=== PATIENT | male | born 1950 | race Caucasian/White ===

== ENCOUNTER 2023-11-01 08:45 | Inpatient (IN) | payer MEDICARE, SELFPAY ==
[2023-11-01] VITALS (9 sets, daily range): BP systolic 118–167; BP diastolic 62–98; BMI 33.2
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
[2023-11-01 07:34] LABS: % Basophils 0.5 % (0-2); % Eosinophils 1.2 % (0-6); % Immature Granulocytes 0.3 % (0-0.5); % Lymphocytes 10.6 % (20.5-51.1); % Monocytes 8.7 % (1.7-9.3); % Neutrophils 78.7 % (42.2-75.2); Absolute Basophils 0.1 10^3/uL (0-0.2); Absolute Eosinophils 0.1 10^3/uL (0-0.7); Absolute Lymphocytes 1.1 10^3/uL (1.2-3.4); Absolute Monocytes 0.9 10^3/uL (0.1-0.6); Absolute Neutrophils 8.2 10^3/uL (1.4-6.5); Hematocrit 50.9 % (39.0-52.0); Hemoglobin 16.4 g/dL (13.0-18.0); Mean Corp Hgb Conc. 32.2 g/dL (33.0-37.0); Mean Corpuscular Hgb 29.5 pg (27.0-31.0); Mean Corpuscular Volume 91.7 fL (80.0-94.0); Mean Platelet Volume 12.4 fL (7.4-10.4); Nucleated Red Blood Cells % 0 % (-); Platelet Count 159 10^3/uL (130-400); Red Blood Cell Count 5.55 10^6/uL (4.70-6.10); Red Cell Dist. Width 14.3 % (11.5-14.5); White Blood Cell Count 10.4 10^3/uL (4.8-10.8)
[2023-11-01 07:43] LABS: ALT (SGPT) 26 U/L (0-50); AST (SGOT) 24 U/L (17-59); Alkaline Phosphatase 62 U/L (38-126); Blood Urea Nitrogen 20 mg/dl (9-20); Calcium 9.3 mg/dl (8.4-10.2); Carbon Dioxide 31 mmol/L (22-30); Chloride 99 mmol/L (98-107); Glucose 141 mg/dl (70-99); Potassium 4.8 mmol/L (3.5-5.1); Sodium 138 mmol/L (135-145); Total Bilirubin 1.1 mg/dl (0.2-1.3); Total Protein 6.8 g/dl (6.3-8.2); eGFR > 60.00
[2023-11-01] MEDS: DUONEB 3 ML INH ×5 (07:48→19:26)
[2023-11-01] MEDS: SOLU-MEDROL PF 125 MG IV (07:48)
[2023-11-01 07:53] LABS: NT-proBNP 1190 pg/ml; Troponin I < 0.012 ng/ml
[2023-11-01] MEDS: LASIX 40 MG IV (08:43)
[2023-11-01 09:13] LABS: COVID-19 Antigen Negative (Negative)
--- NOTE | 2023-11-01 10:26 | CM ---
MEt with patient who reports he continues to live in a recovery house. He is independent. He has 3 steps to get into his apartment at the house. He does not use any DME.
PCP DR. Frederick Mosquera
PHarmacy: [facility]
His sister, Linda Sylvester is his closest family member.
HE is currently wearing oxygen in ER bed. HE does not use at home.
PLAN: HOme no needs.
[2023-11-01 11:42] LABS: Troponin I < 0.012 ng/ml
--- NOTE | 2023-11-01 12:12 | PTCARENOTE ---
pt admitted from ED AOx3 no c/O pain. RODRIGUEZ, 4L B/L bases exp. tele monitor hx of afib for which pt takes Eliquis. Wheeze abd round obese. reports last BM this AM cont B&B no edema, +PP b/l. skin CDI
--- NOTE | 2023-11-01 12:48 | PTCARENOTE ---
pt unsure of medication list, pharmacy notified
--- NOTE | 2023-11-01 13:05 | PHANOTE ---
Med Rec Note:
Home med list compiled from Dr Perez and JASSIW note on 10/13/23. Unable to interview pt due to pt at a test.
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
[2023-11-01] MEDS: SYMBICORT 160/4.5 MCG INHALER 2 PUFF INH (15:19)
[2023-11-01] MEDS: ZESTRIL 20 MG PO (15:38)
[2023-11-01 16:59] LABS: Troponin I < 0.012 ng/ml
[2023-11-01 17:19] LABS: Glucose - Point of Care 148 mg/dl (70-99)
[2023-11-01] MEDS: NOVOLOG FLEXPEN-LOW RESISTANCE SC (17:32)
[2023-11-01] MEDS: CRESTOR 10 MG PO (17:32)
[2023-11-01] MEDS: ELIQUIS 5 MG PO (19:48)
[2023-11-01 21:23] LABS: Glucose - Point of Care 150 mg/dl (70-99)
[2023-11-01 23:56] LABS: Troponin I < 0.012 ng/ml
[2023-11-02 03:28] VITALS: BP 130/79
[2023-11-02 05:39] LABS: Hematocrit 48.9 % (39.0-52.0); Hemoglobin 15.9 g/dL (13.0-18.0); Mean Corp Hgb Conc. 32.5 g/dL (33.0-37.0); Mean Corpuscular Hgb 29.6 pg (27.0-31.0); Mean Corpuscular Volume 90.9 fL (80.0-94.0); Mean Platelet Volume 12.5 fL (7.4-10.4); Platelet Count 140 10^3/uL (130-400); Red Blood Cell Count 5.38 10^6/uL (4.70-6.10); White Blood Cell Count 11.8 10^3/uL (4.8-10.8)
[2023-11-02 06:03] LABS: Troponin I < 0.012 ng/ml
[2023-11-02 06:05] LABS: ALT (SGPT) 24 U/L (0-50); AST (SGOT) 23 U/L (17-59); Albumin 3.9 g/dl (3.5-5.0); Alkaline Phosphatase 62 U/L (38-126); Blood Urea Nitrogen 27 mg/dl (9-20); Calcium 9.2 mg/dl (8.4-10.2); Carbon Dioxide 30 mmol/L (22-30); Chloride 100 mmol/L (98-107); Estimated Creatinine Clearance > 125 ml/min; Glucose 119 mg/dl (70-99); Magnesium 2.4 mg/dl (1.6-2.3); Potassium 4.3 mmol/L (3.5-5.1); Sodium 136 mmol/L (135-145); Total Bilirubin 0.8 mg/dl (0.2-1.3); Total Protein 6.5 g/dl (6.3-8.2); eGFR > 60.00
[2023-11-02 07:00] VITALS: BP 123/78
[2023-11-02] MEDS: DUONEB 3 ML INH ×4 (07:40→20:35)
[2023-11-02] MEDS: NOVOLOG FLEXPEN-LOW RESISTANCE SC ×3 (08:07→16:56)
[2023-11-02] MEDS: ZESTRIL 20 MG PO (08:09)
[2023-11-02] MEDS: PROSCAR 5 MG PO (08:09)
[2023-11-02] MEDS: DELTASONE 40 MG PO (08:09)
[2023-11-02] MEDS: ELIQUIS 5 MG PO ×2 (08:09→21:17)
[2023-11-02] MEDS: NORVASC 10 MG PO (08:09)
[2023-11-02] MEDS: FLOMAX 0.400000000000000022 MG PO (08:09)
[2023-11-02 11:00] VITALS: BP 127/66
[2023-11-02 12:25] LABS: Glucose - Point of Care 150 mg/dl (70-99)
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
[2023-11-02] MEDS: LASIX 40 MG IV (13:36)
[2023-11-02 15:00] VITALS: BP 125/62
[2023-11-02 16:53] LABS: Glucose - Point of Care 134 mg/dl (70-99)
[2023-11-02] MEDS: CRESTOR 10 MG PO (17:40)
[2023-11-02 19:36] VITALS: BP 109/53
[2023-11-02 21:24] LABS: Glucose - Point of Care 199 mg/dl (70-99)
[2023-11-02] MEDS: SOLU-MEDROL PF 40 MG IV (21:47)
[2023-11-02 23:40] VITALS: BP 109/66
--- NOTE | 2023-11-03 02:46 | PTCARENOTE ---
Patient continues to be tachycardic with any activity OOB. Patient stood at bedside to use urinal and heart rate noted to be as high as 175 bpm on monitor. Patient in the 80-90s at rest. AJY Love on unit. Reported patient receives
scheduled Duo nebs. Xopenex ordered in place of Duo neb. Will monitor.
--- NOTE | 2023-11-03 03:02 | W.PN.UPDATE ---
Update Note
Progress Note Update
HR noted to increase to 160s with any activity. Recovers once still.
Will change duonebs to xopenex due to HR
Hx of afib but on no rate control medications.
Will continue to monitor closely, may require rate control meds.
[2023-11-03 03:36] VITALS: BP 133/80
[2023-11-03 05:31] LABS: Hemoglobin 15.9 g/dL (13.0-18.0); Mean Corp Hgb Conc. 31.8 g/dL (33.0-37.0); Mean Corpuscular Hgb 30.1 pg (27.0-31.0); Mean Corpuscular Volume 94.5 fL (80.0-94.0); Mean Platelet Volume 12.8 fL (7.4-10.4); Platelet Count 175 10^3/uL (130-400); Red Blood Cell Count 5.29 10^6/uL (4.70-6.10); Red Cell Dist. Width 14.5 % (11.5-14.5); White Blood Cell Count 12.1 10^3/uL (4.8-10.8)
[2023-11-03 06:15] LABS: ALT (SGPT) 30 U/L (0-50); AST (SGOT) 28 U/L (17-59); Albumin 3.8 g/dl (3.5-5.0); Alkaline Phosphatase 68 U/L (38-126); Blood Urea Nitrogen 29 mg/dl (9-20); Calcium 9.1 mg/dl (8.4-10.2); Carbon Dioxide 36 mmol/L (22-30); Chloride 101 mmol/L (98-107); Estimated Creatinine Clearance 102 ml/min; Glucose 154 mg/dl (70-99); Potassium 5.6 mmol/L (3.5-5.1); Sodium 140 mmol/L (135-145); Total Bilirubin 0.8 mg/dl (0.2-1.3); Total Protein 6.4 g/dl (6.3-8.2); eGFR > 60.00
--- NOTE | 2023-11-03 06:45 | W.PN.UPDATE ---
Update Note
Progress Note Update
K+ 5.6 this am.
Will give one dose lokelma and hold lisinopril this am
recheck BMP later today
--- NOTE | 2023-11-03 06:46 | PTCARENOTE ---
Patient's K+ 5.6 this morning. K+ yesterday was 4.3. Unsure of etiology. JAY Love made aware, no new orders given at this time.
[2023-11-03 07:00] VITALS: BP 133/89
[2023-11-03] MEDS: XOPENEX 1.25 MG INHALANT SOLUTION INH ×3 (07:20→19:55)
[2023-11-03] MEDS: LOKELMA 5 GRAM PO (07:34)
[2023-11-03 08:10] LABS: Glucose - Point of Care 304 mg/dl (70-99)
[2023-11-03] MEDS: NORVASC 10 MG PO (08:32)
[2023-11-03] MEDS: FLOMAX 0.400000000000000022 MG PO (08:32)
[2023-11-03] MEDS: PROSCAR 5 MG PO (08:33)
[2023-11-03] MEDS: SOLU-MEDROL PF 40 MG IV (08:33)
[2023-11-03] MEDS: ELIQUIS 5 MG PO ×2 (08:33→20:33)
[2023-11-03] MEDS: NOVOLOG FLEXPEN-LOW RESISTANCE 4 UNITS SC (08:48)
[2023-11-03 11:00] VITALS: BP 124/80
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
[2023-11-03 12:30] LABS: Glucose - Point of Care 148 mg/dl (70-99)
[2023-11-03] MEDS: NOVOLOG FLEXPEN-LOW RESISTANCE SC (12:32)
[2023-11-03 15:00] VITALS: BP 122/85
--- NOTE | 2023-11-03 16:38 | CM ---
Patient seen at bedside, on O2, currently no O2 at home. Patient would like [facility] at discharge if needed. CM will continue to follow for discharge planning needs.
Plan; home with VN vs home with no needs; watch for home O2
--- NOTE | 2023-11-03 16:38 | PTCARENOTE ---
pt HR elevated with activity, but does deturn to normal rate shortly after. attending notified.
[2023-11-03 16:42] LABS: Glucose - Point of Care 154 mg/dl (70-99)
[2023-11-03] MEDS: CRESTOR 10 MG PO (17:57)
[2023-11-03] MEDS: NOVOLOG FLEXPEN-LOW RESISTANCE 1 UNITS SC (17:57)
[2023-11-03 19:30] VITALS: BP 139/90
[2023-11-03] MEDS: LOPRESSOR 12.5 MG PO (20:33)
[2023-11-03 23:22] VITALS: BP 135/88
[2023-11-04 03:20] VITALS: BP 163/87
[2023-11-04 05:29] LABS: Hematocrit 48.4 % (39.0-52.0); Hemoglobin 15.3 g/dL (13.0-18.0); Mean Corp Hgb Conc. 31.6 g/dL (33.0-37.0); Mean Corpuscular Hgb 29.5 pg (27.0-31.0); Mean Corpuscular Volume 93.3 fL (80.0-94.0); Mean Platelet Volume 11.9 fL (7.4-10.4); Platelet Count 169 10^3/uL (130-400); Red Blood Cell Count 5.19 10^6/uL (4.70-6.10); Red Cell Dist. Width 14.4 % (11.5-14.5); White Blood Cell Count 11.5 10^3/uL (4.8-10.8)
[2023-11-04 05:54] LABS: Blood Urea Nitrogen 24 mg/dl (9-20); Calcium 8.8 mg/dl (8.4-10.2); Carbon Dioxide 38 mmol/L (22-30); Chloride 100 mmol/L (98-107); Estimated Creatinine Clearance > 125 ml/min; Glucose 94 mg/dl (70-99); Magnesium 2.4 mg/dl (1.6-2.3); Sodium 137 mmol/L (135-145); eGFR > 60.00
[2023-11-04 07:00] VITALS: BP 147/86
[2023-11-04 07:41] LABS: Glucose - Point of Care 100 mg/dl (70-99)
[2023-11-04] MEDS: XOPENEX 1.25 MG INHALANT SOLUTION INH ×3 (08:09→19:28)
[2023-11-04] MEDS: ELIQUIS 5 MG PO ×2 (08:41→20:14)
[2023-11-04] MEDS: FLOMAX 0.400000000000000022 MG PO (08:41)
[2023-11-04] MEDS: NOVOLOG FLEXPEN-LOW RESISTANCE SC ×2 (08:41→17:03)
[2023-11-04] MEDS: LOPRESSOR 12.5 MG PO ×2 (08:42→20:18)
[2023-11-04] MEDS: DELTASONE 50 MG PO (08:42)
[2023-11-04] MEDS: PROSCAR 5 MG PO (08:42)
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
[2023-11-04 11:00] VITALS: BP 141/85
[2023-11-04 12:03] LABS: Glucose - Point of Care 178 mg/dl (70-99)
[2023-11-04] MEDS: NOVOLOG FLEXPEN-LOW RESISTANCE 1 UNITS SC (13:04)
[2023-11-04] MEDS: ATROVENT NEBULES 0.5 MG INH ×2 (13:16→19:29)
--- NOTE | 2023-11-04 14:37 | CM ---
Patient seen at bedside, patient again denied having an agency that works with him for case management. Patient is aware of possible need for Oxygen at home and is concerned about having O2 in the room that he rents. Patient has history of smoking.
CM will continue to follow for discharge planning needs.
Plan; home with VN/watch for home O2 needs.
[2023-11-04 15:00] VITALS: BP 134/79
[2023-11-04 15:41] VITALS: BMI 33.2
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
[2023-11-04 17:01] LABS: Glucose - Point of Care 144 mg/dl (70-99)
[2023-11-04] MEDS: CRESTOR 10 MG PO (17:13)
[2023-11-04] MEDS: DECADRON 6 MG IV (17:14)
[2023-11-04 21:30] LABS: Glucose - Point of Care 132 mg/dl (70-99)
[2023-11-04 23:10] VITALS: BP 136/77
[2023-11-05] MEDS: DECADRON 6 MG IV ×2 (05:27→18:07)
[2023-11-05 05:30] LABS: Hematocrit 49.1 % (39.0-52.0); Hemoglobin 16.1 g/dL (13.0-18.0); Mean Corp Hgb Conc. 32.8 g/dL (33.0-37.0); Mean Corpuscular Hgb 29.5 pg (27.0-31.0); Mean Corpuscular Volume 89.9 fL (80.0-94.0); Mean Platelet Volume 11.9 fL (7.4-10.4); Platelet Count 162 10^3/uL (130-400); Red Blood Cell Count 5.46 10^6/uL (4.70-6.10); White Blood Cell Count 11.4 10^3/uL (4.8-10.8)
[2023-11-05 05:46] LABS: Blood Urea Nitrogen 23 mg/dl (9-20); Calcium 9.3 mg/dl (8.4-10.2); Carbon Dioxide 34 mmol/L (22-30); Chloride 97 mmol/L (98-107); Estimated Creatinine Clearance > 125 ml/min; Glucose 141 mg/dl (70-99); Magnesium 2.4 mg/dl (1.6-2.3); Potassium 4.9 mmol/L (3.5-5.1); Sodium 137 mmol/L (135-145); eGFR > 60.00
[2023-11-05 05:54] LABS: NT-proBNP 587 pg/ml
[2023-11-05 06:00] VITALS: BMI 32.5
[2023-11-05 07:00] VITALS: BP 151/98
[2023-11-05] MEDS: ATROVENT NEBULES 0.5 MG INH ×3 (07:24→20:12)
[2023-11-05] MEDS: XOPENEX 1.25 MG INHALANT SOLUTION INH ×3 (07:25→20:12)
[2023-11-05 07:58] LABS: Glucose - Point of Care 116 mg/dl (70-99)
[2023-11-05] MEDS: LOPRESSOR 12.5 MG PO ×2 (07:59→19:22)
[2023-11-05] MEDS: NOVOLOG FLEXPEN-LOW RESISTANCE SC ×3 (07:59→17:19)
[2023-11-05] MEDS: FLOMAX 0.400000000000000022 MG PO (07:59)
[2023-11-05] MEDS: ELIQUIS 5 MG PO ×2 (08:00→19:20)
[2023-11-05] MEDS: PROSCAR 5 MG PO (08:00)
--- NOTE | 2023-11-05 10:13 | CM ---
Patient seen at bedside. Patient remains on O2 and stated that CM could call sister to review discharge planning needs.
Plan; call family; watch for home O2 and VN needs.
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
[2023-11-05 12:05] LABS: Glucose - Point of Care 127 mg/dl (70-99)
--- NOTE | 2023-11-05 12:08 | PN.CDI ---
CDI
- -
CDI:
Physician Documentation Request
Admit Date: 11/01/23 08:45
Dear Doctor Sincere,
Clinical Indicators:
Patient admitted with acute hypoxic respiratory failure due to COPD exacerbation & possible acute HFpEF.
2/ Lokelma 5 gm po x 1 given.
Potassium level
11/03/23
05:17
Potassium 5.6 H D
Based on the above, could you clarify in the progress notes, the appropriate diagnosis, if significant, that supports the above abnormalities and additional evaluation, monitoring and/or treatment rendered:
Hyperkalemia
Abnormal lab value, clinically insignificant
Other
Use of terms such as suspected, likely, concern for, or probable (associated with a specific diagnosis that is being evaluated, monitored, or treated as if it exists) are acceptable and can be coded in the inpatient setting, when documented at the
time of discharge.
Thank you,
MARCE Garcia RN
CDI Specialist
available via tiger text
Please use your independent medical judgment in providing your response.
[2023-11-05 14:58] VITALS: BP 125/65; PULSE 68; O2SAT 88
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
[2023-11-05 15:00] VITALS: BP 118/71; BMI 32.5
[2023-11-05] MEDS: NORVASC 2.5 MG PO (16:43)
[2023-11-05 16:58] VITALS: BP 146/87; PULSE 76; O2SAT 92
[2023-11-05 17:16] LABS: Glucose - Point of Care 139 mg/dl (70-99)
[2023-11-05] MEDS: CRESTOR 10 MG PO (18:07)
[2023-11-05] MEDS: MUCINEX 600 MG PO (19:28)
[2023-11-05] MEDS: VIBRAMYCIN 100 MG PO (19:29)
[2023-11-05 21:31] LABS: Glucose - Point of Care 139 mg/dl (70-99)
[2023-11-05 23:00] VITALS: BP 130/76
[2023-11-06] MEDS: DECADRON 6 MG IV (05:08)
[2023-11-06 05:57] LABS: Hematocrit 51.8 % (39.0-52.0); Hemoglobin 16.4 g/dL (13.0-18.0); Mean Corp Hgb Conc. 31.7 g/dL (33.0-37.0); Mean Corpuscular Hgb 28.9 pg (27.0-31.0); Mean Corpuscular Volume 91.4 fL (80.0-94.0); Mean Platelet Volume 12.5 fL (7.4-10.4); Platelet Count 202 10^3/uL (130-400); Red Blood Cell Count 5.67 10^6/uL (4.70-6.10); Red Cell Dist. Width 14.1 % (11.5-14.5); White Blood Cell Count 12.8 10^3/uL (4.8-10.8)
[2023-11-06 06:00] VITALS: BMI 32.6
[2023-11-06 06:17] LABS: Blood Urea Nitrogen 27 mg/dl (9-20); Calcium 9.6 mg/dl (8.4-10.2); Carbon Dioxide 35 mmol/L (22-30); Chloride 98 mmol/L (98-107); Estimated Creatinine Clearance 114 ml/min; Glucose 126 mg/dl (70-99); Magnesium 2.3 mg/dl (1.6-2.3); Potassium 4.8 mmol/L (3.5-5.1); Sodium 137 mmol/L (135-145); eGFR > 60.00
[2023-11-06 07:00] VITALS: BP 132/86
[2023-11-06 07:39] LABS: Glucose - Point of Care 119 mg/dl (70-99)
[2023-11-06] MEDS: ATROVENT NEBULES 0.5 MG INH ×3 (07:48→20:11)
[2023-11-06] MEDS: XOPENEX 1.25 MG INHALANT SOLUTION INH ×3 (07:48→20:11)
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
[2023-11-06] MEDS: NOVOLOG FLEXPEN-LOW RESISTANCE SC ×2 (10:27→16:53)
[2023-11-06] MEDS: NORVASC 2.5 MG PO (10:40)
[2023-11-06] MEDS: MUCINEX 600 MG PO ×2 (10:40→21:19)
[2023-11-06] MEDS: ELIQUIS 5 MG PO ×2 (10:40→21:19)
[2023-11-06] MEDS: LOPRESSOR 12.5 MG PO ×2 (10:41→21:18)
[2023-11-06] MEDS: PROSCAR 5 MG PO (10:41)
[2023-11-06] MEDS: FLOMAX 0.400000000000000022 MG PO (10:41)
[2023-11-06] MEDS: VIBRAMYCIN 100 MG PO ×2 (10:41→21:18)
[2023-11-06 11:08] VITALS: BP 127/74; PULSE 71; O2SAT 92
[2023-11-06 12:19] LABS: Glucose - Point of Care 162 mg/dl (70-99)
[2023-11-06] MEDS: NOVOLOG FLEXPEN-LOW RESISTANCE 1 UNITS SC (12:42)
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
[2023-11-06 15:00] VITALS: BP 134/76
[2023-11-06 16:36] LABS: Glucose - Point of Care 141 mg/dl (70-99)
[2023-11-06] MEDS: CRESTOR 10 MG PO (17:45)
[2023-11-06 21:40] LABS: Glucose - Point of Care 120 mg/dl (70-99)
[2023-11-06 23:25] VITALS: BP 115/70
[2023-11-07] MEDS: DESENEX/MITRAZOL/ZEASORB 1 APPLIC TOPICAL ×3 (00:33→20:37)
[2023-11-07 05:51] LABS: Hematocrit 50.3 % (39.0-52.0); Mean Corp Hgb Conc. 31.8 g/dL (33.0-37.0); Mean Corpuscular Hgb 29.8 pg (27.0-31.0); Mean Corpuscular Volume 93.7 fL (80.0-94.0); Mean Platelet Volume 12.4 fL (7.4-10.4); Platelet Count 186 10^3/uL (130-400); Red Blood Cell Count 5.37 10^6/uL (4.70-6.10); Red Cell Dist. Width 14.2 % (11.5-14.5); White Blood Cell Count 9.2 10^3/uL (4.8-10.8)
[2023-11-07 06:00] VITALS: BMI 32.5
[2023-11-07 06:12] LABS: Blood Urea Nitrogen 25 mg/dl (9-20); Calcium 9.2 mg/dl (8.4-10.2); Carbon Dioxide 37 mmol/L (22-30); Chloride 101 mmol/L (98-107); Estimated Creatinine Clearance 102 ml/min; Glucose 101 mg/dl (70-99); Potassium 4.3 mmol/L (3.5-5.1); Sodium 139 mmol/L (135-145); eGFR > 60.00
[2023-11-07 07:00] VITALS: BP 146/73
[2023-11-07] MEDS: ATROVENT NEBULES 0.5 MG INH ×3 (07:55→19:28)
[2023-11-07] MEDS: XOPENEX 1.25 MG INHALANT SOLUTION INH ×3 (07:55→19:28)
[2023-11-07 08:35] LABS: Glucose - Point of Care 108 mg/dl (70-99)
[2023-11-07] MEDS: NOVOLOG FLEXPEN-LOW RESISTANCE SC ×2 (08:43→17:31)
[2023-11-07] MEDS: LOPRESSOR 12.5 MG PO ×2 (09:25→20:36)
[2023-11-07] MEDS: MUCINEX 600 MG PO ×2 (09:25→20:36)
[2023-11-07] MEDS: PROSCAR 5 MG PO (09:25)
[2023-11-07] MEDS: ELIQUIS 5 MG PO ×2 (09:25→20:37)
[2023-11-07] MEDS: DELTASONE 40 MG PO (09:25)
[2023-11-07] MEDS: FLOMAX 0.400000000000000022 MG PO (09:26)
[2023-11-07] MEDS: NORVASC 2.5 MG PO (09:26)
[2023-11-07] MEDS: VIBRAMYCIN 100 MG PO ×2 (09:26→20:36)
--- NOTE | 2023-11-07 09:48 | CM ---
Addendum entered by Sruthi Alfaro 11/07/23 14:39:
Per Attending, will wean patient from oxygen [facility]
Addendum entered by Sruthi Alfaro 11/07/23 14:26:
Sister, Linda, notified of need for home oxygen. She stated concerns that her brother does not have the dexterity in his hands to manage O2 on his own. Attending notified via [place] Text
Home Oxygen vendor will provide education at the bedside; nursing home director will observe and verify that patient is able to demonstrate use of equipment before discharge
Addendum entered by Sruthi Alfaro 11/07/23 14:12:
Spoke with jail nut tightener, Ankush, via phone # [phone]. He stated that the residents are not permitted to smoke in the home. They are only permitted to smoke outside.
Ankush has no problem with patient going home with oxygen. No other residents have oxygen. The patient would need to be able to manage it on his own. We need to ensure that patient can demonstrate that he is able to do so.
Addendum entered by Sruthi Alfaro 11/07/23 12:22:
Plan: discharge to home today with home health services from [facility]
friend, Drew, will give him a ride home
Signed IMM on the chart
Addendum entered by Sruthi Alfaro 11/07/23 12:19:
Met with patient, weaned off oxygen; believes he will be going home today; no DC orders yet
His friend, Drew, will give him a ride home
Original Note:
CM spoke with patient's sister, Linda via phone; was only able to identify the first name of the person who owns/manages the home (his name is Ankush and she will need to get contact phone number from the patient) where her brother lives.
Patient is a smoker and pending home oxygen needs, discussed that CM would contact Home to find out if patient can return to home with home oxygen.
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
[2023-11-07 11:40] LABS: Glucose - Point of Care 165 mg/dl (70-99)
[2023-11-07] MEDS: NOVOLOG FLEXPEN-LOW RESISTANCE 1 UNITS SC (12:06)
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
--- NOTE | 2023-11-07 13:26 | W.DCSUMMARY ---
Discharge Summary
Discharge Data
Date of Admission: 11/01/23
Date of Discharge: 11/08/23
-
Pending Results: No
Hospital Course
Principal Diagnosis:
Acute hypoxic respiratory insufficiency, resolved
Chronic obstructive pulmonary disease (CODP) exacerbation
Possible acute diastolic heart failure
Chronic Diagnoses:�
Persistent Atrial fibrillation
Essential hypertension
Hyperlipidemia
[id number] diabetes
Tobacco use
History of traumatic brain injury with skull plate
Obesity, BMI 32
Consultations:�
Pulmonary
Procedures:�
None
Clinical course:�
This is a 72-year-old male with past medical history as stated above, who presented with shortness of breath, wheezing and left-sided chest discomfort.
Problem 1:
Acute hypoxic respiratory insufficiency, due to COPD exacerbation.
He was weaned from 3-4L NC oxygen back to room air.
His final walking pulse ox indicated no need for home oxygen therapy.
Problem 2:
COPD exacerbation.
This was associated with mild chest discomfort, which resolved uneventfully. Of note, his troponins were negative.
He received IV steroid while in the hospital, and was transitioned to oral prednisone 40mg daily. He can continue with prednisone taper following discharge.
Problem 3:
Possible acute diastolic CHF.
His BNP was elevated at 1190.
He received IV Lasix as needed.
His Echo was unrevealing:�noted normal left ventricular systolic function. EF 56%. Diastolic function indeterminate due to atrial fibrillation.�
As for the rest of his medical problems, they were stable during his hospital stay.
Discharge Plan
-
Patient Disposition: Other
Discharge Diagnosis/Procedures: COPD exacerbation
Condition: Fair
Diet: As tolerated
Activity: As tolerated
Driving Restrictions: As prior to admission
Blood Work: BMP in 1 week, result to your PCP
Activity Restrictions/Additional Instructions:
Continue prednisone and taper as instructed
Take doxycycline for 2 more days
Referrals:
Lazaro Alexander MD [Active] - in two to four weeks
Frederick Vázquez DO [Family Provider] - in less than 1 week
Prescriptions:
New
doxycycline hyclate 100 mg Capsule
100 mg PO Q12 2 Days Qty: 4 0RF
prednisone 10 mg Tablet
See Rx Instructions .ROUTE .COMPLEX Qty: 30 0RF
Rx Instructions:
Take By Mouth:
40 mg daily x2 days, 30 mg daily x3 days, 20 mg daily x3 days, 10 mg daily x3 days.
Continued
metformin 500 MG tablet
500 mg PO BID@0800,1700
acetaminophen 325 MG tablet
650 mg PO Q6HPRN PRN (Reason: mild pain) Qty: 30 0RF
finasteride 5 MG tablet
5 mg PO DAILY Qty: 30 0RF
rosuvastatin 10 MG tablet
10 mg PO QPM Qty: 30 0RF
Eliquis 5 mg Tablet
5 mg PO BID
amlodipine-benazepril 10-40 mg capsule
1 cap PO DAILY
Trelegy Ellipta 200-62.5-25 mcg blister with device
1 inh INHALATION R DAILY
multivitamin Tablet
1 tab PO DAILY
zinc sulfate 50 mg zinc (220 mg) Tablet
50 mg PO DAILY
cholecalciferol (vitamin D3) [Vitamin D3] 25 mcg (1,000 unit) Capsule
50 mcg PO DAILY
Discharge Orders:
Discharge Patient (As Directed); Ordered 11/08/23
Ordered By: Mague Post
--- NOTE | 2023-11-07 14:47 | VNURNOTE ---
Home Health Liaison met with patient at 1130 to discuss [facility] nurse/therapy, visits, schedule and homebound status. Patient is agreeable and understands that visits at home will be 2-3 x per week to assess and teach medical management.
Call to patient's sister Linda to discuss above and she is in agreement and supportive but due to recent surgery she is unable to assist patient.
[facility] brochure provided with contact information. Patient is aware that [facility] will contact him for start of care in 1-2 days after discharge from .
[facility] referral completed in [facility].
Home O2 assessment again today and results qualify patient for O2.
Documentation faxed to [email or web address] at [phone] and Simon contacted with regard to patient instruction to determine whether patient can manage home O2 safely.
Liaison & CM discussed patient safety with new home O2, smoking hx and ability to manage home O2 on his own.
Simon has shelter manager biostatistics Ankush contact info([phone]) and documentation except updated notes.
[2023-11-07 15:00] VITALS: BP 150/77
[2023-11-07 16:49] LABS: Glucose - Point of Care 141 mg/dl (70-99)
[2023-11-07] MEDS: CRESTOR 10 MG PO (17:33)
[2023-11-07 20:35] VITALS: BP 149/97
[2023-11-07 21:43] LABS: Glucose - Point of Care 174 mg/dl (70-99)
[2023-11-07 23:05] VITALS: BP 131/76
[2023-11-08 06:00] VITALS: BMI 32.3
[2023-11-08 07:00] VITALS: BP 155/95
[2023-11-08 07:13] LABS: Hematocrit 51.6 % (39.0-52.0); Hemoglobin 16.6 g/dL (13.0-18.0); Mean Corp Hgb Conc. 32.2 g/dL (33.0-37.0); Mean Corpuscular Hgb 30.1 pg (27.0-31.0); Mean Corpuscular Volume 93.6 fL (80.0-94.0); Mean Platelet Volume 12.3 fL (7.4-10.4); Platelet Count 190 10^3/uL (130-400); Red Blood Cell Count 5.51 10^6/uL (4.70-6.10); Red Cell Dist. Width 13.8 % (11.5-14.5); White Blood Cell Count 8.2 10^3/uL (4.8-10.8)
[2023-11-08 07:16] LABS: Glucose - Point of Care 98 mg/dl (70-99)
[2023-11-08 07:24] LABS: Glucose - Point of Care 94 mg/dl (70-99)
[2023-11-08] MEDS: NOVOLOG FLEXPEN-LOW RESISTANCE SC ×2 (07:26→13:02)
[2023-11-08] MEDS: XOPENEX 1.25 MG INHALANT SOLUTION INH ×2 (07:32→13:33)
[2023-11-08] MEDS: ATROVENT NEBULES 0.5 MG INH ×2 (07:32→13:33)
[2023-11-08 07:45] LABS: Blood Urea Nitrogen 20 mg/dl (9-20); Calcium 9.7 mg/dl (8.4-10.2); Carbon Dioxide 35 mmol/L (22-30); Chloride 99 mmol/L (98-107); Estimated Creatinine Clearance 114 ml/min; Glucose 109 mg/dl (70-99); Potassium 5.5 mmol/L (3.5-5.1); Sodium 140 mmol/L (135-145); eGFR > 60.00
[2023-11-08] MEDS: LOPRESSOR 12.5 MG PO (08:36)
[2023-11-08] MEDS: DELTASONE 40 MG PO (08:36)
[2023-11-08] MEDS: FLOMAX 0.400000000000000022 MG PO (08:36)
[2023-11-08] MEDS: PROSCAR 5 MG PO (08:36)
[2023-11-08] MEDS: VIBRAMYCIN 100 MG PO (08:36)
[2023-11-08] MEDS: MUCINEX 600 MG PO (08:36)
[2023-11-08] MEDS: NORVASC 2.5 MG PO (08:36)
[2023-11-08] MEDS: ELIQUIS 5 MG PO (08:36)
[2023-11-08] MEDS: DESENEX/MITRAZOL/ZEASORB 1 APPLIC TOPICAL (08:37)
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
[2023-11-08 11:35] LABS: Glucose - Point of Care 112 mg/dl (70-99)
--- NOTE | 2023-11-08 13:57 | CM ---
Patient for discharge home with [facility] to follow. Patient did not qualify for home O2 today per testing. CM will continue to follow for discharge planning needs
Plan; home with [facility]
== END 2023-11-08 15:37 | disposition home health service (06) | DRG 291 ==
LOC: 3 WEST ACU 08:45
PROVIDERS: ADMITTING PHYSICIAN Internal Medicine; ATTENDING PHYSICIAN Internal Medicine; CONSULT PHYSICIAN Internal Medicine Pulmonary Disease; EMERGENCY PHYSICIAN Emergency Medicine; FAMILY PHYSICIAN Family Medicine
DX: I11.0 Hypertensive heart disease with heart failure (principal); I50.31 Acute diastolic (congestive) heart failure; J44.1 Chronic obstructive pulmonary disease with (acute) exacerbation; I48.19 Other persistent atrial fibrillation; F17.200 Nicotine dependence, unspecified, uncomplicated; N40.0 Benign prostatic hyperplasia without lower urinary tract symptoms; E11.9 Type 2 diabetes mellitus without complications; E78.5 Hyperlipidemia, unspecified; E87.5 Hyperkalemia; R06.89 Other abnormalities of breathing; R09.02 Hypoxemia; F10.10 Alcohol abuse, uncomplicated; E66.9 Obesity, unspecified; Z88.1 Allergy status to other antibiotic agents; Z88.8 Allergy status to other drugs, medicaments and biological substances; Z79.51 Long term (current) use of inhaled steroids; Z79.84 Long term (current) use of oral hypoglycemic drugs; Z11.52 Encounter for screening for COVID-19; Z87.820 Personal history of traumatic brain injury; Z79.01 Long term (current) use of anticoagulants; Z68.32 Body mass index [BMI] 32.0-32.9, adult
CPT/HCPCS: 71046; 80048; 80053; 82962; 83735; 83880; 84484; 85025; 85027; 87070; 87502; 87807; 87811; 93005; 93306; 93970; 94640; 96374; 96375; 97116; 97162; 97166; 99285

== ENCOUNTER → 2023-12-04 09:42 | Outpatient (REF) | payer MEDICARE, SELFPAY | LOC: HWRAD 09:42 | PROVIDERS: ATTENDING PHYSICIAN Internal Medicine Critical Care Medicine; FAMILY PHYSICIAN Family Medicine | DX: Z87.891 Personal history of nicotine dependence (principal) | CPT/HCPCS: 71271 ==

== ENCOUNTER 2024-06-28 16:47 | Inpatient (IN) | payer MEDICARE, SELFPAY ==
[2024-06-28] VITALS (16 sets, daily range): BP systolic 127–160; BP diastolic 74–108; PULSE 3–89; BMI 34.7; BMI 33.8
[2024-06-28] MEDS: ATROVENT NEBULES 1 MG INH (13:42)
[2024-06-28] MEDS: VENTOLIN NEBULES 10 MG INH (13:43)
[2024-06-28] MEDS: MAGNESIUM SULFATE 50 IV (13:54)
[2024-06-28 14:02] LABS: % Basophils 0.1 % (0-2); % Immature Granulocytes 0.4 % (0-0.5); % Lymphocytes 9.4 % (20.5-51.1); % Monocytes 7.4 % (1.7-9.3); % Neutrophils 82.7 % (42.2-75.2); Absolute Lymphocytes 0.9 10^3/uL (1.2-3.4); Absolute Monocytes 0.7 10^3/uL (0.1-0.6); Absolute Neutrophils 7.6 10^3/uL (1.4-6.5); Hematocrit 48.3 % (39.0-52.0); Hemoglobin 15.1 g/dL (13.0-18.0); Mean Corp Hgb Conc. 31.3 g/dL (33.0-37.0); Mean Corpuscular Volume 95.8 fL (80.0-94.0); Mean Platelet Volume 12.7 fL (7.4-10.4); Nucleated Red Blood Cells % 0.4 % (-); Platelet Count 174 10^3/uL (130-400); Red Blood Cell Count 5.04 10^6/uL (4.70-6.10); Red Cell Dist. Width 15.5 % (11.5-14.5); Venous Blood Gas B.E. 3.7 mmol/L (-4 to +4); Venous Blood Gas HCO3 32.5 mmol/L (22-27); Venous Blood Gas O2 Sat % 99.1 %; Venous Blood Gas pCO2 66 mmHg (35-48); Venous Blood Gas pO2 176 mmHg (30-50); White Blood Cell Count 9.2 10^3/uL (4.8-10.8)
[2024-06-28 14:27] LABS: ALT (SGPT) 47 U/L (0-50); AST (SGOT) 32 U/L (17-59); Albumin 4.2 g/dl (3.5-5.0); Alkaline Phosphatase 60 U/L (38-126); Blood Urea Nitrogen 31 mg/dl (9-20); Calcium 9.6 mg/dl (8.4-10.2); Carbon Dioxide 31 mmol/L (22-30); Chloride 100 mmol/L (98-107); Estimated Creatinine Clearance 93 ml/min; Glucose 213 mg/dl (70-99); Potassium 5.2 mmol/L (3.5-5.1); Sodium 140 mmol/L (135-145); Total Bilirubin 0.6 mg/dl (0.2-1.3); Total Protein 6.7 g/dl (6.3-8.2); eGFR > 60.00
[2024-06-28 14:32] LABS: Alcohol None Detected
[2024-06-28 14:33] LABS: NT-proBNP 11700 pg/ml; Troponin I 0.032 ng/ml
[2024-06-28 14:47] LABS: COVID-19 Antigen Negative (Negative)
--- NOTE | 2024-06-28 15:01 | ED.GENMED ---
History of Present Illness
<Gil Wilhelm PA-C - Last Filed: 06/28/24 18:57>
General
Chief Complaint: Breathing Problem
Time Seen by Provider: 06/28/24 13:36
History of Present Illness
History of Present Illness:
73-year-old male with history of COPD, current tobacco use, A-fib on Eliquis, insulin-dependent diabetes presents for evaluation of worsening shortness of breath over the past week. Reports chills and sweats no objective fever. Denies chest pain.
Uncertain if he has any new leg swelling. Lives alone, denies any known ill contacts. Does continue to smoke
Past History
<Gil Wilhelm PA-C - Last Filed: 06/28/24 18:57>
Past History
ED Past Surgical History: Other (craniotomy); Negative Urological
Social History
Tobacco: Smoker
Alcohol: None
Drug: None
Personal: Single
Living: alone
Employment: Employed
Family History
Family History: Other (Noncontributory)
Review of Systems
<Gil Wilhelm PA-C - Last Filed: 06/28/24 18:57>
Review of Systems
Allergies reviewed?: Yes
All Other Systems: ROS reviewed and negative except as documented in HPI and ROS
Phy Exam
<Gil Wilhelm PA-C - Last Filed: 06/28/24 18:57>
Physical Exam
Physical Exam:
GEN: Appearing, 1-2 word dyspnea
Eyes: PERRLA, EOMs intact, no scleral icterus
HENT: NCAT, oral mucosa moist, no JVD, no cervical adenopathy.
Lungs: Acute respiratory distress with 1-2 word dyspnea and accessory muscle use, coarse wheezes as well as rhonchi and rales heard throughout all lung beebe with poor air exchange in the bases
Cardiac: RRR, no M/R/G, no peripheral edema. Radial pulses 2+ bilat
Neuro: Alert, profoundly slurred speech, moves all extremities freely
MSK: No gross deformity or ecchymosis. No edema. No digital clubbing
Skin: No rashes, petechiae. Normal color, no pallor or jaundice.
Psych: Calm, cooperative, proper hygiene
Scores
<Gil Wilhelm PA-C - Last Filed: 06/28/24 18:57>
Heart Failure Risk
Heart Failure Risk Score: Yes
History of Stroke or TIA: No
History of intubation for respiratory distress: No
Heart rate on ED arrival >/= 110: Yes
SaO2 <90% on arrival on room air: Yes
HR >/=110 during 3min walk test (or too ill to perform test): Yes
ECG has acute ischemic changes: No
Urea >/=12mmol/L (BUN 33.6mg/dL): No
Serum CO2>/=35mmol/L: No
Troponin I or T elevated to ME Level (0.4mg/dL): No
NT-proBNP >/=5,000ng/L (5,000pg/ml): Yes
HF Risk Score: 4
Admission Status: HIGH RISK 26.1% Consider SNF treatment or admission to hospital
Course
<Gil Wilhelm PA-C - Last Filed: 06/28/24 18:57>
Orders/Labs/Results
Orders:
Orders
06/28/24 13:36
Albuterol Sulfate [Ventolin Nebules] 10 mg INH R NOW STA
Ipratropium Nebs [Atrovent Nebules] 1 mg INH R NOW STA
06/28/24 13:37
CR Chest Portable - 1 View Urgent
Comment:
Reason For Exam: SOB
Reason Study Needs to be Portable: Other
06/28/24 13:38
Magnesium Sulfate 2 Gram/50 ml [Magnesium Sulfate] 2 gram in 50 ml IV NOW
06/28/24 13:49
Alcohol Urgent
Complete Blood Count/With Diff Urgent
Comprehensive Metabolic Panel Urgent
NT-proBNP Urgent
Troponin I Urgent
Venous Blood Gas Urgent
%Oxygen/Room Air: 72
06/28/24 13:53
ECG [Electrocardiogram (*1)] Urgent
Reason for Study: Shortness of Breath
EKG- Treatment ONCE
06/28/24 14:20
COVID-19 Antigen Urgent
Influenza A+B Rapid Molecular Urgent
GERALDO Source: [facility]
Specimen Description:
MethylPREDNISolone PF [Solu-Medrol Pf] 60 mg IV NOW STA
06/28/24 14:54
Furosemide [Lasix] 40 mg IV ONCE ONE
06/28/24 15:04
Azithromycin 500 mg/250 ml [Zithromax Infusion] 500 mg in 250 ml IV NOW
06/28/24 16:06
Admit/Transfer Patient As Directed
Co-Sign Provider:
Level of Care: Inpatient admission
Assign to:: ICU
Physician / Group: Hospitalist
Diagnosis: Dyspnea
Reason for Hospitalization: .
Expected length of stay greater than two midnights?: Yes
ELOS- Estimated Length of Stay in days: 3
I certify the patient meets the requirements for IP care: Yes
PRN Pain Medication Management As Directed
May give lesser potent ordered pain med per pt: Yes
preference::
Protocol:: Medication orders for pain may be administered in a
manner that supports deferring to patient preference
when the pt is:
- Requesting an ordered lesser potent pain medication.
Least to most potent pain medications are defined
as: acetaminophen < NSAID < tramadol < opioids
(morphine, oxycodone, hydromorphone).
- Requesting a lesser dose of the same medication IF
ORDERED.
- Requesting a less intrusive route of administration
if both routes are prescribed by the provider (PO <
IV).
06/28/24 16:33
Code Status As Directed
Resuscitation Status: Full Code
06/28/24 18:31
Acetaminophen [Tylenol] 1,000 mg PO Q6HPRN PRN
Dextrose 50%-Water [Dextrose 50% Syringe] 12.5 grams IV [id number] PRN
Glucagon [GlucaGen] 1 mg IM PRN PRN
Insulin Aspart High Resistance [Novolog Flexpen-High Resistance] See Protocol SC AC
Ipratropium/Albuterol Sulfate [Duoneb] 3 ml INH R Q4HPRN PRN
METFORMIN HCl [Glucophage] 500 mg PO BID@0800,1700
Rosuvastatin Calcium [Crestor] 10 mg PO QPM
06/28/24 18:31
Consult Cardiology [CARDIOLOGY CONSULT] Routine
Consulting Provider: Júnior Burgess
Was physician already notified: Yes
Reason for consult: Heart failure
Consult Visual Display Associate [Visual Display Associate Consult] Routine
Consulting Provider: Linda Pyle
Was physician already notified: Yes
Reason for consult: respiratory failure
Consult Pulmonary [PULMONARY CONSULT] Routine
Consulting Provider: Lazaro Alexander
Was physician already notified: Yes
Reason for consult: COPD exacerbation
Bedside Glucose Monitoring As Directed
Frequency: AC&HS
Additional Instructions:: Change to q6h if pt on TPN, tube feeding or not eating
06/28/24 20:00
Apixaban [Eliquis] 5 mg PO BID
Ipratropium/Albuterol Sulfate [Duoneb] 3 ml INH R QID
06/29/24 06:00
BMP [Basic Metabolic Panel] IN AM
Glycohemoglobin (HgbA1c) IN AM
06/29/24 08:00
Finasteride [Proscar] 5 mg PO DAILY
Furosemide [Lasix] 40 mg IV BID AT 0800,1600
MethylPREDNISolone PF [Solu-Medrol Pf] 40 mg IV Q12H
06/30/24 11:00
DC Protocol for Telemetry ONCE
Abnormal Lab Results
06/28/24
13:49
MCV 95.8 H fL
(80.0-94.0)
MCHC 31.3 L g/dL
(33.0-37.0)
RDW 15.5 H %
(11.5-14.5)
MPV 12.7 H fL
(7.4-10.4)
Absolute Neuts (auto) 7.6 H 10^3/uL
(1.4-6.5)
Absolute Lymphs (auto) 0.9 L 10^3/uL
(1.2-3.4)
Absolute Monos (auto) 0.7 H 10^3/uL
(0.1-0.6)
Neutrophils % 82.7 H %
(42.2-75.2)
Lymphocytes % 9.4 L %
(20.5-51.1)
VBG pH 7.30 L
(7.32-7.43)
VBG pCO2 66 H mmHg
(35-48)
VBG pO2 176 H mmHg
(30-50)
VBG HCO3 32.5 H mmol/L
(22-27)
Potassium 5.2 H mmol/L
(3.5-5.1)
Carbon Dioxide 31 H mmol/L
(22-30)
BUN 31 H mg/dl
(9-20)
Glucose 213 H mg/dl
(70-99)
06/28/24 13:49
06/28/24 13:49
Vital Signs
Initial and Last Documented VS:
Initial Vital Signs
Temp Pulse Pulse Ox
98.5 F 95 75
06/28/24 13:32 06/28/24 13:32 06/28/24 13:32
Last Documented Vital Signs
Temp Pulse Resp BP Pulse Ox
98.5 F 85 21 127/97 94
06/28/24 14:05 06/28/24 18:45 06/28/24 18:45 06/28/24 18:32 06/28/24 18:53
Sammylt;Corey Mustafa, - Last Filed: 06/28/24 15:45>
Orders/Labs/Results
Orders:
Orders
06/28/24 13:36
Albuterol Sulfate [Ventolin Nebules] 10 mg INH R NOW STA
Ipratropium Nebs [Atrovent Nebules] 1 mg INH R NOW STA
06/28/24 13:37
CR Chest Portable - 1 View Urgent
Comment:
Reason For Exam: SOB
Reason Study Needs to be Portable: Other
06/28/24 13:38
Magnesium Sulfate 2 Gram/50 ml [Magnesium Sulfate] 2 gram in 50 ml IV NOW
06/28/24 13:49
Alcohol Urgent
Complete Blood Count/With Diff Urgent
Comprehensive Metabolic Panel Urgent
NT-proBNP Urgent
Troponin I Urgent
Venous Blood Gas Urgent
%Oxygen/Room Air: 72
06/28/24 13:53
ECG [Electrocardiogram (*1)] Urgent
Reason for Study: Shortness of Breath
EKG- Treatment ONCE
06/28/24 14:20
COVID-19 Antigen Urgent
Influenza A+B Rapid Molecular Urgent
GERALDO Source: [facility]
Specimen Description:
MethylPREDNISolone PF [Solu-Medrol Pf] 60 mg IV NOW STA
06/28/24 14:54
Furosemide [Lasix] 40 mg IV ONCE ONE
06/28/24 15:04
Azithromycin 500 mg/250 ml [Zithromax Infusion] 500 mg in 250 ml IV NOW
06/28/24 16:06
Admit/Transfer Patient As Directed
Co-Sign Provider:
Level of Care: Inpatient admission
Assign to:: ICU
Physician / Group: Hospitalist
Diagnosis: Dyspnea
Reason for Hospitalization: .
Expected length of stay greater than two midnights?: Yes
ELOS- Estimated Length of Stay in days: 3
I certify the patient meets the requirements for IP care: Yes
PRN Pain Medication Management As Directed
May give lesser potent ordered pain med per pt: Yes
preference::
Protocol:: Medication orders for pain may be administered in a
manner that supports deferring to patient preference
when the pt is:
- Requesting an ordered lesser potent pain medication.
Least to most potent pain medications are defined
as: acetaminophen < NSAID < tramadol < opioids
(morphine, oxycodone, hydromorphone).
- Requesting a lesser dose of the same medication IF
ORDERED.
- Requesting a less intrusive route of administration
if both routes are prescribed by the provider (PO <
IV).
06/28/24 16:33
Code Status As Directed
Resuscitation Status: Full Code
06/28/24 18:31
Acetaminophen [Tylenol] 1,000 mg PO Q6HPRN PRN
Dextrose 50%-Water [Dextrose 50% Syringe] 12.5 grams IV [id number] PRN
Glucagon [GlucaGen] 1 mg IM PRN PRN
Insulin Aspart High Resistance [Novolog Flexpen-High Resistance] See Protocol SC AC
Ipratropium/Albuterol Sulfate [Duoneb] 3 ml INH R Q4HPRN PRN
METFORMIN HCl [Glucophage] 500 mg PO BID@0800,1700
Rosuvastatin Calcium [Crestor] 10 mg PO QPM
06/28/24 18:31
Consult Cardiology [CARDIOLOGY CONSULT] Routine
Consulting Provider: Júnior Burgess
Was physician already notified: Yes
Reason for consult: Heart failure
Consult Visual Display Associate [Visual Display Associate Consult] Routine
Consulting Provider: Linda Pyle
Was physician already notified: Yes
Reason for consult: respiratory failure
Consult Pulmonary [PULMONARY CONSULT] Routine
Consulting Provider: Lazaro Alexander
Was physician already notified: Yes
Reason for consult: COPD exacerbation
Bedside Glucose Monitoring As Directed
Frequency: AC&HS
Additional Instructions:: Change to q6h if pt on TPN, tube feeding or not eating
06/28/24 20:00
Apixaban [Eliquis] 5 mg PO BID
Ipratropium/Albuterol Sulfate [Duoneb] 3 ml INH R QID
06/29/24 06:00
BMP [Basic Metabolic Panel] IN AM
Glycohemoglobin (HgbA1c) IN AM
06/29/24 08:00
Finasteride [Proscar] 5 mg PO DAILY
Furosemide [Lasix] 40 mg IV BID AT 0800,1600
MethylPREDNISolone PF [Solu-Medrol Pf] 40 mg IV Q12H
06/30/24 11:00
DC Protocol for Telemetry ONCE
Abnormal Lab Results
06/28/24
13:49
MCV 95.8 H fL
(80.0-94.0)
MCHC 31.3 L g/dL
(33.0-37.0)
RDW 15.5 H %
(11.5-14.5)
MPV 12.7 H fL
(7.4-10.4)
Absolute Neuts (auto) 7.6 H 10^3/uL
(1.4-6.5)
Absolute Lymphs (auto) 0.9 L 10^3/uL
(1.2-3.4)
Absolute Monos (auto) 0.7 H 10^3/uL
(0.1-0.6)
Neutrophils % 82.7 H %
(42.2-75.2)
Lymphocytes % 9.4 L %
(20.5-51.1)
VBG pH 7.30 L
(7.32-7.43)
VBG pCO2 66 H mmHg
(35-48)
VBG pO2 176 H mmHg
(30-50)
VBG HCO3 32.5 H mmol/L
(22-27)
Potassium 5.2 H mmol/L
(3.5-5.1)
Carbon Dioxide 31 H mmol/L
(22-30)
BUN 31 H mg/dl
(9-20)
Glucose 213 H mg/dl
(70-99)
06/28/24 13:49
06/28/24 13:49
Vital Signs
Initial and Last Documented VS:
Initial Vital Signs
Temp Pulse Pulse Ox
98.5 F 95 75
06/28/24 13:32 06/28/24 13:32 06/28/24 13:32
Last Documented Vital Signs
Temp Pulse Resp BP Pulse Ox
98.5 F 85 21 127/97 94
06/28/24 14:05 06/28/24 18:45 06/28/24 18:45 06/28/24 18:32 06/28/24 18:53
<Gil Wilhelm PA-C - Last Filed: 06/28/24 18:57>
MDM/Problems Addressed
MDM/Problems Addressed:
73-year-old male with history of COPD presents in acute respiratory distress, likely mixed picture of COPD and CHF however I suspect hypervolemia and CHF is the most predominant etiology. He had worsening respiratory effort despite hour-long
nebulizer and nasal cannula oxygen thus was upgraded to BiPAP due to work of breathing with good improvement. Do not see any indication to treat for pneumonia however given underlying COPD will cover with IV azithromycin. Was given diuresis as
well as steroids due to the unclear likely multifactorial picture. Will be admitted to the intensive care unit for further management
<Gil Wilhelm PA-C - Last Filed: 06/28/24 18:57>
Comment
Comment:
EKG independently interpreted by me shows rate controlled atrial fibrillation with wide-complex/left bundle branch block, no ischemic changes
*Critical Care Note
Total Time (30-74mins, 75-104mins- exclusive of procedures): 45 minutes
comment:
Critical care time: 45 minutes
Critical care time was exclusive of: Separately billable procedures, treating other patients, and teaching time
Critical care was necessary to treat or prevent imminent or life-threatening deterioration of the following conditions: Respiratory failure
Critical care time spent personally by me on the following activities:
[x] Review of old charts
[x] Obtaining history from patient or surrogate
[x] Ordering and review of the laboratory studies
[x] Ordering and review of radiographic studies
[x] Ordering and performing treatments and interventions
[x] Patient patient's response to treatment
[x] Development of treatment plan with patient or surrogate
ED Attending Note
<Gil Wilhelm PA-C - Last Filed: 06/28/24 18:57>
-
Portions of this chart may have been created with voice recognition software.� Occasional wrong word or��sound alike� substitutions may have occurred due to the inherent limitations of voice recognition software.
<Corey Mustafa DO - Last Filed: 06/28/24 15:45>
ED Attending Note
Patient seen and examined by attending physician: Yes
I performed the substantive portion of visit, reviewed & personally made and approve the management plan that is documented in note by myself or AZUL.: Yes
ED Attending Note:
I agree with Chetan's note.
73-year-old male presents with increased work of breathing, shortness of breath. Patient potential breath of the past week. He was noted be hypoxic upon arrival.
General: Awake, Alert, Oriented X3. Moderate respiratory distress, increased work of breathing and audible wheezing
Vitals: Hypoxic, tachypneic
Head: Atraumatic
Eyes: Pupils equal, EOMI
Throat: Airway intact, no exudates
Neck: Trachea midline
Lungs: Poor aeration bilaterally, extensive wheezing
Heart: Regular rate, no murmurs
Neuro: Nonfocal
Skin: Warm, dry, no rash
Extremities: pulses equal b/l, no edema
Patient was started on a 1 hour neb treatment, given steroids and IV magnesium. He had minimal improvement but continued to have increased work of breathing. Labs showed a normal white count, acute on chronic respiratory acidosis. Chemistries
showed elevated glucose. Patient's chest x-ray was consistent with mild pulmonary edema. His BNP is also elevated at 11,000. I believe the patient is suffering from a combination of decompensation of heart failure as well as COPD exacerbation.
Patient placed on BiPAP. IV Lasix administered. Patient feeling a bit more comfortable with these interventions. He will be admitted to the hospitalist service.
Discharge Plan
Departure
Patient Disposition: Admit
Date of Disposition: 06/28/24
Time of Disposition: 15:58
Admit to: IMU
Presentation/result/management discussed w/ accepting MD/DO: Hospitalist
Discharge Problem:
Acute hypoxemic respiratory failure, Acute heart failure with preserved ejection fraction (HFpEF)
Interventions
Interventions:
*Risk Screen - Suicide Last Done: 06/28/24 18:52
*General Assessment Last Done: 06/28/24 14:05
*Neglect/Abuse Screening Last Done: 06/28/24 13:34
ED- Fall Risk Assessment Last Done: 06/28/24 14:05
*ED COVID-19 Vaccine History Last Done: 06/28/24 18:47
*Nursing Disposition Last Done: 06/28/24 18:12
ED- Cardiac Assessment Last Done: 06/28/24 14:05
ED- Pulmonary Assessment Last Done: 06/28/24 14:05
Discharge Date and Time
Discharge Date/Time: 06/28/24 18:19
[2024-06-28] MEDS: SOLU-MEDROL PF 60 MG IV (15:15)
[2024-06-28] MEDS: ZITHROMAX INFUSION 250 IV (15:15)
--- NOTE | 2024-06-28 15:15 | EDRN ---
respiratory currently at the pts bedside placing the pt on Bipap per the providers orders
[2024-06-28] MEDS: LASIX 40 MG IV (15:16)
--- NOTE | 2024-06-28 15:59 | EDRN ---
this RN noticed that the pt was starting to get out of bed, this RN assisted the pt with standing at the bedside to urinate per the providers approval, the pt was able to urinate in the urinal with no issues, the pt is tachypnic in the high 20's,
the pt is currently still on Bipap Sp02 96%, VS WNL, the pt is resting in stretcher in the lowest position, side rails up x2, call higgins within reach, HOB elevated, this RN re educated the pt on the use of the call higgins, will continue to monitor the
pt closely
--- NOTE | 2024-06-28 16:03 | HPS.HSE ---
Family Physician
-
Family Physician: NOT KNOW UNKNOWN - PT DOES
Chief Complaint
-
Shortness of breath and dyspnea for 1 week duration
History of Present Illness
This is 73 years old male who was brought in from home after experiencing respiratory distress. Patient is unable to provide history in details due to respiratory distress and BiPAP application on his face. Patient reported that he had cough and
shortness of breath for more than a week. He does not have home oxygen but uses nebulizer at home. He admits to continued smoking 5 to 6 cigarettes a day. No chest pain. No fever. Reportedly had chills. In the emergency room, his oxygen
saturation reported as 75% on room air. Venous PCO2 was 66 ( elevated). Patient has history of COPD. Chest radiography was consistent with pulmonary edema and elevated proBNP. Negative troponin.
Medical History
Past Medical History
Past Medical History: Reports Other ( BPH, essential hypertension, type 2 diabetes mellitus, hyperlipidemia, COPD, alcohol use disorder, tobacco dependence, history of left eye hemorrhage, history of traumatic brain injury, obesity, Atrial
Fibrillation)
Past Surgical History: Reports Other (No history of recent major surgery)
Social History
Unable to obtain full social history at this time due to: Patient Non-verbal
Tobacco: Smoker
Living: Alone
Family History
Family History: Not pertinent
Allergies / Home Medications
Allergies reflects when Allergies were last updated in [facility].
Home Medications with original date entered in [facility]
Allergy/Medication List:
Allergies
Allergy/AdvReac Type Severity Reaction Status Date / Time
cephalexin [From Keflex] Allergy Unknown Rash Verified 11/01/23 06:56
phenobarbital Allergy Unknown Rash Verified 11/01/23 06:56
Home Medications
metformin 500 mg tablet 500 mg PO BID@0800,1700 Diabetes 08/18/21
acetaminophen 325 mg tablet 650 mg (2 x 325 mg) PO Q6HPRN PRN mild pain #30 tabs 08/21/21
finasteride 5 mg tablet 5 mg PO DAILY #30 tabs 08/21/21
rosuvastatin 10 mg tablet 10 mg PO QPM #30 tabs 08/21/21
apixaban 5 mg tablet (Eliquis) 5 mg PO BID Blood Clot Prevention/Tx 11/01/23
fluticasone fur. 200 mcg-umeclid 62.5 mcg-vilant 25 mcg inhalat.powder (Trelegy Ellipta) 1 inh inhalation R DAILY Lung/Breathing Issues 11/01/23
cholecalciferol (vitamin D3) 25 mcg (1,000 unit) capsule (Vitamin D3) 25 mcg PO BID Supplement 11/03/23
zinc sulfate 50 mg zinc (220 mg) tablet 50 mg PO DAILY Supplement 11/03/23
sacubitril 24 mg-valsartan 26 mg tablet (Entresto) 1 tab PO BID 06/28/24
therapeutic multivitamin 1 tab PO DAILY 06/28/24
Review of Systems
-
History Source: Patient (But limited due to respiratory distress )
A 12 point ROS was completed and negative except as noted: Yes
Constitutional: Denies Fever
EENT: Denies Sore Throat
Respiratory: Reports Cough and Trouble Breathing
Cardiac: Denies Chest Pain
Abdomen/GI: Denies Abdominal Pain
: Denies Dysuria or Frequency
Musculoskeletal: Denies Joint Pain
Skin: Denies Itching
Neurological: Denies Numbness
Hematologic/Lymphatic: Denies Bruising
Psych: Denies Panic Disorder
Physical Exam
Vital Signs
Vital Signs
Temp Pulse Resp BP Pulse Ox
98.5 F 90 22 145/89 97
06/28/24 14:05 06/28/24 15:29 06/28/24 15:29 06/28/24 15:29 06/28/24 15:29
Physical Exam
General: Respiratory Distress
HEENT: Atraumatic and Other (Bipap on face, no deformities noted )
Respiratory: Wheezes and Rhonchi
Cardiac: S1/S2 and Tachycardia
GI: Soft and Non Tender
Genito-urinary: Clear Urine
Musculoskeletal: No Cyanosis
Skin: Warm; No Jaundice
Neuro: Alert, Oriented and Other (he followed simple commands. No tremors noted )
Psych: No Agitated
Laboratory Results
-
06/28/24 13:49
06/28/24 13:49
Laboratory Results
Total Bilirubin 0.6 mg/dl (0.2-1.3) 06/28/24 13:49
AST 32 U/L (17-59) 06/28/24 13:49
ALT 47 U/L (0-50) 06/28/24 13:49
Alkaline Phosphatase 60 U/L (38-126) 06/28/24 13:49
Troponin I 0.032 ng/ml 06/28/24 13:49
Impression/Plan
-
73 male admitted with respiratory distress
#Acute hypoxic and hypercapnic respiratory failure requiring BiPAP therapy
Patient seems in distress with limited airway both sides in addition to wheezes and rhonchi heard
No leukocytosis. No fever. Chest radiography consistent with pulmonary edema
Venous pCO2 66(elevated)
Continuous tobacco use/smoking cigarettes
Negative COVID status. negative influenza screen
-Admit the patient to high-level care/ICU
Continue with BiPAP therapy, adjust setting, repeat ABG as needed. If fails, might need intubation/mechanical ventilatory support
Start the patient on intravenous steroid
Start the patient on nebulizer treatment [id number] and as needed
Mucolytics as needed
Monitor response closely
Consult ICU doctor/pulmonary, appreciate input
# Hyperkalemia
Hold Entresto
Monitor tele. EKG no acute changes
Use of Lasix will help reduce K
repeat labs
#Acute diastolic CHF
BNP 16545
Received IV Lasix in the ED, monitor fluid status, daily weight
C/w IV Lasix BID
Echo unrevealing:�Normal left ventricular systolic function. EF 56% in 10/2023 . Diastolic function indeterminate due to atrial fibrillation.�
No chest pain, negative troponin
Consult cardiology
# Persistent Atrial fibrillation
Continue Eliquis
reactive tachycardia
Monitor rate, will use Cardizem gtt if needed
# Essential hypertension
# Hyperlipidemia
Resume home antihypertensives
Continue statin
# Diabetes
c/w metformin
Sliding scale, high scale
Expect high blood glucose due to steroid/ stress of acute illness
# Tobacco use
cessation advised
refused nicotine patch
# history of traumatic brain injury
# obesity
DVT ppx : Eliquis
Total time spent to see the patient, examine the patient on the floor, review data and lab results, discuss treatment plan with patient, his sister Linda ( over the phone), ICU doctor, ER doctor, nursing staff around 75 minutes
--- NOTE | 2024-06-28 18:10 | EDRN ---
this RN called verbal report to the receiving ICU nurse Hector BO
[2024-06-28 19:41] LABS: Glucose - Point of Care 143 mg/dl (70-99)
[2024-06-28] MEDS: DUONEB 3 ML INH (19:48)
[2024-06-28] MEDS: GLUCOPHAGE 500 MG PO (20:13)
[2024-06-28] MEDS: CRESTOR 10 MG PO (20:13)
[2024-06-28] MEDS: ELIQUIS 5 MG PO (20:13)
--- NOTE | 2024-06-28 20:53 | PTCARENOTE ---
ax3 orthopneic-I/E wheezes 4 liters nc- biap as needed- pt feels better after lasix/nebs/steroids. rings appropriately. afib controlled- htn improving
[2024-06-28 21:41] LABS: INR 1.35; PT 16.5 Sec (11.4-14.6)
--- NOTE | 2024-06-28 22:29 | PTCARENOTE ---
remains stable without distress on 4 liters- bipap on standby if pt work of breathing increased- afib controlled- ax3
[2024-06-28] MEDS: NOVOLOG FLEXPEN-HIGH RESISTANCE 2 UNITS SC (23:47)
[2024-06-28 23:55] LABS: Glucose - Point of Care 152 mg/dl (70-99)
[2024-06-29] VITALS (32 sets, daily range): BP systolic 128–171; BP diastolic 65–158; PULSE 3–100; O2SAT 93–95; BMI 33.4
--- NOTE | 2024-06-29 02:55 | PTCARENOTE ---
afib 60-70's- bp wnl afebrile- 4 liters nasal cannula- no distress-
[2024-06-29 03:38] LABS: APTT 34.2 Sec (23.4-35.0)
[2024-06-29 03:54] LABS: Blood Urea Nitrogen 27 mg/dl (9-20); Calcium 8.7 mg/dl (8.4-10.2); Carbon Dioxide 34 mmol/L (22-30); Chloride 100 mmol/L (98-107); Estimated Creatinine Clearance > 125 ml/min; Glucose 116 mg/dl (70-99); Magnesium 2.3 mg/dl (1.6-2.3); Potassium 5.3 mmol/L (3.5-5.1); Sodium 142 mmol/L (135-145); eGFR > 60.00
[2024-06-29 05:13] LABS: Glucose - Point of Care 110 mg/dl (70-99)
[2024-06-29] MEDS: NOVOLOG FLEXPEN-HIGH RESISTANCE 1 UNITS SC ×3 (05:14→17:26)
--- NOTE | 2024-06-29 05:50 | PTCARENOTE ---
weaned to 2 liters- pt remains with rhonchi/wheezing but breathing much better overall . - significant diuresis with weight loss overnight .see work list
[2024-06-29 06:20] LABS: Glucose - Point of Care 120 mg/dl (70-99)
--- NOTE | 2024-06-29 06:33 | W.PN.HOSP.TC ---
Today's Communication/Plan
-
# ABG was not done last evening
Will order one now if possible
He is on nasal O2 this morning
c/w IV Steroid, Nebulizer, IV Lasix
Potential transfer out of ICU today
Assessment / Plan
Assessment / Plan
Physical Exam
General: not in Respiratory Distress
HEENT: Atraumatic and nasal O2 noted this morning
Respiratory: more air bilaterally, less Wheezes and Rhonchi
Cardiac: S1/S2 and Tachycardia
GI: Soft and Non Tender
Genito-urinary: Clear Urine
Musculoskeletal: No Cyanosis
Skin: Warm; No Jaundice
Neuro: Alert, Oriented and Other (he followed simple commands. No tremors noted )
Psych: No Agitated
73 male admitted with respiratory distress
#Acute hypoxic and hypercapnic respiratory failure requiring BiPAP therapy
Combination of CHF / COPD exacerbation/ continued tobacco use.
Admitted to ICU over night
He is on nasal O2 this morning
I heard more air in his lungs
c/w Nebulizer, IV steroid, IV Lasix
Will request ABG, he did not get ABG last evening. Will be helpful to know baseline PCO2
Mucolytics as needed
Monitor response closely
Consult ICU doctor/pulmonary, appreciate input
# Hyperkalemia
Hold Entresto
Will give Lokelma
Monitor tele. EKG no acute changes
Use of Lasix will also help reduce K
#Acute diastolic CHF
BNP 81413
Daily weight: Lost 2 Kg
C/w IV Lasix BID
Echo 10/2023 :�Normal left ventricular systolic function. EF 56% in 10/2023 . Diastolic function indeterminate due to atrial fibrillation.�
No chest pain, negative troponin
Consulted cardiology
# Persistent Atrial fibrillation
Continue Eliquis
reactive tachycardia has resolved.
# Essential hypertension
# Hyperlipidemia
Resume home antihypertensives
Continue statin
# Diabetes
c/w metformin
Sliding scale, high scale
Expect high blood glucose due to steroid/ stress of acute illness
# Tobacco use
cessation advised
refused nicotine patch
# history of traumatic brain injury
# obesity
DVT ppx : Eliquis
Total time spent to see the patient, examine the patient on the floor, review data and lab results, discuss treatment plan with patient, nursing staff around 55 minutes
Anticipated Discharge: > 48 hours
Subjective/Interval History
-
Date of Service: June 29, 2024
Good improvement over night, off Bipap this morning
Pt feels better,
Objective Data
-
Labs:
Laboratory Results
06/28/24 06/29/24 06/29/24
21:24 00:42 03:14
PT 16.5 H
INR 1.35
APTT 34.2
HCO3 Cancelled
Sodium 142
Potassium 5.3 H
Chloride 100
Carbon Dioxide 34 H
BUN 27 H
Creatinine 0.7
Glucose 116 H
Calcium 8.7
Vital Signs:
Vital Signs
Temp Pulse Resp BP Pulse Ox
98.1 F 89 17 132/87 93
06/29/24 03:28 06/29/24 06:00 06/29/24 06:00 06/29/24 06:00 06/29/24 06:00
I&O
06/27/24 06/28/24 06/29/24
06:59 06:59 06:59
Intake Total 120 / 120
Output Total 1825 / 1825
Balance -1705 / -1705
[2024-06-29] MEDS: GLUCOPHAGE 500 MG PO ×2 (07:14→17:54)
[2024-06-29] MEDS: SOLU-MEDROL PF 40 MG IV (07:14)
[2024-06-29] MEDS: PROSCAR 5 MG PO (07:14)
[2024-06-29] MEDS: LASIX 40 MG IV ×2 (07:14→15:42)
[2024-06-29] MEDS: ELIQUIS 5 MG PO ×2 (07:14→20:33)
--- NOTE | 2024-06-29 07:14 | CON.INTV ---
Consultation
Consultation Request
Date/Time Consultation Requested: 06/28/24
Date/Time Consultation Performed: 06/29/24
Performing Provider: Edenilson
Reason for Consultation: SOB
Medical History
-
History of Present Illness:
Patient is a 73-year-old male with previous history of COPD, emphysema, current smoking presenting to ER with respiratory distress. On arrival to the ER, he had been noted to have O2 grover of 75% on room air. VBG obtained indicating pCO2 of 66.
He was placed on BiPAP and admitted to ICU for observation. Chest x-ray demonstrating signs consistent with heart failure as well, he has an elevated proBNP.
Still smoking 10/02-09/30 PPD. Last seen at [facility] 03/09/[address] Lal[address]
.
Past Medical History
Past Medical History: Other (see list below)
Social History
Tobacco: Smoker
Alcohol: None
Drug: None
Family History
Family History: Reviewed & Not Pertinent
Allergies / Home Medications
Allergies
Allergy/AdvReac Type Severity Reaction Status Date / Time
cephalexin [From Keflex] Allergy Unknown Rash Verified 11/01/23 06:56
phenobarbital Allergy Unknown Rash Verified 11/01/23 06:56
Home Medications
�Medication �Instructions �Recorded �Confirmed �Last Taken �Type
metformin 500 mg tablet 500 mg PO BID@0800,1700 Diabetes 08/18/21 06/28/24 06/28/24 History
acetaminophen 325 mg tablet 650 mg (2 x 325 mg) PO Q6HPRN PRN 08/21/21 06/28/24 Unknown Rx
mild pain #30 tabs
finasteride 5 mg tablet 5 mg PO DAILY #30 tabs 08/21/21 06/28/24 06/28/24 Rx
rosuvastatin 10 mg tablet 10 mg PO QPM #30 tabs 08/21/21 06/28/24 06/27/24 Rx
apixaban 5 mg tablet (Eliquis) 5 mg PO BID Blood Clot 11/01/23 06/28/24 06/28/24 History
Prevention/Tx
fluticasone fur. 200 mcg-umeclid 1 inh inhalation R DAILY 11/01/23 06/28/24 06/28/24 History
62.5 mcg-vilant 25 mcg Lung/Breathing Issues
inhalat.powder (Trelegy Ellipta)
cholecalciferol (vitamin D3) 25 25 mcg PO BID Supplement 11/03/23 06/28/24 06/28/24 History
mcg (1,000 unit) capsule (Vitamin
D3)
zinc sulfate 50 mg zinc (220 mg) 50 mg PO DAILY Supplement 11/03/23 06/28/24 06/28/24 History
tablet
sacubitril 24 mg-valsartan 26 mg 1 tab PO BID 06/28/24 06/28/24 06/28/24 History
tablet (Entresto)
therapeutic multivitamin 1 tab PO DAILY 06/28/24 06/28/24 06/28/24 History
Review of Systems
-
History Source: Patient
All other systems: Negative unless noted
Vitals / Labs / Diagnostic Testing
Vital Signs
Temp Pulse Resp BP Pulse Ox
98.1 F 89 17 132/87 93
06/29/24 03:28 06/29/24 06:00 06/29/24 06:00 06/29/24 06:00 06/29/24 06:00
Lab Data
06/28/24 13:49
06/29/24 03:14
Laboratory Results
06/28/24 06/29/24 06/29/24
21:24 00:42 03:14
PT 16.5 H
INR 1.35
APTT 34.2
pH Cancelled
pCO2 Cancelled
pO2 Cancelled
HCO3 Cancelled
O2 Delivery Level Cancelled
Microbiology
06/28/24 14:20 Nasal Swab Influenza Types A & B (SULAIMAN) - Final
Negative for Influenza A & B, NAAT
Negative results must be combined with clinical observations
and patient history.
Nucleic Acid Amplification test (NAAT)performed on the
[employer] NOW platform.
Diagnostic Testing:
Physical Exam
-
HEENT: Normocephalic, Anicteric, Moist Mucous Membranes and Other (poor dentition)
Cardiovascular: S1/S2 and Regular Rhythm
Respiratory: Non-Labored Respirations and Other (poor air movement, overall decreased)
GI: Soft, Non Distended and Non Tender
Neurology: Awake, Alert and No Motor Deficits
Skin: Warm and Dry
General: Comfortable and Other (NAD)
Assessment
-
Patient is a 73-year-old male with previous history of COPD, emphysema, current smoking presenting to ER with respiratory distress. On arrival to the ER, he had been noted to have O2 grover of 75% on room air. VBG obtained indicating pCO2 of 66.
He was placed on BiPAP and admitted to ICU for observation. Chest x-ray demonstrating signs consistent with heart failure as well, he has an elevated proBNP. Still smoking 1/4-1/2 PPD.
Acute on chronic HFpEF
Acute hypoxic and hypercarbic respiratory failure on BIPAP
Ongoing smoking
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
COPD/Emphysema on trelegy (not on O2)
HTN
Smoker since age 9, 1 ppd per day
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
Obesity, BMI 33
History of alcohol abuse
DJD
Visual field defect/Hemorrhage of left eye ([facility])
BPH
Type II diabetes
Prostate s/p turp 11/2016 / Transurethral ablation of prostate 08/19/21
Plan:
Initial sat 75% on RA, placed on BIPAP
Now on low supplemental o2
Eventual home O2 eval
Difficult situation as the patient lives in the retirement and he continues to smoke.
Suspected severe underlying OLD due to heavy h/o smoking since age 9.
Last seen at [facility] 03/09/[address] Lal[address]
[place] down in office showing severe obstruction, but not acceptable plateau
Prior CT chest showing emphysema as well
AE CHF noted, CXR showing edema, proBNP 02344
Diuresis per team
Last ECHO with preserved function
Follow daily weights/ IOs
Started on IV steroids for presumed AECOPD
Not wheezing on exam but there is poor air movement
Can start weaning steroids to daily, transition to prednisone 50mg with continued taper
Resume home inhalers
BIPAP continued, ABG showing acute on chronic retention
Would recommend home BIPAP arragement if able
CM consult
Smoking cessation encouraged.
Unclear how compliant pt would be with underlying TBI.
We discussed palliative care if he does not understand the severity of his lung condition and high risk for resp failure
PT/OT eval
Transfer patient to tele, we will follow
Diagnostic Data
Chest X-Ray: 06/28/24- 1. Mild cardiomegaly.
2. Mild pulmonary vascular congestion.
CT Scan: LDCT 12/04/23- There is a stable 7 mm calcified granuloma in the upper medial aspect of the right middle lobe (image 67); There is a stable 8 mm calcified granuloma in the upper lateral aspect of the right middle lobe (image 71); There is a
stable 6 mm calcified granuloma posterior right lower lobe (image 98)
2). Mild emphysematous changes
3). Atherosclerosis
Echo: 11/03/23- Mild concentric left ventricular hypertrophy. Normal left ventricular chamber size. Normal left ventricular systolic function. Left ventricular ejection fraction is 56% by Funez' s method. Diastolic function indeterminate due to
atrial fibrillation. Mildly dilated right atrium. Mildly dilated aortic root. 3.9 cm. Since echo 11/05/17, there is no significant change. LVH has improved from moderate to mild.
PFT's: 03/09/24- Did not plateau/not acceptable. FEV1 1.05L 30%, FVC 2.68L 55%, ratio 39. FEV1 1.0L 28%, TLC 65%, DLCO 44% (suspected severe obstruction, moderate restriction, moderate diffusion impairment)
Reports and relevant images were personally reviewed.
-----
Critical Care time 65 mins -- The patient is admitted for acute critical illness for the treatment of vital organ failure and/or prevention of further life-threatening conditions. Total care includes time spent in review of history, physical exam,
medications, hemodynamic/ventilator parameters, laboratory data, imaging and discussion with house staff, pharmacy, respiratory therapy, medical health researcher, and nursing.
[2024-06-29] MEDS: FLUSH (NSS) 2 FLUSH IV (07:15)
--- NOTE | 2024-06-29 07:32 | PTCARENOTE ---
Pt AAOX3. Pox: 94% 2LNC. Patient denies pain/SOB. Lungs Rhonchi to auscultation. A-fib on endo tech; HR 70-80s. HR irregular. IV Lasix/Solu-Medrol adm. See MAR. Plan of care ongoing.
[2024-06-29] MEDS: DUONEB 3 ML INH ×2 (07:51→14:08)
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
[2024-06-29 09:06] LABS: Glycohemoglobin (HgbA1c) 6.5 % (4.0-5.6)
[2024-06-29 09:45] LABS: Troponin I 0.019 ng/ml
[2024-06-29 09:49] LABS: B.E. 15.1 mmol/L; O2 Saturation % 95.7 % (94-98); PCO2 69 mmHg (35-48); PO2 64 mmHg (83-108); Potassium 5.1 mMOL/L (3.5-5.1); pH 7.41 (7.35-7.45)
[2024-06-29 09:52] LABS: HCO3 43.7 mmol/L (21-28)
--- NOTE | 2024-06-29 10:11 | PTCARENOTE ---
Recent ABG result shown to Dr. Pyle and TT's to Dr. Grace. No RX at this time.
[2024-06-29] MEDS: SPIRIVA RESPIMAT 2.5 MCG INH (11:18)
[2024-06-29 11:26] LABS: Glucose - Point of Care 119 mg/dl (70-99)
--- NOTE | 2024-06-29 11:27 | PTCARENOTE ---
Withe the Pt's permission an update was provided to Ankush (pt's landlord/bus person). He was asked to bring in cell phone/ticket printer.
[2024-06-29] MEDS: SYMBICORT 160/4.5 MCG INHALER INH (12:10)
--- NOTE | 2024-06-29 15:02 | PTCARENOTE ---
Patient in rapid A-fib on medical assisting instructor; HR 150s-160s while coughing after neb treatment. Spontaneously resolved. Pt asymptomatic. Dr. Pyle notified.
--- NOTE | 2024-06-29 15:26 | CM ---
Alert awake oriented patient who lives in [address] with 13 other people. Roommate drives and does grocery shopping for him. Home has 3 floors with 3 steps to enter. Bed room on first floor. He said he is independent in all activities of daily
living and no adaptive devices.He has oxygen on in hospital .Advanced directives copy given to pt.
[place] [facility] hx /No SNF hx
Pharmacy [facility]
PCP DR Vázquez
PLAN Will need PT OT input on dc plan
[2024-06-29] MEDS: FLUSH (NSS) 1 FLUSH IV (15:42)
--- NOTE | 2024-06-29 15:54 | PTCARENOTE ---
Pt assisted to the bed for ECHO, desaturated to 88%, face turned purple with increased WOB. Pulse ox 87-89%. Dr. Pyle notified, will notify RPT for Bipap. Lasix administered at this time.
--- NOTE | 2024-06-29 16:15 | CARDSERVDEF ---
Echocardiogram with Definity completed after protocol screening completed. Allergies verified.
Patent IV site: ___L AC__
IV site flushed with 0.9% NaCl pre and post administration.
Diluted bolus method utilized to enhance visualization of ventricular navas.
Total volume given: ___4_ mL
Patient tolerated all procedures well without complications.
[2024-06-29 17:11] LABS: Glucose - Point of Care 101 mg/dl (70-99)
[2024-06-29] MEDS: CRESTOR 10 MG PO (17:54)
[2024-06-29] MEDS: SYMBICORT 160/4.5 MCG INHALER 2 PUFF INH (19:32)
[2024-06-29] MEDS: VENTOLIN NEBULES 2.5 MG INH (19:32)
[2024-06-29] MEDS: ATIVAN 0.25 MG IV (23:22)
[2024-06-29] MEDS: NSS (PRESERVATIVE FREE) 0.125 ML IV (23:23)
--- NOTE | 2024-06-29 23:46 | PTCARENOTE ---
Pt trying to climb out of bed despite redirection. Toileting needs addressed. Pulling off Bipap several times. With exertion, pt turned blue and couldn't breathe. Got pt back to bed, Bipap mask back on. Ativan given as ordered. Pt resting
comfortably 96%. Will monitor closely.
[2024-06-30] VITALS (27 sets, daily range): BP systolic 101–151; BP diastolic 30–140; PULSE 3–97; BMI 32.9
[2024-06-30 04:33] LABS: Blood Urea Nitrogen 36 mg/dl (9-20); Calcium 9.2 mg/dl (8.4-10.2); Chloride 94 mmol/L (98-107); Estimated Creatinine Clearance 101 ml/min; Glucose 105 mg/dl (70-99); Potassium 4.6 mmol/L (3.5-5.1); Sodium 145 mmol/L (135-145); eGFR > 60.00
[2024-06-30 04:44] LABS: Carbon Dioxide 38 mmol/L (22-30)
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
[2024-06-30] MEDS: NOVOLOG FLEXPEN-HIGH RESISTANCE SC ×3 (07:12→12:11)
--- NOTE | 2024-06-30 07:30 | W.PN.PUL3 ---
Addendum entered and electronically signed by Linda Pyle DO 06/30/24 16:07:
Patient is a 73 year-old M with COPD/emphysema, LISETTE/OHS. They have had multiple ER and hospital readmissions with a chief complaint of shortness of breath and respiratory failure. The patient has a PaCO2 of 69 mmHg on 5 L of oxygen. The patient
is on oxygen continuously. The patient reports they get short of breath with minimal exertion. They also report diffuse joint pain and is very limited because of breathing issues. Due to the patient's comorbidities as noted above and
hypoventilation, the patient is at risk for worsening chronic respiratory failure. I have considered bilevel, bilevel ST and bilevel AVAPS therapy and they have all been ruled out due to the patient's worsening clinical condition. The patient now
requires a unique mode of ventilation not offered on less costly options. The patient requires a device that will not fail in the event of a power failure and is also portable for mobility within the home when needed. Due to the patient's
worsening condition, I am prescribing NIV therapy to decrease the chance of continued unexplained expensive medical encounters including physician office visits, emergency/urgent care treatment and hospital readmissions.
Original Note:
Today's Communication / Plan
-
Inconsistent with PAP at night, encouraged to wear when needed
CM consult for PAP home set up
IV diuresis per team
Transition IV steroids to PO likely tomorrow
PT/OT evals
Assessment
-
Patient is a 73-year-old male with previous history of COPD, emphysema, current smoking presenting to ER with respiratory distress. On arrival to the ER, he had been noted to have O2 grover of 75% on room air. VBG obtained indicating pCO2 of 66.
He was placed on BiPAP and admitted to ICU for observation. Chest x-ray demonstrating signs consistent with heart failure as well, he has an elevated proBNP. Still smoking 10/02-09/30 PPD.
Acute on chronic HFpEF
Acute hypoxic and hypercarbic respiratory failure on BIPAP
Ongoing smoking
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
COPD/Emphysema on trelegy (not on O2)
HTN
Smoker since age 9, 1 ppd per day
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
Obesity, BMI 33
History of alcohol abuse
DJD
Visual field defect/Hemorrhage of left eye ([facility])
BPH
Type II diabetes
Prostate s/p turp 11/2016 / Transurethral ablation of prostate 08/19/21
Plan:
Initial sat 75% on RA, placed on BIPAP
Now on low supplemental o2
Eventual home O2 eval
Difficult situation as the patient lives in the [facility] and he continues to smoke.
Suspected severe underlying OLD due to heavy h/o smoking since age 9.
Last seen at [facility] 03/09/[address] Lal[address]
Raffy down in office showing severe obstruction, but not acceptable plateau
Prior CT chest showing emphysema as well
AE CHF noted, CXR showing edema, proBNP [id number]
Diuresis per team
Last ECHO with preserved function
Follow daily weights/ IOs
Started on IV steroids for presumed AECOPD
Not wheezing on exam but there is poor air movement
Can start weaning steroids to daily, transition to prednisone 50mg with continued taper
Resume home inhalers
BIPAP continued, ABG showing acute on chronic retention
Would recommend home BIPAP arragement if able
CM consult
Smoking cessation encouraged.
Unclear how compliant pt would be with underlying TBI.
We discussed palliative care if he does not understand the severity of his lung condition and high risk for resp failure
PT/OT eval
Diagnostic Data
Chest X-Ray: 06/28/24- 1. Mild cardiomegaly.
2. Mild pulmonary vascular congestion.
CT Scan: LDCT 12/04/23- There is a stable 7 mm calcified granuloma in the upper medial aspect of the right middle lobe (image 67); There is a stable 8 mm calcified granuloma in the upper lateral aspect of the right middle lobe (image 71); There is a
stable 6 mm calcified granuloma posterior right lower lobe (image 98)
2). Mild emphysematous changes
3). Atherosclerosis
Echo: 11/03/23- Mild concentric left ventricular hypertrophy. Normal left ventricular chamber size. Normal left ventricular systolic function. Left ventricular ejection fraction is 56% by Funez' s method. Diastolic function indeterminate due to
atrial fibrillation. Mildly dilated right atrium. Mildly dilated aortic root. 3.9 cm. Since echo 11/05/17, there is no significant change. LVH has improved from moderate to mild.
PFT's: 03/09/24- Did not plateau/not acceptable. FEV1 1.05L 30%, FVC 2.68L 55%, ratio 39. FEV1 1.0L 28%, TLC 65%, DLCO 44% (suspected severe obstruction, moderate restriction, moderate diffusion impairment)
Reports and relevant images were personally reviewed.
-----
Total time spent on this encounter __51__ includes review of history, physical exam, medications, laboratory data, personal review of imaging, extensive review of outpatient records, discussion with care team and respiratory therapy.
Subjective Data
-
Date of Service:
Date of Service: June 30, 2024
Chief Complaint: Pulmonary Follow Up
Subjective:
remains on 5L NC, did not wear PAP at night
no new events ON
still with some mild WOB
Objective Data
Data Reviewed
Vital Signs / I&O / Oxygen:
Vital Signs
Temp Pulse Resp BP Pulse Ox
98.2 F 74 16 114/72 93
06/30/24 04:00 06/30/24 05:00 06/30/24 05:00 06/30/24 05:00 06/30/24 05:00
Intake and Output
06/29/24 06/30/24 07/01/24
06:59 06:59 06:59
Intake Total 120 / 120 360 / 360
Output Total 1825 / 1825 2750 / 2750
Balance -1705 / -1705 -2390 / -2390
SaO2 93
Nasal Cannula flow liters per 2
minute
Physical Exam
General: Respiratory Distress, Comfortable and Other (NAD)
HEENT: Normocephalic, Anicteric, Moist Mucous Membranes and Other (poor dentition)
Cardiovascular: S1-S2 and Regular Rhythm
Respiratory: Wheeze and Accessory Resp Muscle Use (mild, dyspneic with conversation)
GI: Soft, Distended (obese) and Non Tender
Neurology: Awake, Alert and No Motor Deficits
Skin: Warm and Dry
Labs/Micro/Reports
Lab Data
06/28/24 13:49
06/30/24 03:55
Laboratory Results
06/29/24 06/29/24
08:42 09:42
pH Cancelled 7.41
pCO2 Cancelled 69 H
pO2 Cancelled 64 L
HCO3 Cancelled 43.7 H*
O2 Delivery Level Cancelled Unknown
Microbiology
06/28/24 14:20 Nasal Swab Influenza Types A & B (SULAIMAN) - Final
Negative for Influenza A & B, NAAT
Negative results must be combined with clinical observations
and patient history.
Nucleic Acid Amplification test (NAAT)performed on the
[employer] platform.
[2024-06-30 08:02] LABS: Glucose - Point of Care 100 mg/dl (70-99)
--- NOTE | 2024-06-30 08:45 | PTCARENOTE ---
Received pt. @ change of shift. Pt. drowsy, awakens to tactile stimuli; oriented x3 but forgetful/impulsive; bed alarm active. A fib on monitor. SpO2 97% on BiPAP 12/5, 5L; BiPAP remains on for drowsiness @ this time. Auscultated scattered
rhonchi/exp wheeze throughout. + BS abd, round/obese. #[address] draining yellow urine. #20 L FA and #18 L AC patent, dressing c/d/i. Call higgins in reach.
[2024-06-30] MEDS: PROSCAR 5 MG PO (09:06)
[2024-06-30] MEDS: SOLU-MEDROL PF 40 MG IV (09:07)
[2024-06-30] MEDS: LASIX 40 MG IV ×2 (09:07→16:37)
[2024-06-30] MEDS: ELIQUIS 5 MG PO ×2 (09:07→20:03)
[2024-06-30] MEDS: GLUCOPHAGE 500 MG PO ×2 (09:07→16:37)
[2024-06-30] MEDS: SYMBICORT 160/4.5 MCG INHALER 2 PUFF INH ×2 (09:47→21:19)
[2024-06-30] MEDS: SPIRIVA RESPIMAT 2.5 MCG 2 PUFF INH (09:47)
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
--- NOTE | 2024-06-30 11:00 | PTCARENOTE ---
RT removed BiPAP and placed pt. on 5LNC @ approx 0930. Complete mouth care provided. Admin PO meds; no s/s of asp. Approx 1H s/p BiPAP removal, SpO2 borderline 88-89% and pt fell back asleep. RT notified and BiPAP reapplied @ 1045; tolerating
BiPAP. Safe environment maintained.
[2024-06-30 12:05] LABS: Glucose - Point of Care 120 mg/dl (70-99)
--- NOTE | 2024-06-30 12:52 | PTCARENOTE ---
Pt. more awake/alert, requesting for BiPAP to come off; RT notified and BiPAP removed @ approx 1245 and transitioned to 5LNC by R, tolerating NC @ this time. Assisted w ordering lunch, awaiting try. Bed alarm active. Call higgins in reach.
--- NOTE | 2024-06-30 16:05 | CM ---
CM following re: discharge planning.
Reviewed pt's chart, met with pt.
According to MD pt will need Bi-pap at home. CM placed an order for Bi-pap with [facility].
PT and OT evaluations noted - no recommendations for after care have been made yet. CM will follow with updated PT and OT evaluations.
D/C plan: home with VN and Bi-pap vs SNF.
CM will follow with discharge plan updates as hospitalization progresses
[2024-06-30 16:53] LABS: Glucose - Point of Care 178 mg/dl (70-99)
[2024-06-30] MEDS: NOVOLOG FLEXPEN-HIGH RESISTANCE 2 UNITS SC (18:11)
[2024-06-30] MEDS: CRESTOR 10 MG PO (18:11)
--- NOTE | 2024-06-30 18:16 | PTCARENOTE ---
pt. reassessed, no changes since previous assessment; remains on 5LNC. Bed alarm active. Call gisela abraham in reach.
--- NOTE | 2024-06-30 20:00 | PTCARENOTE ---
Received pt via handoff. Pt alert and oriented but forgets limitations. AFib on the monitor with slight edema in LE, palpable pulses bilaterally in UE and LE. Scattered rhonchi with expiratory wheeze on 5L NC w/ occasional non productive cough.
Hypoactive bowel sounds round and soft. Condom cath in place draining clear yellow urine. Moisture breakdown under folds of skin. Call higgins at bedside, will continue to monitor.
[2024-06-30 23:02] LABS: Glucose - Point of Care 133 mg/dl (70-99)
[2024-06-30] MEDS: NOVOLOG FLEXPEN 1 UNITS SC (23:05)
[2024-07-01] VITALS (9 sets, daily range): BP systolic 108–133; BP diastolic 64–84; PULSE 3–67; BMI 32.2
--- NOTE | 2024-07-01 00:06 | PTCARENOTE ---
All systems reassessed, pt remains 97% on 5L NC, BiPap switched to PRN per YINA Adler, will continue to monitor.
[2024-07-01 05:13] LABS: % Basophils 0.3 % (0-2); % Eosinophils 1.3 % (0-6); % Immature Granulocytes 0.4 % (0-0.5); % Lymphocytes 18.7 % (20.5-51.1); % Monocytes 9.2 % (1.7-9.3); % Neutrophils 70.1 % (42.2-75.2); Absolute Eosinophils 0.1 10^3/uL (0-0.7); Absolute Lymphocytes 1.8 10^3/uL (1.2-3.4); Absolute Monocytes 0.9 10^3/uL (0.1-0.6); Absolute Neutrophils 6.6 10^3/uL (1.4-6.5); Hematocrit 51.4 % (39.0-52.0); Hemoglobin 16.2 g/dL (13.0-18.0); Mean Corp Hgb Conc. 31.5 g/dL (33.0-37.0); Mean Corpuscular Hgb 29.9 pg (27.0-31.0); Mean Corpuscular Volume 94.8 fL (80.0-94.0); Mean Platelet Volume 12.1 fL (7.4-10.4); Nucleated Red Blood Cells % 0.2 % (-); Platelet Count 186 10^3/uL (130-400); Red Blood Cell Count 5.42 10^6/uL (4.70-6.10); White Blood Cell Count 9.4 10^3/uL (4.8-10.8)
[2024-07-01 05:47] LABS: Blood Urea Nitrogen 40 mg/dl (9-20); Calcium 9.3 mg/dl (8.4-10.2); Chloride 91 mmol/L (98-107); Estimated Creatinine Clearance 112 ml/min; Glucose 113 mg/dl (70-99); Magnesium 2.1 mg/dl (1.6-2.3); Potassium 4.6 mmol/L (3.5-5.1); Sodium 143 mmol/L (135-145); eGFR > 60.00
[2024-07-01 05:57] LABS: Carbon Dioxide 37 mmol/L (22-30)
--- NOTE | 2024-07-01 06:46 | W.PN.HOSP.TC ---
Today's Communication/Plan
-
Bowel regimen
Cardizem for heart rate
To reach out to sister about Bi pap
PT/OT
Assessment / Plan
Assessment / Plan
Physical Exam
General: not in Respiratory Distress
HEENT: Atraumatic and nasal O2 noted this morning
Respiratory: more air bilaterally, less Wheezes and Rhonchi
Cardiac: S1/S2 and Tachycardia
GI: Soft and Non Tender
Genito-urinary: Clear Urine
Musculoskeletal: No Cyanosis
Skin: Warm; No Jaundice
Neuro: Alert, Oriented and Other (he followed simple commands. No tremors noted )
Psych: No Agitated
73 male admitted with respiratory distress
#Acute on chronic hypoxic and hypercapnic respiratory failure requiring BiPAP therapy
Combination of CHF / COPD exacerbation/ continued tobacco use.
Admitted to ICU over night
He is on nasal O2 this morning
I heard more air in his lungs
c/w Nebulizer, IV steroid, IV Lasix
ABG is reviewed.
Mucolytics as needed
Monitor response closely
d/w Dr Pyle, will reach out to sister about Bi Pap
Consult ICU doctor/pulmonary, appreciate input
# Hyperkalemia
resolved.
#Acute diastolic CHF
BNP 37293
Daily weight: Lost 80-10 Kg
C/w IV Lasix BID, change to oral in next 24 hours
Echo 10/2023 :�Normal left ventricular systolic function. EF 56% in 10/2023 . Diastolic function indeterminate due to atrial fibrillation.�
No chest pain, negative troponin
Consulted cardiology
# Persistent Atrial fibrillation
Continue Eliquis
reactive tachycardia with burst of uncontrolled rate.
Will add Cardizem
# Essential hypertension
Monitor while starting Cardizem
# Hyperlipidemia
Continue statin
# Diabetes
c/w metformin
Sliding scale, high scale
Seems to be controlled with ISS and metformin
Might have high blood glucose due to steroid/ stress of acute illness
# Tobacco use
cessation advised
refused nicotine patch
# history of traumatic brain injury
# obesity
DVT ppx : Eliquis
# constipation, will do bowel regimen with MiraLAX and Dulcolax
Total time spent to see the patient, examine the patient on the floor, review data and lab results, discuss treatment plan with patient, nursing staff around 55 minutes
Anticipated Discharge: 24 - 48 hours
Subjective/Interval History
-
Date of Service: July 01, 2024
Denies sob or chest pain
Objective Data
-
Labs:
Laboratory Results
07/01/24
05:04
WBC 9.4
Hgb 16.2
Hct 51.4
Plt Count 186
Sodium 143
Potassium 4.6
Chloride 91 L
Carbon Dioxide 37 H
BUN 40 H
Creatinine 0.8
Glucose 113 H
Calcium 9.3
Vital Signs:
Vital Signs
Temp Pulse Resp BP Pulse Ox
98 F 48 14 115/70 96
07/01/24 05:07 07/01/24 06:15 07/01/24 06:15 07/01/24 04:01 07/01/24 06:15
I&O
06/29/24 06/30/24 07/01/24
06:59 06:59 06:59
Intake Total 120 / 120 360 / 360 240 / 240
Output Total 1825 / 1825 2750 / 2750 2275 / 2275
Balance -1705 / -1705 -2390 / -2390 -2034 / -2034
--- NOTE | 2024-07-01 07:23 | W.PN.PUL3 ---
Today's Communication / Plan
-
Increased O2 requirements
Remains on IV steroids/IV lasix
BIPAP continue nightly and PRN
If not improving, can consider GOC discussions
He remains full code
Assessment
-
Patient is a 73-year-old male with previous history of COPD, emphysema, current smoking presenting to ER with respiratory distress. On arrival to the ER, he had been noted to have O2 grover of 75% on room air. VBG obtained indicating pCO2 of 66.
He was placed on BiPAP and admitted to ICU for observation. Chest x-ray demonstrating signs consistent with heart failure as well, he has an elevated proBNP. Still smoking /-1/ PPD.
Acute on chronic HFpEF
Acute hypoxic and hypercarbic respiratory failure on BIPAP
Ongoing smoking
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
COPD/Emphysema on trelegy (not on O2)
HTN
Smoker since age 9, 1 ppd per day
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
Obesity, BMI 33
History of alcohol abuse
DJD
Visual field defect/Hemorrhage of left eye ([facility])
BPH
Type II diabetes
Prostate s/p turp 11/2016 / Transurethral ablation of prostate 08/19/21
Plan:
Initial sat 75% on RA, placed on BIPAP
Now on low supplemental o2
Eventual home O2 eval
Difficult situation as the patient lives in the retirement and he continues to smoke.
Suspected severe underlying OLD due to heavy h/o smoking since age 9.
Last seen at [facility] 03/09/[address] Lal[address]
Selmer down in office showing severe obstruction, but not acceptable plateau
Prior CT chest showing emphysema as well
AE CHF noted, CXR showing edema, proBNP [id number]
Diuresis per team
Last ECHO with preserved function
Follow daily weights/ IOs
Started on IV steroids for presumed AECOPD
Not wheezing on exam but there is poor air movement
Can start weaning steroids to daily, transition to prednisone 50mg with continued taper
Resume home inhalers
BIPAP continued, ABG showing acute on chronic retention
Would recommend home BIPAP arragement if able
CM consult
Smoking cessation encouraged.
Unclear how compliant pt would be with underlying TBI.
We discussed palliative care if he does not understand the severity of his lung condition and high risk for resp failure
He remains full code
If not making significant progress, may consider GOC discussions
PT/OT eval
Diagnostic Data
Chest X-Ray: 06/28/24- 1. Mild cardiomegaly.
2. Mild pulmonary vascular congestion.
CT Scan: LDCT 12/04/23- There is a stable 7 mm calcified granuloma in the upper medial aspect of the right middle lobe (image 67); There is a stable 8 mm calcified granuloma in the upper lateral aspect of the right middle lobe (image 71); There is a
stable 6 mm calcified granuloma posterior right lower lobe (image 98)
2). Mild emphysematous changes
3). Atherosclerosis
Echo: 11/03/23- Mild concentric left ventricular hypertrophy. Normal left ventricular chamber size. Normal left ventricular systolic function. Left ventricular ejection fraction is 56% by Funez' s method. Diastolic function indeterminate due to
atrial fibrillation. Mildly dilated right atrium. Mildly dilated aortic root. 3.9 cm. Since echo 11/05/17, there is no significant change. LVH has improved from moderate to mild.
PFT's: 03/09/24- Did not plateau/not acceptable. FEV1 1.05L 30%, FVC 2.68L 55%, ratio 39. FEV1 1.0L 28%, TLC 65%, DLCO 44% (suspected severe obstruction, moderate restriction, moderate diffusion impairment)
Reports and relevant images were personally reviewed.
-----
Total time spent on this encounter __52__ includes review of history, physical exam, medications, laboratory data, personal review of imaging, extensive review of outpatient records, discussion with care team and respiratory therapy.
Subjective Data
-
Date of Service:
Date of Service: July 01, 2024
Chief Complaint: Pulmonary Follow Up
Subjective:
Remains clinically unchanged
O2 increased to 6L
BIPAP not on last night
Objective Data
Data Reviewed
Vital Signs / I&O / Oxygen:
Vital Signs
Temp Pulse Resp BP Pulse Ox
98 F 48 14 115/70 96
07/01/24 05:07 07/01/24 06:15 07/01/24 06:15 07/01/24 04:01 07/01/24 06:15
Intake and Output
06/30/24 07/01/24 07/02/24
06:59 06:59 06:59
Intake Total 360 / 360 240 / 240
Output Total 2750 / 2750 2275 / 2275
Balance -2390 / -2390 -2035 / -5
SaO2 96
Nasal Cannula flow liters per 5
minute
Physical Exam
General: Respiratory Distress, Comfortable and Other (NAD)
HEENT: Normocephalic, Anicteric, Moist Mucous Membranes and Other (poor dentition)
Cardiovascular: S1-S2 and Regular Rhythm
Respiratory: Clear (overall decreased) and Accessory Resp Muscle Use (mild, dyspneic with conversation)
GI: Soft, Distended (obese) and Non Tender
Neurology: Awake, Alert and No Motor Deficits
Skin: Warm and Dry
Labs/Micro/Reports
Lab Data
07/01/24 05:04
07/01/24 05:04
Microbiology
06/28/24 14:20 Nasal Swab Influenza Types A & B (SULAIMAN) - Final
Negative for Influenza A & B, NAAT
Negative results must be combined with clinical observations
and patient history.
Nucleic Acid Amplification test (NAAT)performed on the
[employer] platform.
[2024-07-01] MEDS: LASIX 40 MG IV ×2 (07:44→16:02)
[2024-07-01] MEDS: SOLU-MEDROL PF 40 MG IV (07:44)
[2024-07-01] MEDS: PROSCAR 5 MG PO (07:45)
[2024-07-01] MEDS: GLUCOPHAGE 500 MG PO ×2 (07:45→16:02)
[2024-07-01] MEDS: ELIQUIS 5 MG PO ×2 (07:45→19:45)
[2024-07-01] MEDS: NOVOLOG FLEXPEN-HIGH RESISTANCE SC ×2 (07:48→11:41)
[2024-07-01 07:59] LABS: Glucose - Point of Care 104 mg/dl (70-99)
[2024-07-01] MEDS: ProAIR HFA INHALER 2 PUFF INH (08:05)
[2024-07-01] MEDS: SPIRIVA RESPIMAT 2.5 MCG 2 PUFF INH (08:06)
[2024-07-01] MEDS: SYMBICORT 160/4.5 MCG INHALER 2 PUFF INH ×2 (08:06→19:34)
--- NOTE | 2024-07-01 08:45 | PTCARENOTE ---
Received pt @ change of shift. AAOx3, forgetful @ x's; denies pain. Afib on monitor, bursts of uncontrolled w rate up in 130's; Dr. Grace made aware. SpO2 93% on 5LNC; no BiPAP needed overnight; NRB utilized for exertion. +BS, abd
soft/round/obese; tolerating diet. Constipated, Dr. Grace made aware and bowel reg added per orders. Inc bladder; #[address] draining yellow urine. #18 L AC and #20 L FA patent, dressing c/d/i. Pt. assisted x2 w RW into chair for breakfast @
0800. Tolerating chair position. Chair alarm active. Instructed on how to report care concerns and call higgins in reach.
[2024-07-01] MEDS: DULCOLAX 10 MG PO (11:12)
[2024-07-01] MEDS: MIRALAX 17 GRAMS PO (11:12)
[2024-07-01] MEDS: CARDIZEM 30 MG PO ×3 (11:12→23:06)
[2024-07-01 11:51] LABS: Glucose - Point of Care 117 mg/dl (70-99)
--- NOTE | 2024-07-01 12:09 | PTCARENOTE ---
Pt.'s O2 titrated up to 8LMF to keep SpO2 >88%. Pt. denies SOB; objective RODRIGUEZ noted; NRB applied for exertion. Instructed on coughing/deep breathing exercises, demonstrated understanding. Productive cough w thick/white/hurst sputum. Self performed
mouth care. Remains in chair; chair alarm active; call higgins in reach.
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
--- NOTE | 2024-07-01 15:54 | CM ---
CM following rte: discharge planning.
Reviewed pt's chart, met with pt.
Pt's clinical faxed to [facility] for Bi-pap order. Please follow up with [facility] liaison Molly on a script and Dr. mirza.
PT and OT evaluations noted - no recommendations for after care have been made yet. CM will follow with updated PT and OT evaluations.
D/C plan: home with VN and Bi-pap vs SNF.
CM will follow with discharge plan updates as hospitalization progresses
[2024-07-01 16:44] LABS: Glucose - Point of Care 155 mg/dl (70-99)
[2024-07-01] MEDS: NOVOLOG FLEXPEN-HIGH RESISTANCE 2 UNITS SC (17:41)
[2024-07-01] MEDS: CRESTOR 10 MG PO (17:41)
--- NOTE | 2024-07-01 18:33 | PTCARENOTE ---
Pt. assisted back to bed x2 w RW @ 1800; OOB x10H, tolerated activity. Weaned O2 to 6LNC, tolerating wean. Call gisela w in reach.
[2024-07-01 23:22] LABS: Glucose - Point of Care 195 mg/dl (70-99)
--- NOTE | 2024-07-01 23:28 | PTCARENOTE ---
HS BG 195, Qing Bains [employer] covering/made aware- [employer] said no additional coverage will be ordered at this time.
[2024-07-02] VITALS (10 sets, daily range): BP systolic 101–141; BP diastolic 66–76; PULSE 2–72; BMI 32.3
--- NOTE | 2024-07-02 01:04 | PTCARENOTE ---
All systems reassessed, no changed in status. Call higgins within reach, will continue monitor.
[2024-07-02 04:34] LABS: % Basophils 0.2 % (0-2); % Eosinophils 1.8 % (0-6); % Immature Granulocytes 0.3 % (0-0.5); % Lymphocytes 21.4 % (20.5-51.1); % Monocytes 9.2 % (1.7-9.3); % Neutrophils 67.1 % (42.2-75.2); Absolute Eosinophils 0.2 10^3/uL (0-0.7); Absolute Lymphocytes 1.9 10^3/uL (1.2-3.4); Absolute Monocytes 0.8 10^3/uL (0.1-0.6); Absolute Neutrophils 5.9 10^3/uL (1.4-6.5); Hematocrit 48.9 % (39.0-52.0); Hemoglobin 15.3 g/dL (13.0-18.0); Mean Corp Hgb Conc. 31.3 g/dL (33.0-37.0); Mean Corpuscular Hgb 28.9 pg (27.0-31.0); Mean Corpuscular Volume 92.3 fL (80.0-94.0); Mean Platelet Volume 12.1 fL (7.4-10.4); Nucleated Red Blood Cells % 0 % (-); Platelet Count 213 10^3/uL (130-400); White Blood Cell Count 8.8 10^3/uL (4.8-10.8)
--- NOTE | 2024-07-02 06:35 | W.PN.HOSP.TC ---
Addendum entered and electronically signed by Demario Grace MD 07/02/24 14:18:
Addendum
I d/w sister Linda and brother Sinan
They will get back to me about code status
They understood his clinical situation, all questions answered
Sister will check with his housing people if they take Bipap.
End
Original Note:
Today's Communication/Plan
-
Family meeting after 10 am today about prognosis, code status, medical condition, placement
Assessment / Plan
Assessment / Plan
Physical Exam
General: not in Respiratory Distress
HEENT: Atraumatic and nasal O2 noted this morning
Respiratory: more air bilaterally, less Wheezes and Rhonchi
Cardiac: S1/S2 and Tachycardia
GI: Soft and Non Tender
Genito-urinary: Clear Urine
Musculoskeletal: No Cyanosis
Skin: Warm; No Jaundice
Neuro: Alert, Oriented and Other (he followed simple commands. No tremors noted )
Psych: No Agitated
73 male admitted with respiratory distress
#Acute on chronic hypoxic and hypercapnic respiratory failure requiring BiPAP therapy
Combination of CHF / COPD exacerbation/ continued tobacco use.
Admitted to ICU, now IMU/ Tele level
He is on nasal O2
I heard more air in his lungs
c/w Nebulizer, IV steroid, IV Lasix
ABG is reviewed.
Mucolytics as needed
Monitor response closely
d/w Dr Pyle, will reach out to sister about Bi Pap
Consult ICU doctor/pulmonary, appreciate input
# Hyperkalemia
resolved.
#Acute diastolic CHF
BNP 78750
Daily weight: Lost 80-10 Kg
C/w IV Lasix BID, change to oral in next 24 hours
Echo 10/2023 :�Normal left ventricular systolic function. EF 56% in 10/2023 . Diastolic function indeterminate due to atrial fibrillation.�
No chest pain, negative troponin
Consulted cardiology
# Persistent Atrial fibrillation
Continue Eliquis
Reactive tachycardia with burst of uncontrolled rate in between.
c/w Cardizem
# Essential hypertension
Monitor while starting Cardizem
# Hyperlipidemia
Continue statin
# Diabetes
c/w metformin
Sliding scale, high scale
Seems to be controlled with ISS and metformin
Might have high blood glucose due to steroid/ stress of acute illness
# Tobacco use
cessation advised
refused nicotine patch
# history of traumatic brain injury
# obesity
DVT ppx : Eliquis
# constipation, c/w bowel regimen with MiraLAX and Dulcolax
Total time spent to see the patient, examine the patient on the floor, review data and lab results, discuss treatment plan with patient, nursing staff around 55 minutes
Anticipated Discharge: > 48 hours
Subjective/Interval History
-
Date of Service: July 02, 2024
Denies sob or chest pain
Objective Data
-
Labs:
Laboratory Results
07/02/24 07/02/24 07/02/24
03:53 05:06 06:04
WBC 8.8
Hgb 15.3
Hct 48.9
Plt Count 213
Sodium Cancelled Cancelled Pending
Potassium Cancelled Cancelled Pending
Chloride Cancelled Cancelled Pending
Carbon Dioxide Cancelled Cancelled Pending
BUN Cancelled Cancelled Pending
Creatinine Cancelled Cancelled Pending
Glucose Cancelled Cancelled Pending
Calcium Cancelled Cancelled Pending
Vital Signs:
Vital Signs
Temp Pulse Resp BP Pulse Ox
97.8 F 61 14 130/75 96
07/02/24 05:33 07/02/24 04:00 07/02/24 04:00 07/02/24 04:00 07/02/24 04:00
I&O
06/30/24 07/01/24 07/02/24
06:59 06:59 06:59
Intake Total 360 / 360 240 / 240 960 / 960
Output Total 2750 / 2750 2275 / 2275 1000 / 1000
Balance -2390 / -2390 -2035 / -2035 -40 / -40
[2024-07-02 06:43] LABS: Blood Urea Nitrogen 45 mg/dl (9-20); Calcium 8.6 mg/dl (8.4-10.2); Chloride 92 mmol/L (98-107); Estimated Creatinine Clearance 100 ml/min; Glucose 113 mg/dl (70-99); Potassium 4.2 mmol/L (3.5-5.1); Sodium 142 mmol/L (135-145); eGFR > 60.00
[2024-07-02 07:04] LABS: Carbon Dioxide 37 mmol/L (22-30)
--- NOTE | 2024-07-02 07:18 | W.PN.PUL3 ---
Today's Communication / Plan
-
Clinically not improving, now on higher O2 requirements
Continued on BIPAP nightly/PRN
Not making significant progress despite maximal medical treatment
GOC discussions warranted, planning today per team
He remains full code
Assessment
-
Patient is a 73-year-old male with previous history of COPD, emphysema, current smoking presenting to ER with respiratory distress. On arrival to the ER, he had been noted to have O2 grover of 75% on room air. VBG obtained indicating pCO2 of 66.
He was placed on BiPAP and admitted to ICU for observation. Chest x-ray demonstrating signs consistent with heart failure as well, he has an elevated proBNP. Still smoking 1/-1/2 PPD.
Acute on chronic HFpEF
Acute hypoxic and hypercarbic respiratory failure on BIPAP
Ongoing smoking
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
COPD/Emphysema on trelegy (not on O2)
HTN
Smoker since age 9, 1 ppd per day
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
Obesity, BMI 33
History of alcohol abuse
DJD
Visual field defect/Hemorrhage of left eye ([facility])
BPH
Type II diabetes
Prostate s/p turp 11/2016 / Transurethral ablation of prostate 08/19/21
Plan:
Initial sat 75% on RA, placed on BIPAP
Now on supplemental O2- increasing requirements, now on 10L
Eventual home O2 eval
Difficult situation as the patient lives in the long term and he continues to smoke.
Suspected severe underlying OLD due to heavy h/o smoking since age 9.
Last seen at [facility] 03/09/[address]
Raffy down in office showing severe obstruction, but not acceptable plateau
Prior CT chest showing emphysema as well
AE CHF noted, CXR showing edema, proBNP 12555
Diuresis per team
Last ECHO with preserved function
Follow daily weights/ IOs
Started on IV steroids for presumed AECOPD
Not wheezing on exam but there is poor air movement
Can start weaning steroids to daily, transition to prednisone 50mg with continued taper
Resume home inhalers
BIPAP continued, ABG showing acute on chronic retention
Would recommend home BIPAP arrangement if able
CM consult
Smoking cessation encouraged.
Unclear how compliant pt would be with underlying TBI.
We discussed palliative care if he does not understand the severity of his lung condition and high risk for resp failure
He remains full code
If not making significant progress, may consider GOC discussions
Planning for discussions today
PT/OT eval
Diagnostic Data
Chest X-Ray: 06/28/24- 1. Mild cardiomegaly.
2. Mild pulmonary vascular congestion.
CT Scan: LDCT 12/04/23- There is a stable 7 mm calcified granuloma in the upper medial aspect of the right middle lobe (image 67); There is a stable 8 mm calcified granuloma in the upper lateral aspect of the right middle lobe (image 71); There is a
stable 6 mm calcified granuloma posterior right lower lobe (image 98)
2). Mild emphysematous changes
3). Atherosclerosis
Echo: 11/03/23- Mild concentric left ventricular hypertrophy. Normal left ventricular chamber size. Normal left ventricular systolic function. Left ventricular ejection fraction is 56% by Funez' s method. Diastolic function indeterminate due to
atrial fibrillation. Mildly dilated right atrium. Mildly dilated aortic root. 3.9 cm. Since echo 11/05/17, there is no significant change. LVH has improved from moderate to mild.
PFT's: 03/09/24- Did not plateau/not acceptable. FEV1 1.05L 30%, FVC 2.68L 55%, ratio 39. FEV1 1.0L 28%, TLC 65%, DLCO 44% (suspected severe obstruction, moderate restriction, moderate diffusion impairment)
Reports and relevant images were personally reviewed.
-----
Total time spent on this encounter __52__ includes review of history, physical exam, medications, laboratory data, personal review of imaging, extensive review of outpatient records, discussion with care team and respiratory therapy.
Subjective Data
-
Date of Service:
Date of Service: July 02, 2024
Chief Complaint: Pulmonary Follow Up
Subjective:
Remains on 10L NC, BIPAP overnight
No new events/complaints
Objective Data
Data Reviewed
Vital Signs / I&O / Oxygen:
Vital Signs
Temp Pulse Resp BP Pulse Ox
97.8 F 61 14 130/75 96
07/02/24 07:11 07/02/24 04:00 07/02/24 04:00 07/02/24 04:00 07/02/24 04:00
Intake and Output
07/01/24 07/02/24 07/03/24
06:59 06:59 06:59
Intake Total 240 / 240 960 / 960
Output Total 2275 / 2275 1000 / 1000
Balance -2035 / -2035 -40 / -40
SaO2 96
Nasal Cannula flow liters per 5
minute
Physical Exam
General: Respiratory Distress, Comfortable and Other (NAD)
HEENT: Normocephalic, Anicteric, Moist Mucous Membranes and Other (poor dentition)
Cardiovascular: S1-S2 and Regular Rhythm
Respiratory: Clear (overall decreased) and Accessory Resp Muscle Use (mild, dyspneic with conversation)
GI: Soft, Distended (obese) and Non Tender
Neurology: Awake, Alert and No Motor Deficits
Skin: Warm and Dry
Labs/Micro/Reports
Lab Data
07/02/24 03:53
07/02/24 06:04
[2024-07-02] MEDS: SPIRIVA RESPIMAT 2.5 MCG 2 PUFF INH (07:28)
[2024-07-02] MEDS: SYMBICORT 160/4.5 MCG INHALER 2 PUFF INH ×2 (07:29→19:56)
[2024-07-02 08:16] LABS: Glucose - Point of Care 121 mg/dl (70-99)
[2024-07-02] MEDS: NOVOLOG FLEXPEN-HIGH RESISTANCE SC (08:43)
[2024-07-02] MEDS: GLUCOPHAGE 500 MG PO ×2 (08:47→17:23)
[2024-07-02] MEDS: MIRALAX 17 GRAMS PO (08:47)
[2024-07-02] MEDS: PROSCAR 5 MG PO (08:47)
[2024-07-02] MEDS: LASIX 40 MG IV (08:48)
[2024-07-02] MEDS: SOLU-MEDROL PF 40 MG IV (08:48)
[2024-07-02] MEDS: ELIQUIS 5 MG PO ×2 (08:48→21:10)
[2024-07-02] MEDS: CARDIZEM 30 MG PO ×4 (08:48→21:10)
--- NOTE | 2024-07-02 11:04 | CM ---
Per Press Operator plan for goals of care meeting with physician and family member today. CM will continue to follow for discharge planning needs.
Plan; pending physician assessment/family meeting
[2024-07-02 11:31] LABS: Glucose - Point of Care 151 mg/dl (70-99)
[2024-07-02] MEDS: NOVOLOG FLEXPEN-HIGH RESISTANCE 2 UNITS SC ×2 (12:32→17:26)
--- NOTE | 2024-07-02 13:00 | PTCARENOTE ---
RN went into room after MD came out to RN and said patient looked SOB. RN went in to assess patient and pt's midflow had been off nose, family and patient did not know for how long, and he was in tripod position. RN placed midflow back on patient
correctly and after several minutes he endorsed feeling more comfortable. He was able to sit up straight in chair, respiratory rate 20/min. Pt felt like he did not need bipap at this time.
--- NOTE | 2024-07-02 13:39 | PTCARENOTE ---
Patient transported via wheelchair by RN to [facility]. Receiving RN given report over the phone. Pt insulin pen and Desenex transported with patient to new room. Pt's family is aware of room change.
--- NOTE | 2024-07-02 14:25 | PTCARENOTE ---
RT notified of MD wanting patient placed on BiPAP. RN called receiving [facility] RN to notify them of plan as well.
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
[2024-07-02 16:28] LABS: Glucose - Point of Care 157 mg/dl (70-99)
[2024-07-02] MEDS: CRESTOR 10 MG PO (17:23)
[2024-07-02] MEDS: LASIX IV (18:10)
[2024-07-02 21:51] LABS: Glucose - Point of Care 76 mg/dl (70-99)
[2024-07-03] VITALS (9 sets, daily range): BP systolic 96–128; BP diastolic 58–74; PULSE 2–84; O2SAT 94
[2024-07-03 07:59] LABS: Glucose - Point of Care 117 mg/dl (70-99)
[2024-07-03] MEDS: SPIRIVA RESPIMAT 2.5 MCG 2 PUFF INH (08:08)
[2024-07-03] MEDS: SYMBICORT 160/4.5 MCG INHALER 2 PUFF INH ×2 (08:08→19:57)
[2024-07-03] MEDS: ProAIR HFA INHALER 2 PUFF INH (08:12)
[2024-07-03] MEDS: MIRALAX 17 GRAMS PO (08:37)
[2024-07-03] MEDS: PROSCAR 5 MG PO (08:37)
[2024-07-03] MEDS: SOLU-MEDROL PF 40 MG IV (08:37)
[2024-07-03] MEDS: GLUCOPHAGE 500 MG PO ×2 (08:37→18:00)
[2024-07-03] MEDS: ELIQUIS 5 MG PO ×2 (08:37→20:21)
[2024-07-03] MEDS: CARDIZEM CD 180 MG PO (08:37)
[2024-07-03] MEDS: LASIX 40 MG IV (08:41)
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
[2024-07-03] MEDS: NOVOLOG FLEXPEN-HIGH RESISTANCE 1 UNITS SC ×2 (08:49→12:24)
[2024-07-03 11:57] LABS: Glucose - Point of Care 148 mg/dl (70-99)
--- NOTE | 2024-07-03 12:42 | W.PN.PUL3 ---
Today's Communication / Plan
-
Remains on 7L NC, PAP at night
PO prednisone taper
Diuresis per team
Discharge planning to SNF eventually but he requires significant O2
GOC discussions with family
Assessment
-
Patient is a 73-year-old male with previous history of COPD, emphysema, current smoking presenting to ER with respiratory distress. On arrival to the ER, he had been noted to have O2 grover of 75% on room air. VBG obtained indicating pCO2 of 66.
He was placed on BiPAP and admitted to ICU for observation. Chest x-ray demonstrating signs consistent with heart failure as well, he has an elevated proBNP. Still smoking /-1/2 PPD.
Acute on chronic HFpEF
Acute hypoxic and hypercarbic respiratory failure on BIPAP
Ongoing smoking
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
COPD/Emphysema on trelegy (not on O2)
HTN
Smoker since age 9, 1 ppd per day
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
Obesity, BMI 33
History of alcohol abuse
DJD
Visual field defect/Hemorrhage of left eye ([facility])
BPH
Type II diabetes
Prostate s/p turp 11/2016 / Transurethral ablation of prostate 08/19/21
Plan:
Initial sat 75% on RA, placed on BIPAP
Now on supplemental O2- remains on 7L
Eventual home O2 eval
Difficult situation as the patient lives in the senior living and he continues to smoke.
Suspected severe underlying OLD due to heavy h/o smoking since age 9.
Last seen at [facility] 03/09/[address]
Raffy down in office showing severe obstruction, but not acceptable plateau
Prior CT chest showing emphysema as well
AE CHF noted, CXR showing edema, proBNP 66075
Diuresis per team
Last ECHO with preserved function
Follow daily weights/ IOs
Started on IV steroids for presumed AECOPD, transitioned to PO prednisone
Not wheezing on exam but there is poor air movement
Resume home inhalers
BIPAP continued, ABG showing acute on chronic retention
Would recommend home BIPAP arrangement if able
CM consult for home set up
Smoking cessation encouraged.
Unclear how compliant pt would be with underlying TBI.
We discussed palliative care if he does not understand the severity of his lung condition and high risk for resp failure
He remains full code
If not making significant progress, may consider GOC discussions
PT/OT eval
Discharge planning to SNF
Diagnostic Data
Chest X-Ray: 06/28/24- 1. Mild cardiomegaly.
2. Mild pulmonary vascular congestion.
CT Scan: LDCT 12/04/23- There is a stable 7 mm calcified granuloma in the upper medial aspect of the right middle lobe (image 67); There is a stable 8 mm calcified granuloma in the upper lateral aspect of the right middle lobe (image 71); There is a
stable 6 mm calcified granuloma posterior right lower lobe (image 98)
2). Mild emphysematous changes
3). Atherosclerosis
Echo: 11/03/23- Mild concentric left ventricular hypertrophy. Normal left ventricular chamber size. Normal left ventricular systolic function. Left ventricular ejection fraction is 56% by Funez' s method. Diastolic function indeterminate due to
atrial fibrillation. Mildly dilated right atrium. Mildly dilated aortic root. 3.9 cm. Since echo 11/05/17, there is no significant change. LVH has improved from moderate to mild.
PFT's: 03/09/24- Did not plateau/not acceptable. FEV1 1.05L 30%, FVC 2.68L 55%, ratio 39. FEV1 1.0L 28%, TLC 65%, DLCO 44% (suspected severe obstruction, moderate restriction, moderate diffusion impairment)
Reports and relevant images were personally reviewed.
-----
Total time spent on this encounter __51__ includes review of history, physical exam, medications, laboratory data, personal review of imaging, extensive review of outpatient records, discussion with care team and respiratory therapy.
Subjective Data
-
Date of Service:
Date of Service: July 03, 2024
Chief Complaint: Pulmonary Follow Up
Subjective:
no events ON, sleeping on my arrival
remains on 7L midflow
PAP at night
no new complaints
Objective Data
Data Reviewed
Vital Signs / I&O / Oxygen:
Vital Signs
Temp Pulse Resp BP Pulse Ox
97.6 F 66 20 96/58 94
07/03/24 11:22 07/03/24 11:22 07/03/24 11:22 07/03/24 11:22 07/03/24 11:22
Intake and Output
07/02/24 07/03/24 07/04/24
06:59 06:59 06:59
Intake Total 960 / 960 960 / 960 240 / 240
Output Total 1000 / 1000 1100 / 1100 1150 / 1150
Balance -40 / -40 -140 / -140 -910 / -910
SaO2 94
Nasal Cannula flow liters per 7
minute
Physical Exam
General: Respiratory Distress, Comfortable and Other (NAD)
HEENT: Normocephalic, Anicteric, Moist Mucous Membranes and Other (poor dentition)
Cardiovascular: S1-S2 and Regular Rhythm
Respiratory: Clear (overall decreased, poor air movement) and Accessory Resp Muscle Use (mild, dyspneic with conversation)
GI: Soft, Distended (obese) and Non Tender
Neurology: Awake, Alert and No Motor Deficits
Skin: Warm and Dry
Labs/Micro/Reports
Lab Data
07/02/24 03:53
07/02/24 06:04
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
[2024-07-03 16:24] LABS: Glucose - Point of Care 155 mg/dl (70-99)
[2024-07-03] MEDS: NOVOLOG FLEXPEN-HIGH RESISTANCE 2 UNITS SC (17:59)
[2024-07-03] MEDS: CRESTOR 10 MG PO (18:00)
[2024-07-03 21:36] LABS: Glucose - Point of Care 128 mg/dl (70-99)
[2024-07-04] VITALS (8 sets, daily range): BP systolic 130–152; BP diastolic 62–88; PULSE 2; BMI 32.1
[2024-07-04 07:34] LABS: Glucose - Point of Care 122 mg/dl (70-99)
[2024-07-04] MEDS: ProAIR HFA INHALER 2 PUFF INH (07:45)
[2024-07-04] MEDS: SPIRIVA RESPIMAT 2.5 MCG 2 PUFF INH (07:45)
[2024-07-04] MEDS: SYMBICORT 160/4.5 MCG INHALER 2 PUFF INH ×2 (07:45→19:45)
[2024-07-04 07:46] LABS: Hematocrit 48.3 % (39.0-52.0); Hemoglobin 15.4 g/dL (13.0-18.0); Mean Corp Hgb Conc. 31.9 g/dL (33.0-37.0); Mean Corpuscular Hgb 29.6 pg (27.0-31.0); Mean Corpuscular Volume 92.9 fL (80.0-94.0); Mean Platelet Volume 12.1 fL (7.4-10.4); Platelet Count 191 10^3/uL (130-400); White Blood Cell Count 11.2 10^3/uL (4.8-10.8)
[2024-07-04] MEDS: CARDIZEM CD 180 MG PO (08:09)
[2024-07-04] MEDS: NOVOLOG FLEXPEN-HIGH RESISTANCE 1 UNITS SC ×2 (08:09→12:32)
[2024-07-04] MEDS: GLUCOPHAGE 500 MG PO ×2 (08:10→17:48)
[2024-07-04] MEDS: LASIX 60 MG PO (08:10)
[2024-07-04] MEDS: MIRALAX 17 GRAMS PO (08:10)
[2024-07-04] MEDS: PROSCAR 5 MG PO (08:10)
[2024-07-04] MEDS: ELIQUIS 5 MG PO ×2 (08:10→20:15)
[2024-07-04] MEDS: DELTASONE 40 MG PO (08:10)
[2024-07-04 08:23] LABS: Blood Urea Nitrogen 41 mg/dl (9-20); Calcium 9.6 mg/dl (8.4-10.2); Chloride 90 mmol/L (98-107); Estimated Creatinine Clearance 99 ml/min; Glucose 108 mg/dl (70-99); Potassium 5.5 mmol/L (3.5-5.1); Sodium 140 mmol/L (135-145); eGFR > 60.00
[2024-07-04 08:30] LABS: Carbon Dioxide 39 mmol/L (22-30)
--- NOTE | 2024-07-04 10:09 | W.PN.HOSP.TC ---
Today's Communication/Plan
-
DC planning
Taper prednisone
Lokelma
Add Lantus
Will need SNF
Assessment / Plan
Assessment / Plan
Physical Exam
General: not in Respiratory Distress
HEENT: Atraumatic and nasal O2 noted this morning
Respiratory: more air bilaterally, less Wheezes and Rhonchi
Cardiac: S1/S2 and no Tachycardia
GI: Soft and Non Tender
Genito-urinary: Clear Urine
Musculoskeletal: No Cyanosis
Skin: Warm; No Jaundice
Neuro: Alert, Oriented and Other (he followed simple commands. No tremors noted )
Psych: No Agitated
73 male admitted with respiratory distress
#Acute on chronic hypoxic and hypercapnic respiratory failure requiring BiPAP therapy
Combination of CHF / COPD exacerbation/ continued tobacco use.
Admitted to ICU, now Tele level
He is on nasal O2 with nightly and PRN Bipap
c/w Nebulizer
s/p IV steroid, IV Lasix, changed to oral Lasix and prednisone
ABG is reviewed.
Mucolytics as needed
Consulted ICU doctor/pulmonary, appreciate input
# Hyperkalemia
resolved.
#Acute diastolic CHF
BNP 53563
Daily weight: Lost 80-10 Kg
C/w IV Lasix BID, change to oral 60 mg QD staring 07/04
Echo 10/2023 :�Normal left ventricular systolic function. EF 56% in 10/2023 . Diastolic function indeterminate due to atrial fibrillation.�
No chest pain, negative troponin
Consulted cardiology
# Hyperkalemia, give Lokelma
# Persistent Atrial fibrillation
Continue Eliquis
Reactive tachycardia with burst of uncontrolled rate in between.
c/w Cardizem, changed to long acting Cardizem
# Essential hypertension
Stable
No hypotension noted
# Hyperlipidemia
Continue statin
# Diabetes
c/w metformin
s/p sliding scale, high scale
Seems to be controlled with ISS and metformin
Will add long acting Lantus, likely will dd on Metformin and Lantus
He did not uncontrolled high blood glucose due to steroid/ stress of acute illness
# Tobacco use
cessation advised
refused nicotine patch
# history of traumatic brain injury
# obesity
DVT ppx : Eliquis
# constipation, still No BM
c/w bowel regimen with MiraLAX and Dulcolax
Total time spent to see the patient, examine the patient on the floor, review data and lab results, discuss treatment plan with patient, sister, nursing staff around 55 minutes
Anticipated Discharge: 24 - 48 hours
Subjective/Interval History
-
Date of Service: July 04, 2024
No sob
No chest pain
No fevers
Objective Data
-
Labs:
Laboratory Results
07/04/24
06:47
WBC 11.2 H
Hgb 15.4
Hct 48.3
Plt Count 191
Sodium 140
Potassium 5.5 H D
Chloride 90 L
Carbon Dioxide 39 H
BUN 41 H
Creatinine 0.9
Glucose 108 H
Calcium 9.6
Vital Signs:
Vital Signs
Temp Pulse Resp BP Pulse Ox
97.2 F 84 18 136/72 91
07/04/24 07:11 07/04/24 07:50 07/04/24 07:50 07/04/24 07:11 07/04/24 07:52
I&O
07/03/24 07/04/24 07/05/24
06:59 06:59 06:59
Intake Total 960 / 960 720 / 720
Output Total 1100 / 1100 3225 / 3225
Balance -140 / -140 -2505 / -2505
[2024-07-04 11:47] LABS: Glucose - Point of Care 130 mg/dl (70-99)
[2024-07-04] MEDS: LOKELMA 10 GRAM PO (12:32)
--- NOTE | 2024-07-04 13:40 | W.PN.PUL3 ---
Today's Communication / Plan
-
O2 remains on 6L, could not wean lower
PAP continued at night
Prednisone taper
Discharge to SNF per team
Assessment
-
Patient is a 73-year-old male with previous history of COPD, emphysema, current smoking presenting to ER with respiratory distress. On arrival to the ER, he had been noted to have O2 grover of 75% on room air. VBG obtained indicating pCO2 of 66.
He was placed on BiPAP and admitted to ICU for observation. Chest x-ray demonstrating signs consistent with heart failure as well, he has an elevated proBNP. Still smoking 1/-1/2 PPD.
Acute on chronic HFpEF
Acute hypoxic and hypercarbic respiratory failure on BIPAP
Ongoing smoking
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
COPD/Emphysema on trelegy (not on O2)
HTN
Smoker since age 9, 1 ppd per day
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
Obesity, BMI 33
History of alcohol abuse
DJD
Visual field defect/Hemorrhage of left eye ([facility])
BPH
Type II diabetes
Prostate s/p turp 11/2016 / Transurethral ablation of prostate 08/19/21
Plan:
Initial sat 75% on RA, placed on BIPAP
Now on supplemental O2- remains on 6L
Eventual home O2 eval
Difficult situation as the patient lives in the nursing home and he continues to smoke.
Suspected severe underlying OLD due to heavy h/o smoking since age 9.
Last seen at [facility] 03/09/[address] Lal[address]
[place] down in office showing severe obstruction, but not acceptable plateau
Prior CT chest showing emphysema as well
AE CHF noted, CXR showing edema, proBNP [id number]
Diuresis per team
Last ECHO with preserved function
Follow daily weights/ IOs
Started on IV steroids for presumed AECOPD, transitioned to PO prednisone
Not wheezing on exam but there is poor air movement
Resume home inhalers
BIPAP continued, ABG showing acute on chronic retention
Would recommend home BIPAP arrangement if able
CM consult for home set up
Smoking cessation encouraged.
Unclear how compliant pt would be with underlying TBI.
We discussed palliative care if he does not understand the severity of his lung condition and high risk for resp failure
He remains full code
If not making significant progress, may consider GOC discussions
PT/OT eval
Discharge planning to SNF
Diagnostic Data
Chest X-Ray: 06/28/24- 1. Mild cardiomegaly.
2. Mild pulmonary vascular congestion.
CT Scan: LDCT 12/04/23- There is a stable 7 mm calcified granuloma in the upper medial aspect of the right middle lobe (image 67); There is a stable 8 mm calcified granuloma in the upper lateral aspect of the right middle lobe (image 71); There is a
stable 6 mm calcified granuloma posterior right lower lobe (image 98)
2). Mild emphysematous changes
3). Atherosclerosis
Echo: 11/03/23- Mild concentric left ventricular hypertrophy. Normal left ventricular chamber size. Normal left ventricular systolic function. Left ventricular ejection fraction is 56% by Funez' s method. Diastolic function indeterminate due to
atrial fibrillation. Mildly dilated right atrium. Mildly dilated aortic root. 3.9 cm. Since echo 11/05/17, there is no significant change. LVH has improved from moderate to mild.
PFT's: 03/09/24- Did not plateau/not acceptable. FEV1 1.05L 30%, FVC 2.68L 55%, ratio 39. FEV1 1.0L 28%, TLC 65%, DLCO 44% (suspected severe obstruction, moderate restriction, moderate diffusion impairment)
Reports and relevant images were personally reviewed.
-----
Total time spent on this encounter __35__ includes review of history, physical exam, medications, laboratory data, personal review of imaging, extensive review of outpatient records, discussion with care team and respiratory therapy.
Subjective Data
-
Date of Service:
Date of Service: July 04, 2024
Chief Complaint: Pulmonary Follow Up
Subjective:
Remains unchanged
Objective Data
Data Reviewed
Vital Signs / I&O / Oxygen:
Vital Signs
Temp Pulse Resp BP Pulse Ox
98.6 F 77 20 135/62 90
07/04/24 11:34 07/04/24 11:34 07/04/24 11:34 07/04/24 11:34 07/04/24 11:34
Intake and Output
07/03/24 07/04/24 07/05/24
06:59 06:59 06:59
Intake Total 960 / 960 720 / 720
Output Total 1100 / 1100 3225 / 3225
Balance -140 / -140 -2505 / -2505
SaO2 90
Nasal Cannula flow liters per 7
minute
Physical Exam
General: Respiratory Distress, Comfortable and Other (NAD)
HEENT: Normocephalic, Anicteric, Moist Mucous Membranes and Other (poor dentition)
Cardiovascular: S1-S2 and Regular Rhythm
Respiratory: Clear (overall decreased, poor air movement) and Accessory Resp Muscle Use (mild, dyspneic with conversation)
GI: Soft, Distended (obese) and Non Tender
Neurology: Awake, Alert and No Motor Deficits
Skin: Warm and Dry
Labs/Micro/Reports
Lab Data
07/04/24 06:47
07/04/24 06:47
[2024-07-04 16:46] LABS: Glucose - Point of Care 171 mg/dl (70-99)
[2024-07-04] MEDS: NOVOLOG FLEXPEN-HIGH RESISTANCE 2 UNITS SC (17:44)
[2024-07-04] MEDS: CRESTOR 10 MG PO (17:48)
[2024-07-04 21:17] LABS: Glucose - Point of Care 113 mg/dl (70-99)
[2024-07-04] MEDS: LANTUS 0.05 UNITS SC (22:12)
[2024-07-05] VITALS (9 sets, daily range): BP systolic 96–143; BP diastolic 63–85; PULSE 2–85; O2SAT 93; BMI 32.2
[2024-07-05] MEDS: ProAIR HFA INHALER 2 PUFF INH ×2 (07:28→20:02)
[2024-07-05] MEDS: SPIRIVA RESPIMAT 2.5 MCG 2 PUFF INH (07:28)
[2024-07-05] MEDS: SYMBICORT 160/4.5 MCG INHALER 2 PUFF INH ×2 (07:28→20:02)
[2024-07-05 07:51] LABS: Glucose - Point of Care 95 mg/dl (70-99)
[2024-07-05] MEDS: NOVOLOG FLEXPEN-HIGH RESISTANCE SC ×3 (09:16→16:48)
[2024-07-05] MEDS: CARDIZEM CD 180 MG PO (09:28)
[2024-07-05] MEDS: GLUCOPHAGE 500 MG PO ×2 (09:28→17:25)
[2024-07-05] MEDS: ELIQUIS 5 MG PO ×2 (09:29→19:25)
[2024-07-05] MEDS: DELTASONE 30 MG PO (09:29)
[2024-07-05] MEDS: PROSCAR 5 MG PO (09:29)
[2024-07-05] MEDS: LASIX 60 MG PO (09:29)
[2024-07-05 09:34] LABS: Blood Urea Nitrogen 37 mg/dl (9-20); Calcium 9.8 mg/dl (8.4-10.2); Chloride 91 mmol/L (98-107); Estimated Creatinine Clearance 112 ml/min; Glucose 101 mg/dl (70-99); Potassium 4.3 mmol/L (3.5-5.1); Sodium 140 mmol/L (135-145); eGFR > 60.00
[2024-07-05] MEDS: MIRALAX PO (09:38)
[2024-07-05 09:45] LABS: Carbon Dioxide 35 mmol/L (22-30)
--- NOTE | 2024-07-05 09:46 | W.PN.PUL.V3 ---
Today's Communication / Plan
-
wean oxygen.
Assess discharge supplemental oxygen needs.
Continue inhalers.
Increase activity/PT
Smoking cessation counseling.
Outpatient pulmonary follow-up
Assessment
-
Patient is a 73-year-old male with previous history of COPD, emphysema, current smoking presenting to ER with respiratory distress. On arrival to the ER, he had been noted to have O2 grover of 75% on room air. VBG obtained indicating pCO2 of 66.
He was placed on BiPAP and admitted to ICU for observation. Chest x-ray demonstrating signs consistent with heart failure as well, he has an elevated proBNP. Still smoking 10/02-1 PPD.
Acute on chronic HFpEF
Acute hypoxic and hypercarbic respiratory failure on BIPAP
Ongoing smoking
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
COPD/Emphysema on Trelegy (not on O2)
Chronic hypercapnia
HTN
Smoker since age 9, 1 ppd per day
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
Obesity, BMI 33
History of alcohol abuse
DJD
Visual field defect/Hemorrhage of left eye ([facility])
BPH
Type II diabetes
Prostate s/p turp 11/2016 / Transurethral ablation of prostate 08/19/21
Plan:
Respiratory status slowly improving.
Continue BiPAP at night.
Continue supplemental oxygen-on 6 L-attempt to wean.
Home supplemental oxygen evaluation prior to discharge.
Continue nebulizers.
Continue Symbicort and Spiriva.
Prednisone 30 mg daily with slow taper.
Ongoing smoking cessation counseling.
Aspiration precautions.
Mucus clearing devices.
Suspected severe underlying COPD due to heavy h/o smoking since age 9.
Last seen at [facility] 03/09/[address] Lal[address]
[place] down in office showing severe obstruction, but not acceptable plateau
Prior CT chest showing emphysema as well
Diuresis as tolerated.
Monitor weight, intake, output, electrolytes, and renal function
If not making significant progress, may consider GOC discussions
DVT prophylaxis-on Eliquis
Nutrition
Physical therapy/ rehabilitation
Diagnostic Data
Chest X-Ray: 06/28/24- 1. Mild cardiomegaly.
2. Mild pulmonary vascular congestion.
CT Scan: LDCT 12/04/23- There is a stable 7 mm calcified granuloma in the upper medial aspect of the right middle lobe (image 67); There is a stable 8 mm calcified granuloma in the upper lateral aspect of the right middle lobe (image 71); There is a
stable 6 mm calcified granuloma posterior right lower lobe (image 98)
2). Mild emphysematous changes
3). Atherosclerosis
Echo: 11/03/23- Mild concentric left ventricular hypertrophy. Normal left ventricular chamber size. Normal left ventricular systolic function. Left ventricular ejection fraction is 56% by Funez' s method. Diastolic function indeterminate due to
atrial fibrillation. Mildly dilated right atrium. Mildly dilated aortic root. 3.9 cm. Since echo 11/05/17, there is no significant change. LVH has improved from moderate to mild.
PFT's: 03/09/24- Did not plateau/not acceptable. FEV1 1.05L 30%, FVC 2.68L 55%, ratio 39. FEV1 1.0L 28%, TLC 65%, DLCO 44% (suspected severe obstruction, moderate restriction, moderate diffusion impairment)
.
Subjective Data
-
Date of Service:
Date of Service: July 05, 2024
Chief Complaint: Pulmonary Follow Up and Dyspnea Follow Up
Subjective:
Patient states that he feels better, does not have shortness of breath at rest, minimal chest congestion, some difficulties mobilizing secretions, no chest pain or abdominal pain
Review of Systems
General: Other ( per HPI)
Objective Data
Data Reviewed
Vital Signs / I&O:
Vital Signs
Temp Pulse Resp BP Pulse Ox
98.6 F 76 20 126/74 90
07/05/24 07:25 07/05/24 09:28 07/05/24 07:32 07/05/24 09:28 07/05/24 07:32
Intake and Output
07/04/24 07/05/24 07/06/24
06:59 06:59 06:59
Intake Total 720 / 720 480 / 480
Output Total 3225 / 3225 1800 / 1800
Balance -2505 / -2505 -1320 / -1320
SaO2: 90
Nasal Cannula flow liters per minute: 7
Physical Exam
General: Respiratory Distress, Comfortable and Other (NAD)
HEENT: Normocephalic, Anicteric, Moist Mucous Membranes and Other (poor dentition)
Cardiovascular: S1-S2 and Regular Rhythm
Respiratory: Clear (overall decreased, poor air movement) and Accessory Resp Muscle Use (mild, dyspneic with conversation)
GI: Soft, Distended (obese) and Non Tender
Neurology: Awake, Alert and No Motor Deficits
Skin: Warm, Good Color, Cyanosis (n), Jaundice (n) and Rash (n)
Labs/Micro/Reports
Lab Data
07/04/24 06:47
07/05/24 07:48
[2024-07-05 11:54] LABS: Glucose - Point of Care 137 mg/dl (70-99)
--- NOTE | 2024-07-05 12:45 | W.PN.HOSP.TC ---
Today's Communication/Plan
-
Repeat cxr
wean o2 as tolerated
Bipap qhs/prn
prednisone/lasix therapy
long-term prognosis poor
Assessment / Plan
Assessment / Plan
Physical Exam
General: not in Respiratory Distress
HEENT: Atraumatic, midflow noted
Respiratory: Dec aeration b/l. mild exp wheezing
Cardiac: S1/S2 and no Tachycardia
GI: Soft and Non Tender
Genito-urinary: Clear Urine
Musculoskeletal: No Cyanosis
Skin: Warm; No Jaundice
Neuro: Alert, Oriented and Other (he followed simple commands. No tremors noted )
Psych: No Agitated
73 male admitted with respiratory distress
#Acute on chronic hypoxic and hypercapnic respiratory failure requiring BiPAP therapy
Combination of CHF / COPD exacerbation/ continued tobacco use.
He is on nasal O2 with nightly and PRN Bipap
c/w Nebulizer
s/p IV steroid, IV Lasix, changed to oral Lasix and prednisone
ABG is reviewed.
Mucolytics as needed
Repeat CXR today. last imaging 7d ago.
#Acute diastolic CHF
BNP 88520
Daily weight: Lost 80-10 Kg
C/w IV Lasix BID, change to oral 60 mg QD staring 07/04
Echo 10/2023 :�Normal left ventricular systolic function. EF 56% in 10/2023 . Diastolic function indeterminate due to atrial fibrillation.�
No chest pain, negative troponin
Consulted cardiology
# Hyperkalemia, give Lokelma
# Persistent Atrial fibrillation
Continue Eliquis
Reactive tachycardia with burst of uncontrolled rate in between.
c/w Cardizem, changed to long acting Cardizem
# Essential hypertension
Stable
No hypotension noted
# Hyperlipidemia
Continue statin
# Diabetes
c/w metformin
s/p sliding scale, high scale
Seems to be controlled with ISS and metformin
Will add long acting Lantus,
# Tobacco use
cessation advised
refused nicotine patch
# history of traumatic brain injury
# obesity
# constipation,
c/w bowel regimen with MiraLAX and Dulcolax
BM earlier today
DVT ppx : Eliquis
Anticipated Discharge: > 48 hours
Subjective/Interval History
-
Date of Service: July 05, 2024
on 7L midflow
worked with PT earlier today
Objective Data
-
Labs:
Laboratory Results
07/05/24
07:48
Sodium 140
Potassium 4.3
Chloride 91 L
Carbon Dioxide 35 H
BUN 37 H
Creatinine 0.8
Glucose 101 H
Calcium 9.8
Vital Signs:
Vital Signs
Temp Pulse Resp BP Pulse Ox
98.1 F 72 20 128/83 98
07/05/24 11:25 07/05/24 11:25 07/05/24 11:25 07/05/24 11:25 07/05/24 11:25
I&O
07/04/24 07/05/24 07/06/24
06:59 06:59 06:59
Intake Total 720 / 720 480 / 480
Output Total 3225 / 3225 1800 / 1800
Balance -2505 / -2505 -1320 / -1320
Data Reviewed
-
Total Time Spent with Patient (in minutes): 51
[2024-07-05 16:45] LABS: Glucose - Point of Care 128 mg/dl (70-99)
--- NOTE | 2024-07-05 17:24 | CM ---
PT OT indicate snf VS home with VN .
Pt lives at [facility] with 13 other men.
[facility]
Pt is on 7 liter oxygen also Pox 93%.Will need home oxygen test.
CM ongoing with dc planning.
PLAN dc plan ongoing
[2024-07-05] MEDS: CRESTOR 10 MG PO (17:25)
[2024-07-05 21:19] LABS: Glucose - Point of Care 176 mg/dl (70-99)
[2024-07-05] MEDS: LANTUS 0.05 UNITS SC (22:15)
[2024-07-06 03:34] VITALS: BP 135/72
[2024-07-06 05:49] VITALS: BMI 31.9
[2024-07-06 07:12] VITALS: BP 117/65
[2024-07-06 07:57] LABS: Glucose - Point of Care 116 mg/dl (70-99)
[2024-07-06] MEDS: SYMBICORT 160/4.5 MCG INHALER 2 PUFF INH ×2 (08:12→19:43)
[2024-07-06] MEDS: SPIRIVA RESPIMAT 2.5 MCG 2 PUFF INH (08:12)
[2024-07-06] MEDS: NOVOLOG FLEXPEN-HIGH RESISTANCE 1 UNITS SC ×3 (08:13→17:40)
[2024-07-06] MEDS: LASIX 60 MG PO (08:14)
[2024-07-06] MEDS: GLUCOPHAGE 500 MG PO ×2 (08:14→17:40)
[2024-07-06] MEDS: ELIQUIS 5 MG PO ×2 (08:19→21:39)
[2024-07-06] MEDS: PROSCAR 5 MG PO (08:19)
[2024-07-06] MEDS: DELTASONE 30 MG PO (08:20)
[2024-07-06] MEDS: MIRALAX PO (08:23)
--- NOTE | 2024-07-06 10:18 | W.PN.PUL.V3 ---
Today's Communication / Plan
-
.
Wean oxygen.
BiPAP at night.
Diuresis as tolerated
Assessment
-
Patient is a 73-year-old male with previous history of COPD, emphysema, current smoking presenting to ER with respiratory distress. On arrival to the ER, he had been noted to have O2 grover of 75% on room air. VBG obtained indicating pCO2 of 66.
He was placed on BiPAP and admitted to ICU for observation. Chest x-ray demonstrating signs consistent with heart failure as well, he has an elevated proBNP. Still smoking 10/02-09/30 PPD.
Acute on chronic HFpEF
Acute hypoxic and hypercarbic respiratory failure on BIPAP
Ongoing smoking
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
COPD/Emphysema on Trelegy (not on O2)
Chronic hypercapnia
HTN
Smoker since age 9, 1 ppd per day
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
Obesity, BMI 33
History of alcohol abuse
DJD
Visual field defect/Hemorrhage of left eye ([facility])
BPH
Type II diabetes
Prostate s/p turp 11/2016 / Transurethral ablation of prostate 08/19/21
Plan:
Respiratory status continues to slowly improve
Continue BiPAP at night as tolerated
Continue supplemental oxygen-on 6 L-attempt to wean..
Discharge supplemental oxygen evaluation prior to discharge.
Continue nebulizers.
Continue Symbicort and Spiriva.
Prednisone 30 mg daily with slow taper.
Ongoing smoking cessation counseling.
Aspiration precautions.
Mucus clearing devices.
Suspected severe underlying COPD due to heavy h/o smoking since age 9.
Last seen at [facility] 03/09/[address] Lal[address]
[place] down in office showing severe obstruction, but not acceptable plateau
Prior CT chest showing emphysema as well
Diuresis as tolerated.
Monitor weight, intake, output, electrolytes, and renal function
If not making significant progress, may consider GOC discussions
DVT prophylaxis-on Eliquis
Nutrition
Physical therapy/ rehabilitation
Diagnostic Data
Chest X-Ray: 06/28/24- 1. Mild cardiomegaly.
2. Mild pulmonary vascular congestion.
CT Scan: LDCT 12/04/23- There is a stable 7 mm calcified granuloma in the upper medial aspect of the right middle lobe (image 67); There is a stable 8 mm calcified granuloma in the upper lateral aspect of the right middle lobe (image 71); There is a
stable 6 mm calcified granuloma posterior right lower lobe (image 98)
2). Mild emphysematous changes
3). Atherosclerosis
Echo: 11/03/23- Mild concentric left ventricular hypertrophy. Normal left ventricular chamber size. Normal left ventricular systolic function. Left ventricular ejection fraction is 56% by Funez' s method. Diastolic function indeterminate due to
atrial fibrillation. Mildly dilated right atrium. Mildly dilated aortic root. 3.9 cm. Since echo 11/05/17, there is no significant change. LVH has improved from moderate to mild.
PFT's: 03/09/24- Did not plateau/not acceptable. FEV1 1.05L 30%, FVC 2.68L 55%, ratio 39. FEV1 1.0L 28%, TLC 65%, DLCO 44% (suspected severe obstruction, moderate restriction, moderate diffusion impairment)
.
Subjective Data
-
Date of Service:
Date of Service: July 06, 2024
Chief Complaint: Pulmonary Follow Up and Dyspnea Follow Up
Subjective:
No complaints of worsening sugars of breath, chest pain, chest tightness, productive cough
Review of Systems
General: Other ( per HPI)
Objective Data
Data Reviewed
Vital Signs / I&O:
Vital Signs
Temp Pulse Resp BP Pulse Ox
98.4 F 56 18 117/65 96
07/06/24 07:12 07/06/24 08:19 07/06/24 08:19 07/06/24 07:12 07/06/24 08:19
Intake and Output
07/05/24 07/06/24 07/07/24
06:59 06:59 06:59
Intake Total 480 / 480 1320 / 1320
Output Total 1800 / 1800 1575 / 1575
Balance -1320 / -1320 -255 / -255
SaO2: 96
Nasal Cannula flow liters per minute: 7
Physical Exam
General: Respiratory Distress, Comfortable and Other (NAD)
HEENT: Normocephalic, Anicteric, Moist Mucous Membranes and Other (poor dentition)
Cardiovascular: S1-S2 and Regular Rhythm
Respiratory: Clear (overall decreased, poor air movement) and Accessory Resp Muscle Use (mild, dyspneic with conversation)
GI: Soft, Distended (obese) and Non Tender
Neurology: Awake, Alert and No Motor Deficits
Skin: Warm, Good Color, Cyanosis (n), Jaundice (n) and Rash (n)
Labs/Micro/Reports
Lab Data
07/04/24 06:47
07/05/24 07:48
[2024-07-06] MEDS: CARDIZEM CD 180 MG PO (10:59)
[2024-07-06 11:44] LABS: Glucose - Point of Care 127 mg/dl (70-99)
--- NOTE | 2024-07-06 11:54 | W.PN.HOSP.TC ---
Today's Communication/Plan
-
Wean down O2 further
Monitor on tele
SNF process-CM aware
start dispo
Assessment / Plan
Assessment / Plan
Physical Exam
General: not in Respiratory Distress
HEENT: Atraumatic, midflow noted
Respiratory: Dec aeration b/l. midflow noted
Cardiac: S1/S2
GI: Soft and Non Tender
Genito-urinary: Clear Urine
Musculoskeletal: No Cyanosis
Skin: Warm; No Jaundice
Neuro: Alert, Oriented and Other (he followed simple commands. No tremors noted )
Psych: No Agitated
73 male admitted with respiratory distress
#Acute on chronic hypoxic and hypercapnic respiratory failure requiring BiPAP therapy
Combination of CHF / COPD exacerbation/ continued tobacco use.
He is on nasal O2 with nightly and PRN Bipap
c/w Nebulizer
s/p IV steroid, IV Lasix, changed to oral Lasix and prednisone
ABG is reviewed.
Mucolytics as needed
Now on 5L Midflow-wean down further as tolerated
#Acute diastolic CHF
BNP 66854
Daily weight: Lost 80-10 Kg
C/w IV Lasix BID, change to oral 60 mg QD staring 07/04
Echo 10/2023 :�Normal left ventricular systolic function. EF 56% in 10/2023 . Diastolic function indeterminate due to atrial fibrillation.�
No chest pain, negative troponin
Consulted cardiology
# Hyperkalemia, give Lokelma
# Persistent Atrial fibrillation with mild intermittent bradycardia
Continue Eliquis
Reactive tachycardia with burst of uncontrolled rate in between.
c/w Cardizem, changed to long acting Cardizem
cont to monitor on tele for bradycardia.
# Essential hypertension
Stable
No hypotension noted
# Hyperlipidemia
Continue statin
# Diabetes
c/w metformin
s/p sliding scale, high scale
Seems to be controlled with ISS and metformin
Will add long acting Lantus,
POC 127
# Tobacco use
cessation advised
refused nicotine patch
# history of traumatic brain injury
# obesity
# constipation,
c/w bowel regimen with MiraLAX and Dulcolax
BM earlier today
DVT ppx : Eliquis
PT/OT-SNF. Cm aware. Start dispo process.
Anticipated Discharge: > 48 hours
Subjective/Interval History
-
Date of Service: July 06, 2024
Overnight with episode of bradycardia-asymptomatic
remains on midflow
Objective Data
-
Vital Signs:
Vital Signs
Temp Pulse Resp BP Pulse Ox
98.4 F 72 18 130/74 95
07/06/24 07:12 07/06/24 10:59 07/06/24 08:19 07/06/24 10:59 07/06/24 10:54
I&O
07/05/24 07/06/24 07/07/24
06:59 06:59 06:59
Intake Total 480 / 480 1320 / 1320
Output Total 1800 / 1800 1575 / 1575
Balance -1320 / -1320 -255 / -255
[2024-07-06 15:01] VITALS: BP 116/67
[2024-07-06 16:37] LABS: Glucose - Point of Care 134 mg/dl (70-99)
--- NOTE | 2024-07-06 17:38 | CM ---
PT OT indicate snf .
Spoke with pt in room . He is not wanting snf. PAC data given and encouraged pt to speak with his sister
Pt lives at [facility] with 13 other men.
Molly from [facility] helping to set up Bipap and oxygen for for pt.
Pt is on 7 liter oxygen also Pox 93%.Will need home oxygen test.
CM ongoing with dc planning.
PLAN dc plan ongoing
[2024-07-06] MEDS: CRESTOR 10 MG PO (17:40)
[2024-07-06 19:40] VITALS: BP 141/73
[2024-07-06 21:35] LABS: Glucose - Point of Care 102 mg/dl (70-99)
[2024-07-06] MEDS: LANTUS 0.05 UNITS SC (21:39)
[2024-07-06 22:05] VITALS: PULSE 2; PULSE 60
[2024-07-06 23:34] VITALS: BP 138/80
[2024-07-07] VITALS (10 sets, daily range): BP systolic 112–137; BP diastolic 71–82; PULSE 2–79; O2SAT 94; BMI 31.9
[2024-07-07 04:25] LABS: Glucose - Point of Care 134 mg/dl (70-99)
[2024-07-07 07:43] LABS: Glucose - Point of Care 102 mg/dl (70-99)
[2024-07-07] MEDS: SPIRIVA RESPIMAT 2.5 MCG 2 PUFF INH (07:51)
[2024-07-07] MEDS: SYMBICORT 160/4.5 MCG INHALER 2 PUFF INH ×2 (07:51→19:12)
[2024-07-07] MEDS: LASIX 60 MG PO (08:02)
[2024-07-07] MEDS: CARDIZEM CD 180 MG PO (08:03)
[2024-07-07] MEDS: GLUCOPHAGE 500 MG PO ×2 (08:05→17:03)
[2024-07-07] MEDS: ELIQUIS 5 MG PO ×2 (08:07→22:07)
[2024-07-07] MEDS: PROSCAR 5 MG PO (08:08)
[2024-07-07] MEDS: DELTASONE 30 MG PO (08:08)
[2024-07-07] MEDS: MIRALAX PO (08:10)
[2024-07-07] MEDS: NOVOLOG FLEXPEN-HIGH RESISTANCE 1 UNITS SC ×2 (08:19→12:11)
--- NOTE | 2024-07-07 09:07 | W.PN.PUL.V3 ---
Today's Communication / Plan
-
Wean oxygen.
Prednisone taper.
Diuresis.
He is clearing devices
Assessment
-
Patient is a 73-year-old male with previous history of COPD, emphysema, current smoking presenting to ER with respiratory distress. On arrival to the ER, he had been noted to have O2 grover of 75% on room air. VBG obtained indicating pCO2 of 66.
He was placed on BiPAP and admitted to ICU for observation. Chest x-ray demonstrating signs consistent with heart failure as well, he has an elevated proBNP. Still smoking /-/ PPD.
Acute on chronic HFpEF
Acute hypoxic and hypercarbic respiratory failure on BIPAP
Ongoing smoking
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
COPD/Emphysema on Trelegy (not on O2)
Chronic hypercapnia
HTN
Smoker since age 9, 1 ppd per day
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
Obesity, BMI 33
History of alcohol abuse
DJD
Visual field defect/Hemorrhage of left eye ([facility])
BPH
Type II diabetes
Prostate s/p turp 11/2016 / Transurethral ablation of prostate 08/19/21
Plan:
Respiratory status slowly improving
Continue BiPAP at night as tolerated-thus far tolerating
Continue supplemental oxygen-on 6 L-attempt to wean
Discharge supplemental oxygen evaluation prior to discharge.
Continue nebulizers, Symbicort as well as Spiriva
Prednisone 30 mg daily with slow taper.
Smoking cessation counseling
Aspiration precautions per protocol
Mucus clearing devices continue
Suspected severe underlying COPD due to heavy h/o smoking since age 9.
Last seen at [facility] 03/09/[address] Lal[address]
[place] down in office showing severe obstruction, but not acceptable plateau
Prior CT chest showing emphysema as well
Diuresis as tolerate continues
Monitor weight, intake, output, electrolytes, and renal function
If not making significant progress, may consider GOC discussions
DVT prophylaxis-on Eliquis
Nutrition
Physical therapy/ rehabilitation
Diagnostic Data
Chest X-Ray: 06/28/24- 1. Mild cardiomegaly.
2. Mild pulmonary vascular congestion.
CT Scan: LDCT 12/04/23- There is a stable 7 mm calcified granuloma in the upper medial aspect of the right middle lobe (image 67); There is a stable 8 mm calcified granuloma in the upper lateral aspect of the right middle lobe (image 71); There is a
stable 6 mm calcified granuloma posterior right lower lobe (image 98)
2). Mild emphysematous changes
3). Atherosclerosis
Echo: 11/03/23- Mild concentric left ventricular hypertrophy. Normal left ventricular chamber size. Normal left ventricular systolic function. Left ventricular ejection fraction is 56% by Funez' s method. Diastolic function indeterminate due to
atrial fibrillation. Mildly dilated right atrium. Mildly dilated aortic root. 3.9 cm. Since echo 11/05/17, there is no significant change. LVH has improved from moderate to mild.
PFT's: 03/09/24- Did not plateau/not acceptable. FEV1 1.05L 30%, FVC 2.68L 55%, ratio 39. FEV1 1.0L 28%, TLC 65%, DLCO 44% (suspected severe obstruction, moderate restriction, moderate diffusion impairment)
.
Subjective Data
-
Date of Service:
Date of Service: July 07, 2024
Chief Complaint: Pulmonary Follow Up and Dyspnea Follow Up
Subjective:
Feels about the same, tolerated BiPAP last night, some chest congestion, difficulty mobilizing secretions, no chest pain, increased wheezing, or abdominal pain
Review of Systems
General: Other ( per HPI)
Objective Data
Data Reviewed
Vital Signs / I&O:
Vital Signs
Temp Pulse Resp BP Pulse Ox
97.5 F 64 20 131/71 98
07/07/24 08:40 07/07/24 08:40 07/07/24 08:40 07/07/24 08:40 07/07/24 08:40
Intake and Output
07/06/24 07/07/24 07/08/24
06:59 06:59 06:59
Intake Total 1320 / 1320 960 / 960
Output Total 1575 / 1575 1275 / 1275
Balance -255 / -255 -315 / -315
SaO2: 98
Nasal Cannula flow liters per minute: 5
Physical Exam
General: Respiratory Distress, Comfortable and Other (NAD)
HEENT: Normocephalic, Anicteric, Moist Mucous Membranes and Other (poor dentition)
Cardiovascular: S1-S2 and Regular Rhythm
Respiratory: Clear (overall decreased, poor air movement) and Accessory Resp Muscle Use (mild, dyspneic with conversation)
GI: Soft, Distended (obese) and Non Tender
Neurology: Awake, Alert and No Motor Deficits
Skin: Warm, Good Color, Cyanosis (n), Jaundice (n) and Rash (n)
Labs/Micro/Reports
Lab Data
07/04/24 06:47
[2024-07-07 10:19] LABS: Blood Urea Nitrogen 29 mg/dl (9-20); Calcium 9.6 mg/dl (8.4-10.2); Carbon Dioxide 37 mmol/L (22-30); Chloride 93 mmol/L (98-107); Estimated Creatinine Clearance 111 ml/min; Glucose 112 mg/dl (70-99); Magnesium 2.2 mg/dl (1.6-2.3); Potassium 4.5 mmol/L (3.5-5.1); Sodium 140 mmol/L (135-145); eGFR > 60.00
--- NOTE | 2024-07-07 11:23 | W.PN.HOSP.TC ---
Today's Communication/Plan
-
wean o2 as tolerated
CM for SNF placement
cont lasix/prednisone
Assessment / Plan
Assessment / Plan
Physical Exam
General: not in Respiratory Distress
HEENT: Atraumatic, midflow noted
Respiratory: Dec aeration b/l. NC 5L noted
Cardiac: S1/S2
GI: Soft and Non Tender
Genito-urinary: Clear Urine
Musculoskeletal: No Cyanosis
Skin: Warm; No Jaundice
Neuro: Alert, Oriented and Other (he followed simple commands. No tremors noted )
Psych: No Agitated
73 male admitted with respiratory distress
#Acute on chronic hypoxic and hypercapnic respiratory failure requiring BiPAP therapy
Combination of CHF / COPD exacerbation/ continued tobacco use.
He is on nasal O2 with nightly and PRN Bipap
c/w Nebulizer
s/p IV steroid, IV Lasix, changed to oral Lasix and prednisone
ABG is reviewed.
Mucolytics as needed
Now on 5L NC -wean down further as tolerated
Home o2 eval prior to dc.
#Acute diastolic CHF
BNP 47213
Daily weight: Lost 80-10 Kg
C/w IV Lasix BID, change to oral 60 mg QD staring 07/04
Echo 10/2023 :�Normal left ventricular systolic function. EF 56% in 10/2023 . Diastolic function indeterminate due to atrial fibrillation.�
No chest pain, negative troponin
Consulted cardiology
# Hyperkalemia, give Lokelma
# Persistent Atrial fibrillation with mild intermittent bradycardia
Continue Eliquis
Reactive tachycardia with burst of uncontrolled rate in between.
c/w Cardizem, changed to long acting Cardizem
cont to monitor on tele for bradycardia.
# Essential hypertension
Stable
No hypotension noted
# Hyperlipidemia
Continue statin
# Diabetes
c/w metformin
s/p sliding scale, high scale
Seems to be controlled with ISS and metformin
Will add long acting Lantus,
POC 102
# Tobacco use
cessation advised
refused nicotine patch
# history of traumatic brain injury
# obesity
# constipation,
c/w bowel regimen with MiraLAX and Dulcolax
DVT ppx : Eliquis
PT/OT-SNF. Cm aware. Start dispo process.
Anticipated Discharge: Within 24 hours
Subjective/Interval History
-
Date of Service: July 07, 2024
remains on 5L oxygen
Objective Data
-
Labs:
Laboratory Results
07/07/24
08:11
Sodium 140
Potassium 4.5
Chloride 93 L
Carbon Dioxide 37 H
BUN 29 H
Creatinine 0.8
Glucose 112 H
Calcium 9.6
Vital Signs:
Vital Signs
Temp Pulse Resp BP Pulse Ox
95.6 F L 62 18 135/72 94
07/07/24 11:18 07/07/24 11:18 07/07/24 11:18 07/07/24 11:18 07/07/24 11:18
I&O
07/06/24 07/07/24 07/08/24
06:59 06:59 06:59
Intake Total 1320 / 1320 960 / 960
Output Total 1575 / 1575 1275 / 1275
Balance -255 / -255 -315 / -315
[2024-07-07 12:05] LABS: Glucose - Point of Care 118 mg/dl (70-99)
[2024-07-07 16:30] LABS: Glucose - Point of Care 177 mg/dl (70-99)
[2024-07-07] MEDS: CRESTOR 10 MG PO (17:03)
[2024-07-07] MEDS: NOVOLOG FLEXPEN-HIGH RESISTANCE 2 UNITS SC (17:04)
--- NOTE | 2024-07-07 17:52 | CM ---
PT OT indicate snf .
Spoke with pt in room . he requested referral for [facility].
Referral in care port
Molly from [facility] helping to set up Bipap and oxygen for for pt.
Pt is on 7 liter oxygen also Pox 93%.Will need home oxygen test.
CM ongoing with dc planning.
PLAN SNF when accepted and auth
[2024-07-07 21:43] LABS: Glucose - Point of Care 134 mg/dl (70-99)
[2024-07-07] MEDS: LANTUS 0.05 UNITS SC (22:07)
[2024-07-08] VITALS (8 sets, daily range): BP systolic 118–154; BP diastolic 70–88; PULSE 2–54; O2SAT 95; BMI 31.9
[2024-07-08] MEDS: SPIRIVA RESPIMAT 2.5 MCG 2 PUFF INH (07:33)
[2024-07-08] MEDS: SYMBICORT 160/4.5 MCG INHALER 2 PUFF INH ×2 (07:33→19:45)
[2024-07-08] MEDS: DELTASONE 30 MG PO (08:05)
[2024-07-08] MEDS: GLUCOPHAGE 500 MG PO ×2 (08:06→17:14)
[2024-07-08] MEDS: PROSCAR 5 MG PO (08:06)
[2024-07-08] MEDS: LASIX 60 MG PO (08:06)
[2024-07-08] MEDS: CARDIZEM CD 180 MG PO (08:06)
[2024-07-08] MEDS: ELIQUIS 5 MG PO ×2 (08:06→20:54)
[2024-07-08] MEDS: NOVOLOG FLEXPEN-HIGH RESISTANCE 1 UNITS SC ×2 (08:08→17:14)
[2024-07-08] MEDS: MIRALAX PO (08:08)
[2024-07-08 08:09] LABS: Glucose - Point of Care 194 mg/dl (70-99)
--- NOTE | 2024-07-08 09:54 | W.PN.PUL.V3 ---
Today's Communication / Plan
-
Prednisone taper
Wean oxygen
Diuretics
Outpatient pulmonary follow-up
Assessment
-
Patient is a 73-year-old male with previous history of COPD, emphysema, current smoking presenting to ER with respiratory distress. On arrival to the ER, he had been noted to have O2 grover of 75% on room air. VBG obtained indicating pCO2 of 66.
He was placed on BiPAP and admitted to ICU for observation. Chest x-ray demonstrating signs consistent with heart failure as well, he has an elevated proBNP. Still smoking 10/02-09/30 PPD.
Acute on chronic HFpEF
Acute hypoxic and hypercarbic respiratory failure on BIPAP
Ongoing smoking
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
COPD/Emphysema on Trelegy (not on O2)
Chronic hypercapnia
HTN
Smoker since age 9, 1 ppd per day
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
Obesity, BMI 33
History of alcohol abuse
DJD
Visual field defect/Hemorrhage of left eye ([facility])
BPH
Type II diabetes
Prostate s/p turp 11/2016 / Transurethral ablation of prostate 08/19/21
Plan:
Respiratory status is stable
Continue BiPAP at night as tolerated-tolerating
Continue supplemental oxygen-on 6 L-attempt to wean
Discharge supplemental oxygen evaluation prior to discharge.
Continue nebulizers, Symbicort as well as Spiriva
Prednisone 30 mg daily with slow taper.
Smoking cessation counseling ongoing
Aspiration precautions per protocol
Mucus clearing devices continue
Suspected severe underlying COPD due to heavy h/o smoking since age 9.
Last seen at [facility] 03/09/[address] Lal[address]
[place] down in office showing severe obstruction, but not acceptable plateau
Prior CT chest showing emphysema as well
Diuresis as tolerate continues
Monitor weight, intake, output, electrolytes, and renal function
If not making significant progress, may consider GOC discussions
DVT prophylaxis-on Eliquis
Nutrition
Physical therapy/ rehabilitation
Diagnostic Data
Chest X-Ray: 06/28/24- 1. Mild cardiomegaly.
2. Mild pulmonary vascular congestion.
CT Scan: LDCT 12/04/23- There is a stable 7 mm calcified granuloma in the upper medial aspect of the right middle lobe (image 67); There is a stable 8 mm calcified granuloma in the upper lateral aspect of the right middle lobe (image 71); There is a
stable 6 mm calcified granuloma posterior right lower lobe (image 98)
2). Mild emphysematous changes
3). Atherosclerosis
Echo: 11/03/23- Mild concentric left ventricular hypertrophy. Normal left ventricular chamber size. Normal left ventricular systolic function. Left ventricular ejection fraction is 56% by Funez' s method. Diastolic function indeterminate due to
atrial fibrillation. Mildly dilated right atrium. Mildly dilated aortic root. 3.9 cm. Since echo 11/05/17, there is no significant change. LVH has improved from moderate to mild.
PFT's: 03/09/24- Did not plateau/not acceptable. FEV1 1.05L 30%, FVC 2.68L 55%, ratio 39. FEV1 1.0L 28%, TLC 65%, DLCO 44% (suspected severe obstruction, moderate restriction, moderate diffusion impairment)
.
Subjective Data
-
Date of Service:
Date of Service: July 08, 2024
Chief Complaint: Pulmonary Follow Up and Dyspnea Follow Up
Subjective:
Tolerated BiPAP, no complaints of shortness of breath, chest pain or abdominal pain
Review of Systems
General: Other (Per HPI)
Objective Data
Data Reviewed
Vital Signs / I&O:
Vital Signs
Temp Pulse Resp BP Pulse Ox
98.0 F 86 20 154/88 92
07/08/24 07:54 07/08/24 08:06 07/08/24 07:54 07/08/24 08:06 07/08/24 08:40
Intake and Output
07/07/24 07/08/24 07/09/24
06:59 06:59 06:59
Intake Total 960 / 960 720 / 720
Output Total 1275 / 1275 1300 / 1300
Balance -315 / -315 -580 / -580
SaO2: 92
Nasal Cannula flow liters per minute: 5
Physical Exam
General: Respiratory Distress, Comfortable and Other (NAD)
HEENT: Normocephalic, Anicteric, Moist Mucous Membranes and Other (poor dentition)
Cardiovascular: S1-S2 and Regular Rhythm
Respiratory: Clear (overall decreased, poor air movement) and Accessory Resp Muscle Use (mild, dyspneic with conversation)
GI: Soft, Distended (obese) and Non Tender
Neurology: Awake, Alert and No Motor Deficits
Skin: Warm, Good Color, Cyanosis (n), Jaundice (n) and Rash (n)
Labs/Micro/Reports
Lab Data
07/04/24 06:47
07/07/24 08:11
--- NOTE | 2024-07-08 11:38 | W.PN.HOSP.TC ---
Today's Communication/Plan
-
await placement
Wean o2 as tolerated
oob/pt
Assessment / Plan
Assessment / Plan
Physical Exam
General: not in Respiratory Distress
HEENT: Atraumatic, midflow noted
Respiratory: Dec aeration b/l. NC 5L noted
Cardiac: S1/S2
GI: Soft and Non Tender
Genito-urinary: Clear Urine
Musculoskeletal: No Cyanosis
Skin: Warm; No Jaundice
Neuro: Alert, Oriented and Other (he followed simple commands. No tremors noted )
Psych: No Agitated
73 male admitted with respiratory distress
#Acute on chronic hypoxic and hypercapnic respiratory failure requiring BiPAP therapy
Combination of CHF / COPD exacerbation/ continued tobacco use.
He is on nasal O2 with nightly and PRN Bipap
c/w Nebulizer
s/p IV steroid, IV Lasix, changed to oral Lasix and prednisone
ABG is reviewed.
Mucolytics as needed
Now on 5L NC -wean down further as tolerated
#Acute diastolic CHF
BNP 59001
Daily weight: Lost 80-10 Kg
C/w IV Lasix BID, change to oral 60 mg QD staring 07/04
Echo 10/2023 :�Normal left ventricular systolic function. EF 56% in 10/2023 . Diastolic function indeterminate due to atrial fibrillation.�
No chest pain, negative troponin
No plan to restart entersto due to soft BP/Hyperkalemia
Consulted cardiology
# Hyperkalemia, give Lokelma
# Persistent Atrial fibrillation with mild intermittent bradycardia
Continue Eliquis
Reactive tachycardia with burst of uncontrolled rate in between.
c/w Cardizem, changed to long acting Cardizem
cont to monitor on tele for bradycardia.
# Essential hypertension
Stable
No hypotension noted
# Hyperlipidemia
Continue statin
# Diabetes
c/w metformin
s/p sliding scale, high scale
Seems to be controlled with ISS and metformin
Will add long acting Lantus,
POC 194
# Tobacco use
cessation advised
refused nicotine patch
# history of traumatic brain injury
# obesity
# constipation,
c/w bowel regimen with MiraLAX and Dulcolax
DVT ppx : Eliquis
PT/OT-SNF. Cm aware. Start dispo process.
Anticipated Discharge: Within 24 hours
Subjective/Interval History
-
Date of Service: July 08, 2024
Agreed to go on SNF
remains on 5L
Objective Data
-
Vital Signs:
Vital Signs
Temp Pulse Resp BP Pulse Ox
98.3 F 57 18 137/73 92
07/08/24 11:02 07/08/24 11:02 07/08/24 11:02 07/08/24 11:02 07/08/24 11:02
I&O
07/07/24 07/08/24 07/09/24
06:59 06:59 06:59
Intake Total 960 / 960 720 / 720
Output Total 1275 / 1275 1300 / 1300
Balance -315 / -315 -580 / -580
[2024-07-08 11:40] LABS: Glucose - Point of Care 123 mg/dl (70-99)
[2024-07-08] MEDS: NOVOLOG FLEXPEN-HIGH RESISTANCE SC (12:35)
[2024-07-08 16:39] LABS: Glucose - Point of Care 152 mg/dl (70-99)
--- NOTE | 2024-07-08 17:07 | CM ---
PT OT indicate snf .
Spoke with pt in room he requested referral for [facility].
Spoke with Renetta at [facility] she is unsure she can accept.
Molly from [facility] helping to set up Bipap and oxygen for for pt.
Pt is on 7 liter oxygen also Pox 93%.Will need home oxygen test.
CM ongoing with dc planning.
PLAN Check with [facility] enter other SNF will auth
[2024-07-08] MEDS: CRESTOR 10 MG PO (17:14)
[2024-07-08 21:24] LABS: Glucose - Point of Care 111 mg/dl (70-99)
[2024-07-08] MEDS: LANTUS 0.05 UNITS SC (21:33)
[2024-07-09] VITALS (9 sets, daily range): BP systolic 130–145; BP diastolic 68–87; PULSE 2–77; O2SAT 94; BMI 31.6
[2024-07-09] MEDS: SYMBICORT 160/4.5 MCG INHALER 2 PUFF INH ×2 (07:20→19:22)
[2024-07-09] MEDS: SPIRIVA RESPIMAT 2.5 MCG 2 PUFF INH (07:21)
[2024-07-09 08:03] LABS: Glucose - Point of Care 118 mg/dl (70-99)
[2024-07-09] MEDS: NOVOLOG FLEXPEN-HIGH RESISTANCE SC (08:05)
[2024-07-09] MEDS: CARDIZEM CD 180 MG PO (08:32)
[2024-07-09] MEDS: PROSCAR 5 MG PO (08:32)
[2024-07-09] MEDS: ELIQUIS 5 MG PO ×2 (08:32→20:43)
[2024-07-09] MEDS: GLUCOPHAGE 500 MG PO ×2 (08:32→16:43)
[2024-07-09] MEDS: LASIX 60 MG PO (08:32)
[2024-07-09] MEDS: MIRALAX 17 GRAMS PO (08:35)
[2024-07-09] MEDS: DELTASONE 30 MG PO (08:39)
--- NOTE | 2024-07-09 10:24 | W.PN.PUL.V3 ---
Today's Communication / Plan
-
Supplemental oxygen as needed.
Prednisone taper.
Continue inhalers and nebulizers as needed.
Tolerating BiPAP and benefiting from it.-Reviewed with case management-would recommend as an outpatient- appropriate verbiage and justification documented in progress note
Assessment
-
Patient is a 73-year-old male with previous history of COPD, emphysema, current smoking presenting to ER with respiratory distress. On arrival to the ER, he had been noted to have O2 grover of 75% on room air. VBG obtained indicating pCO2 of 66.
He was placed on BiPAP and admitted to ICU for observation. Chest x-ray demonstrating signs consistent with heart failure as well, he has an elevated proBNP. Still smoking 1/-1/2 PPD.
Acute on chronic HFpEF
Acute hypoxic and hypercarbic respiratory failure on BIPAP
Ongoing smoking
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
COPD/Emphysema on Trelegy (not on O2)
Chronic hypercapnia
HTN
Smoker since age 9, 1 ppd per day
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
Obesity, BMI 33
History of alcohol abuse
DJD
Visual field defect/Hemorrhage of left eye ([facility])
BPH
Type II diabetes
Prostate s/p turp 11/2016 / Transurethral ablation of prostate 08/19/21
Plan:
Respiratory status continues to be stable
Continue BiPAP at night as [id number]-ml'll attempt to arrange at time of discharge
Continue supplemental oxygen-on 6 L-attempt to wean
Discharge supplemental oxygen evaluation prior to discharge.
Continue nebulizers, Symbicort as well as Spiriva
Prednisone 30 mg daily with slow taper.
Smoking cessation counseling ongoing
Aspiration precautions per protocol
Mucus clearing devices continue
Suspected severe underlying COPD due to heavy h/o smoking since age 9.
Last seen at [facility] 03/09/[address] Lal[address]
[place] down in office showing severe obstruction, but not acceptable plateau
Prior CT chest showing emphysema as well
Diuresis continues as tolerate continues
Monitor weight, intake, output, electrolytes, and renal function
If not making significant progress, may consider GOC discussions
DVT prophylaxis-on Eliquis
Nutrition
Physical therapy/ rehabilitation
Patient stable for discharge from a pulmonary perspective and recommend BiPAP therapy.
Justification for this 73-year-old male with end-stage COPD with multiple emergency room and hospital readmissions complaining of shortness of breath and respiratory failure. The patient has had PCO2 elevation of 63 on 2 L of oxygen. He is on
oxygen continuously. Patient reports he gets short of breath with minimal exertion and reports joint pains limiting him because of his breathing. Due to the patient's COPD and hypoventilation, chronic hypercapnia. The patient is at risk of
worsening chronic respiratory failure. I have considered BiPAP, bilevel ST and bilevel BAP S therapy, and they have been ruled out. Due to patient's worsening condition. The patient now requires a unique mode of ventilation, not offered on less
costly options. The patient requires a device that will not fail in the event of power failure is also portable for mobility within the home when needed. Visit. Patient's worsening condition. I am prescribing noninvasive ventilation therapy to
decrease the chance of continued unplanned expensive medical encounters including physician office visits, emergency room/urgent care treatment and hospital readmissions.
Diagnostic Data
Chest X-Ray: 06/28/24- 1. Mild cardiomegaly.
2. Mild pulmonary vascular congestion.
CT Scan: LDCT 12/04/23- There is a stable 7 mm calcified granuloma in the upper medial aspect of the right middle lobe (image 67); There is a stable 8 mm calcified granuloma in the upper lateral aspect of the right middle lobe (image 71); There is a
stable 6 mm calcified granuloma posterior right lower lobe (image 98)
2). Mild emphysematous changes
3). Atherosclerosis
Echo: 11/03/23- Mild concentric left ventricular hypertrophy. Normal left ventricular chamber size. Normal left ventricular systolic function. Left ventricular ejection fraction is 56% by Funez' s method. Diastolic function indeterminate due to
atrial fibrillation. Mildly dilated right atrium. Mildly dilated aortic root. 3.9 cm. Since echo 11/05/17, there is no significant change. LVH has improved from moderate to mild.
PFT's: 03/09/24- Did not plateau/not acceptable. FEV1 1.05L 30%, FVC 2.68L 55%, ratio 39. FEV1 1.0L 28%, TLC 65%, DLCO 44% (suspected severe obstruction, moderate restriction, moderate diffusion impairment)
.
Subjective Data
-
Date of Service:
Date of Service: July 09, 2024
Chief Complaint: Pulmonary Follow Up and Dyspnea Follow Up
Subjective:
Tolerating BiPAP and using, beneficial, no increased shortness of breath, chest pain, chest tightness, wheezing, or abdominal pain
Review of Systems
General: Other (per HPI)
Objective Data
Data Reviewed
Vital Signs / I&O:
Vital Signs
Temp Pulse Resp BP Pulse Ox
98.2 F 67 18 141/78 93
07/09/24 07:53 07/09/24 07:53 07/09/24 07:53 07/09/24 07:53 07/09/24 08:25
Intake and Output
07/08/24 07/09/24 07/10/24
06:59 06:59 06:59
Intake Total 720 / 720
Output Total 1300 / 1300 1300 / 1300
Balance -580 / -580 -1300 / -1300
SaO2: 93
Nasal Cannula flow liters per minute: 5
Physical Exam
General: Respiratory Distress, Comfortable and Other (NAD)
HEENT: Normocephalic, Anicteric, Moist Mucous Membranes and Other (poor dentition)
Cardiovascular: S1-S2 and Regular Rhythm
Respiratory: Clear (overall decreased, poor air movement) and Accessory Resp Muscle Use (mild, dyspneic with conversation)
GI: Soft, Distended (obese) and Non Tender
Neurology: Awake, Alert and No Motor Deficits
Skin: Warm, Good Color, Cyanosis (n), Jaundice (n) and Rash (n)
Labs/Micro/Reports
Lab Data
07/04/24 06:47
07/07/24 08:11
[2024-07-09 12:09] LABS: Glucose - Point of Care 340 mg/dl (70-99)
[2024-07-09] MEDS: NOVOLOG FLEXPEN-HIGH RESISTANCE 10 UNITS SC (12:14)
--- NOTE | 2024-07-09 12:23 | W.PN.HOSP.TC ---
Addendum entered and electronically signed by Ken Claros MD 07/09/24 15:15:
update sister over the phone in details
Original Note:
Today's Communication/Plan
-
await placement
downtitrate steroids
cont lasix
wean o2
Assessment / Plan
Assessment / Plan
Physical Exam
General: not in Respiratory Distress
HEENT: Atraumatic, midflow noted
Respiratory: Dec aeration b/l. NC 5L noted
Cardiac: S1/S2
GI: Soft and Non Tender
Genito-urinary: Clear Urine
Musculoskeletal: No Cyanosis
Skin: Warm; No Jaundice
Neuro: Alert, Oriented and Other (he followed simple commands. No tremors noted )
Psych: No Agitated
73 male admitted with respiratory distress
#Acute on chronic hypoxic and hypercapnic respiratory failure requiring BiPAP therapy
Combination of CHF / COPD exacerbation/ continued tobacco use.
He is on nasal O2 with nightly and PRN Bipap
c/w Nebulizer
s/p IV steroid, IV Lasix, changed to oral Lasix and prednisone 30mg and can downtitrate further
ABG is reviewed.
Mucolytics as needed
Now on 5L NC -wean down further as tolerated
#Acute diastolic CHF
BNP 82620
Daily weight: Lost 80-10 Kg
C/w IV Lasix BID, change to oral 60 mg QD staring 07/04
Echo 10/2023 :�Normal left ventricular systolic function. EF 56% in 10/2023 . Diastolic function indeterminate due to atrial fibrillation.�
No chest pain, negative troponin
No plan to restart entersto due to soft BP/Hyperkalemia
Consulted cardiology
# Hyperkalemia, give Lokelma
# Persistent Atrial fibrillation with mild intermittent bradycardia
Continue Eliquis
Reactive tachycardia with burst of uncontrolled rate in between.
c/w Cardizem, changed to long acting Cardizem
cont to monitor on tele for bradycardia.
# Essential hypertension
Stable
No hypotension noted
# Hyperlipidemia
Continue statin
# Diabetes
c/w metformin
s/p sliding scale, high scale
Seems to be controlled with ISS and metformin
Lantus added and continued for now.
# Tobacco use
cessation advised
refused nicotine patch
# history of traumatic brain injury
# obesity
# constipation,
c/w bowel regimen with MiraLAX and Dulcolax
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
PT/OT-SNF. Cm aware. Start dispo process.
Anticipated Discharge: Today
Subjective/Interval History
-
Date of Service: July 09, 2024
sitting in chair
denies sob
tolerating diet
Objective Data
-
Vital Signs:
Vital Signs
Temp Pulse Resp BP Pulse Ox
98.3 F 79 20 130/68 97
07/09/24 11:49 07/09/24 11:49 07/09/24 11:49 07/09/24 11:49 07/09/24 11:49
I&O
07/08/24 07/09/24 07/10/24
06:59 06:59 06:59
Intake Total 720 / 720
Output Total 1300 / 1300 1300 / 1300
Balance -580 / -580 -1300 / -1300
[2024-07-09 13:26] LABS: Glucose - Point of Care 173 mg/dl (70-99)
[2024-07-09 16:30] LABS: Glucose - Point of Care 243 mg/dl (70-99)
[2024-07-09] MEDS: NOVOLOG FLEXPEN-HIGH RESISTANCE 4 UNITS SC (16:41)
[2024-07-09] MEDS: CRESTOR 10 MG PO (16:43)
--- NOTE | 2024-07-09 17:34 | CM ---
Spoke with Renetta she can not accept at [facility].
Spoke with sister Linda [phone] she suggested [facility].Referrals placed in care port.
Molly from [facility] faxed Bipap script and clinical.
Pt is on 5 liter oxygen also Pox 96%.Will need home oxygen test.
Will need auth
PLAN Will need auth for [facility] hospital
[2024-07-09 21:26] LABS: Glucose - Point of Care 112 mg/dl (70-99)
[2024-07-09] MEDS: LANTUS 0.05 UNITS SC (21:26)
[2024-07-10] VITALS (8 sets, daily range): BP systolic 105–139; BP diastolic 67–82; PULSE 2–65; BMI 32.1
[2024-07-10 07:33] LABS: Glucose - Point of Care 132 mg/dl (70-99)
[2024-07-10] MEDS: SPIRIVA RESPIMAT 2.5 MCG 2 PUFF INH (07:39)
[2024-07-10] MEDS: SYMBICORT 160/4.5 MCG INHALER 2 PUFF INH ×2 (07:39→19:28)
[2024-07-10] MEDS: NOVOLOG FLEXPEN-HIGH RESISTANCE SC ×3 (08:07→17:06)
[2024-07-10] MEDS: PROSCAR 5 MG PO (08:50)
[2024-07-10] MEDS: CARDIZEM CD 180 MG PO (08:50)
[2024-07-10] MEDS: DELTASONE 20 MG PO (08:50)
[2024-07-10] MEDS: ELIQUIS 5 MG PO ×2 (08:50→19:43)
[2024-07-10] MEDS: LASIX 60 MG PO (08:51)
[2024-07-10] MEDS: GLUCOPHAGE 500 MG PO ×2 (08:51→17:07)
[2024-07-10] MEDS: MIRALAX PO (08:54)
--- NOTE | 2024-07-10 11:21 | W.PN.HOSP.TC ---
Today's Communication/Plan
-
wean o2 as tolerated
Po steroids/lasix
await auth
Assessment / Plan
Assessment / Plan
Physical Exam
General: not in Respiratory Distress
HEENT: Atraumatic, midflow noted
Respiratory: Dec aeration b/l. NC 5L noted
Cardiac: S1/S2
GI: Soft and Non Tender
Genito-urinary: Clear Urine
Musculoskeletal: No Cyanosis
Skin: Warm; No Jaundice
Neuro: Alert, Oriented and Other (he followed simple commands. No tremors noted )
Psych: No Agitated
73 male admitted with respiratory distress
#Acute on chronic hypoxic and hypercapnic respiratory failure requiring BiPAP therapy
Combination of CHF / COPD exacerbation/ continued tobacco use.
He is on nasal O2 with nightly and PRN Bipap
c/w Nebulizer
s/p IV steroid, IV Lasix, changed to oral Lasix and prednisone 30mg and can downtitrate further
ABG is reviewed.
Mucolytics as needed
Now on 5L NC -wean down further as tolerated
#Acute diastolic CHF
BNP 53186
Daily weight: Lost 80-10 Kg
C/w IV Lasix BID, change to oral 60 mg QD staring 07/04
Echo 10/2023 :�Normal left ventricular systolic function. EF 56% in 10/2023 . Diastolic function indeterminate due to atrial fibrillation.�
No chest pain, negative troponin
No plan to restart entersto due to soft BP/Hyperkalemia
Consulted cardiology
# Hyperkalemia, give Lokelma
# Persistent Atrial fibrillation with mild intermittent bradycardia
Continue Eliquis
Reactive tachycardia with burst of uncontrolled rate in between.
c/w Cardizem, changed to long acting Cardizem
cont to monitor on tele for bradycardia.
# Essential hypertension
Stable
No hypotension noted
# Hyperlipidemia
Continue statin
# Diabetes
c/w metformin
s/p sliding scale, high scale
Seems to be controlled with ISS and metformin
Lantus added and continued for now.
# Tobacco use
cessation advised
refused nicotine patch
# history of traumatic brain injury
# obesity
# constipation,
c/w bowel regimen with MiraLAX and Dulcolax
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 intermediate accountant prognosis guarded.
update sister over the phone on 07/09
PT/OT-SNF. Cm aware. Start dispo process. Await insurance authorization.
Anticipated Discharge: Within 24 hours
Subjective/Interval History
-
Date of Service: July 10, 2024
on 5L oxygen
Objective Data
-
Vital Signs:
Vital Signs
Temp Pulse Resp BP Pulse Ox
97.9 F 73 18 131/78 94
07/10/24 07:16 07/10/24 08:50 07/10/24 07:44 07/10/24 08:50 07/10/24 08:45
I&O
07/09/24 07/10/24 07/11/24
06:59 06:59 06:59
Intake Total 1160 / 1160
Output Total 1300 / 1300 1875 / 1875
Balance -1300 / -1300 -715 / -715
[2024-07-10 11:36] LABS: Glucose - Point of Care 141 mg/dl (70-99)
[2024-07-10 16:45] LABS: Glucose - Point of Care 123 mg/dl (70-99)
--- NOTE | 2024-07-10 16:58 | W.PN.PUL3 ---
Today's Communication / Plan
-
Inhalers continue
Nebulizers continue
Prednisone taper
Wean down FiO2
Physical therapy as able
Diuresis as able
Smoking cessation
Discharge planning
Sign off
Assessment
-
Patient is a 73-year-old male with previous history of COPD, emphysema, current smoking presenting to ER with respiratory distress. On arrival to the ER, he had been noted to have O2 grover of 75% on room air. VBG obtained indicating pCO2 of 66.
He was placed on BiPAP and admitted to ICU for observation. Chest x-ray demonstrating signs consistent with heart failure as well, he has an elevated proBNP. Still smoking /-1/ PPD.
Acute on chronic HFpEF
Acute hypoxic and hypercarbic respiratory failure on BIPAP
Ongoing smoking
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
COPD/Emphysema on Trelegy (not on O2)
Chronic hypercapnia
HTN
Smoker since age 9, 1 ppd per day
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
Obesity, BMI 33
History of alcohol abuse
DJD
Visual field defect/Hemorrhage of left eye ([facility])
BPH
Type II diabetes
Prostate s/p turp 11/2016 / Transurethral ablation of prostate 08/19/21
Plan:
Respiratory status continues to be stable
Continue BiPAP at night as [id number]-[id number] attempt to arrange at time of discharge
Continue oxygen supplementation-wean as able. Currently on 5 L.
Continue nebulizers, Symbicort as well as Spiriva
Prednisone 30 mg daily, decrease by 10 mg every 72 hours to off.
Smoking cessation counseling ongoing-encouraged
Mucus clearing devices continue
Suspected severe underlying COPD due to heavy h/o smoking since age 9.
Last seen at [facility] 03/09/[address]
Prior [address] chest showing emphysema as well
Continue diuresis as able
Monitor weight, intake, output, electrolytes, and renal function
High risk intubation
DVT prophylaxis-on Eliquis
Nutrition
Physical therapy/ rehabilitation
Patient stable for discharge from a pulmonary perspective and recommend BiPAP therapy.
Justification for this 73-year-old male with end-stage COPD with multiple emergency room and hospital readmissions complaining of shortness of breath and respiratory failure. The patient has had PCO2 elevation of 63 on 2 L of oxygen. He is on
oxygen continuously. Patient reports he gets short of breath with minimal exertion and reports joint pains limiting him because of his breathing. Due to the patient's COPD and hypoventilation, chronic hypercapnia. The patient is at risk of
worsening chronic respiratory failure. I have considered BiPAP, bilevel ST and bilevel BAP S therapy, and they have been ruled out. Due to patient's worsening condition. The patient now requires a unique mode of ventilation, not offered on less
costly options. The patient requires a device that will not fail in the event of power failure is also portable for mobility within the home when needed. Visit. Patient's worsening condition. I am prescribing noninvasive ventilation therapy to
decrease the chance of continued unplanned expensive medical encounters including physician office visits, emergency room/urgent care treatment and hospital readmissions.
-
No additional recommendation from the pulmonary perspective. I agree with discharge planning.
Diagnostic Data
Chest X-Ray: 06/28/24- 1. Mild cardiomegaly.
2. Mild pulmonary vascular congestion.
CT Scan: LDCT 12/04/23- There is a stable 7 mm calcified granuloma in the upper medial aspect of the right middle lobe (image 67); There is a stable 8 mm calcified granuloma in the upper lateral aspect of the right middle lobe (image 71); There is a
stable 6 mm calcified granuloma posterior right lower lobe (image 98)
2). Mild emphysematous changes
3). Atherosclerosis
Echo: 11/03/23- Mild concentric left ventricular hypertrophy. Normal left ventricular chamber size. Normal left ventricular systolic function. Left ventricular ejection fraction is 56% by Funez' s method. Diastolic function indeterminate due to
atrial fibrillation. Mildly dilated right atrium. Mildly dilated aortic root. 3.9 cm. Since echo 11/05/17, there is no significant change. LVH has improved from moderate to mild.
PFT's: 03/09/24- Did not plateau/not acceptable. FEV1 1.05L 30%, FVC 2.68L 55%, ratio 39. FEV1 1.0L 28%, TLC 65%, DLCO 44% (suspected severe obstruction, moderate restriction, moderate diffusion impairment)
.
Subjective Data
-
Date of Service:
Date of Service: July 10, 2024
Chief Complaint: Pulmonary Follow Up and Dyspnea Follow Up
Objective Data
Data Reviewed
Vital Signs / I&O / Oxygen:
Vital Signs
Temp Pulse Resp BP Pulse Ox
98.3 F 65 18 126/73 97
07/10/24 15:23 07/10/24 15:23 07/10/24 15:23 07/10/24 15:23 07/10/24 15:23
Intake and Output
07/09/24 07/10/24 07/11/24
06:59 06:59 06:59
Intake Total 1160 / 1160
Output Total 1300 / 1300 1875 / 1875
Balance -1300 / -1300 -715 / -715
SaO2 97
Nasal Cannula flow liters per 5
minute
Physical Exam
General: Respiratory Distress, Comfortable and Other (NAD)
HEENT: Normocephalic, Anicteric, Moist Mucous Membranes and Other (poor dentition)
Cardiovascular: S1-S2 and Regular Rhythm
Respiratory: Clear (overall decreased, poor air movement) and Accessory Resp Muscle Use (mild, dyspneic with conversation)
GI: Soft, Distended (obese) and Non Tender
Neurology: Awake, Alert and No Motor Deficits
Skin: Warm, Good Color, Cyanosis (n), Jaundice (n) and Rash (n)
Labs/Micro/Reports
Lab Data
07/04/24 06:47
07/07/24 08:11
[2024-07-10] MEDS: CRESTOR 10 MG PO (17:07)
[2024-07-10 21:06] LABS: Glucose - Point of Care 114 mg/dl (70-99)
[2024-07-10] MEDS: LANTUS 0.05 UNITS SC (21:08)
[2024-07-11] VITALS (8 sets, daily range): BP systolic 104–138; BP diastolic 63–82; PULSE 2; BMI 32.2
[2024-07-11 07:07] LABS: Glucose - Point of Care 109 mg/dl (70-99)
[2024-07-11] MEDS: NOVOLOG FLEXPEN-HIGH RESISTANCE SC ×3 (07:23→17:17)
[2024-07-11] MEDS: SPIRIVA RESPIMAT 2.5 MCG 2 PUFF INH (08:10)
[2024-07-11] MEDS: SYMBICORT 160/4.5 MCG INHALER 2 PUFF INH ×2 (08:10→19:43)
[2024-07-11] MEDS: PROSCAR 5 MG PO (08:44)
[2024-07-11] MEDS: ELIQUIS 5 MG PO ×2 (08:44→20:36)
[2024-07-11] MEDS: CARDIZEM CD 180 MG PO (08:44)
[2024-07-11] MEDS: LASIX 60 MG PO (08:44)
[2024-07-11] MEDS: DELTASONE 20 MG PO (08:44)
[2024-07-11] MEDS: GLUCOPHAGE 500 MG PO ×2 (08:44→17:17)
[2024-07-11] MEDS: MIRALAX PO (08:49)
--- NOTE | 2024-07-11 10:01 | W.PN.HOSP.TC ---
Today's Communication/Plan
-
await placement
wean o2 as tolerated
monitor POC
Assessment / Plan
Assessment / Plan
Physical Exam
General: not in Respiratory Distress
HEENT: Atraumatic, midflow noted
Respiratory: Dec aeration b/l. NC 5L noted
Cardiac: S1/S2
GI: Soft and Non Tender
Genito-urinary: Clear Urine
Musculoskeletal: No Cyanosis
Skin: Warm; No Jaundice
Neuro: Alert, Oriented and Other (he followed simple commands. No tremors noted )
Psych: No Agitated
73 male admitted with respiratory distress
#Acute on chronic hypoxic and hypercapnic respiratory failure requiring BiPAP therapy
Combination of CHF / COPD exacerbation/ continued tobacco use.
He is on nasal O2 with nightly and PRN Bipap. Signed Bipap Rx to be used for home.
c/w Nebulizer
s/p IV steroid, IV Lasix, changed to oral Lasix and prednisone 30mg and can downtitrate further
ABG is reviewed.
Mucolytics as needed
Now on 5L NC -wean down further as tolerated
#Acute diastolic CHF
BNP 26196
Daily weight: Lost 80-10 Kg
C/w IV Lasix BID, change to oral 60 mg QD staring 07/04
Echo 10/2023 :�Normal left ventricular systolic function. EF 56% in 10/2023 . Diastolic function indeterminate due to atrial fibrillation.�
No chest pain, negative troponin
No plan to restart entersto due to soft BP/Hyperkalemia
Consulted cardiology
# Hyperkalemia, give Lokelma
# Persistent Atrial fibrillation with mild intermittent bradycardia
Continue Eliquis
Reactive tachycardia with burst of uncontrolled rate in between.
c/w Cardizem, changed to long acting Cardizem
cont to monitor on tele for bradycardia.
# Essential hypertension
Stable
No hypotension noted
# Hyperlipidemia
Continue statin
# Diabetes
c/w metformin
s/p sliding scale, high scale
Seems to be controlled with ISS and metformin
Lantus added and continued for now.
POC 109 am. stable.
# Tobacco use
cessation advised
refused nicotine patch
# history of traumatic brain injury
# obesity
# constipation,
c/w bowel regimen with MiraLAX and Dulcolax
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 correction prognosis guarded.
update sister over the phone on 07/09
PT/OT-SNF. Cm aware. Start dispo process. Await insurance authorization.
Anticipated Discharge: Today
Subjective/Interval History
-
Date of Service: July 11, 2024
remains on 5L oxygen
denies sob
Objective Data
-
Vital Signs:
Vital Signs
Temp Pulse Resp BP Pulse Ox
97.6 F 70 22 129/69 91
07/11/24 07:24 07/11/24 08:44 07/11/24 08:15 07/11/24 08:44 07/11/24 08:15
I&O
07/10/24 07/11/24 07/12/24
06:59 06:59 06:59
Intake Total 1160 / 1160 1640 / 1640
Output Total 1875 / 1875 1550 / 1550
Balance -715 / -715 90 / 90
[2024-07-11 11:58] LABS: Glucose - Point of Care 117 mg/dl (70-99)
[2024-07-11 17:12] LABS: Glucose - Point of Care 143 mg/dl (70-99)
[2024-07-11] MEDS: CRESTOR 10 MG PO (17:17)
[2024-07-11 21:31] LABS: Glucose - Point of Care 91 mg/dl (70-99)
[2024-07-11] MEDS: LANTUS 0.05 UNITS SC (22:01)
[2024-07-12] VITALS (10 sets, daily range): BP systolic 104–146; BP diastolic 67–96; PULSE 2–84; O2SAT 94–96; BMI 32.0
[2024-07-12] MEDS: SYMBICORT 160/4.5 MCG INHALER 2 PUFF INH ×2 (07:31→20:03)
[2024-07-12] MEDS: SPIRIVA RESPIMAT 2.5 MCG 2 PUFF INH (07:31)
[2024-07-12 07:53] LABS: Glucose - Point of Care 131 mg/dl (70-99)
[2024-07-12] MEDS: NOVOLOG FLEXPEN-HIGH RESISTANCE SC ×2 (08:05→13:21)
[2024-07-12 08:31] LABS: % Basophils 0.3 % (0-2); % Eosinophils 1.1 % (0-6); % Immature Granulocytes 0.3 % (0-0.5); % Lymphocytes 19.4 % (20.5-51.1); % Monocytes 8.8 % (1.7-9.3); % Neutrophils 70.1 % (42.2-75.2); Absolute Eosinophils 0.1 10^3/uL (0-0.7); Absolute Lymphocytes 2.1 10^3/uL (1.2-3.4); Absolute Neutrophils 7.6 10^3/uL (1.4-6.5); Hematocrit 50.9 % (39.0-52.0); Hemoglobin 16.1 g/dL (13.0-18.0); Mean Corp Hgb Conc. 31.6 g/dL (33.0-37.0); Mean Corpuscular Hgb 29.1 pg (27.0-31.0); Mean Corpuscular Volume 91.9 fL (80.0-94.0); Mean Platelet Volume 13.2 fL (7.4-10.4); Nucleated Red Blood Cells % 0 % (-); Platelet Count 169 10^3/uL (130-400); Red Blood Cell Count 5.54 10^6/uL (4.70-6.10); Red Cell Dist. Width 14.5 % (11.5-14.5); White Blood Cell Count 10.9 10^3/uL (4.8-10.8)
[2024-07-12 08:57] LABS: Blood Urea Nitrogen 32 mg/dl (9-20); Calcium 9.5 mg/dl (8.4-10.2); Carbon Dioxide 37 mmol/L (22-30); Chloride 93 mmol/L (98-107); Estimated Creatinine Clearance 112 ml/min; Glucose 121 mg/dl (70-99); Potassium 4.7 mmol/L (3.5-5.1); Sodium 141 mmol/L (135-145); eGFR > 60.00
[2024-07-12] MEDS: CARDIZEM CD 180 MG PO (09:11)
[2024-07-12] MEDS: PROSCAR 5 MG PO (09:11)
[2024-07-12] MEDS: DELTASONE 20 MG PO (09:11)
[2024-07-12] MEDS: LASIX 60 MG PO (09:11)
[2024-07-12] MEDS: GLUCOPHAGE 500 MG PO ×2 (09:11→17:36)
[2024-07-12] MEDS: ELIQUIS 5 MG PO ×2 (09:12→22:21)
[2024-07-12] MEDS: MIRALAX PO (09:12)
--- NOTE | 2024-07-12 10:03 | W.PN.HOSP.TC ---
Today's Communication/Plan
-
dc
Assessment / Plan
Assessment / Plan
Physical Exam
General: not in Respiratory Distress
HEENT: Atraumatic, midflow noted
Respiratory: Dec aeration b/l. NC 5L noted
Cardiac: S1/S2
GI: Soft and Non Tender
Genito-urinary: Clear Urine
Musculoskeletal: No Cyanosis
Skin: Warm; No Jaundice
Neuro: Alert, Oriented and Other (he followed simple commands. No tremors noted )
Psych: No Agitated
73 male admitted with respiratory distress
#Acute on chronic hypoxic and hypercapnic respiratory failure requiring BiPAP therapy
Combination of CHF / COPD exacerbation/ continued tobacco use.
He is on nasal O2 with nightly and PRN Bipap. Signed Bipap Rx to be used for home.
c/w Nebulizer
s/p IV steroid, IV Lasix, changed to oral Lasix and prednisone 30mg and can downtitrate further
ABG is reviewed.
Mucolytics as needed
Now on 5L NC -wean down further as tolerated
#Acute diastolic CHF
BNP 34798
Daily weight: Lost 80-10 Kg
C/w IV Lasix BID, change to oral 60 mg QD staring 07/04
Echo 10/2023 :�Normal left ventricular systolic function. EF 56% in 10/2023 . Diastolic function indeterminate due to atrial fibrillation.�
No chest pain, negative troponin
No plan to restart entersto due to soft BP/Hyperkalemia
Consulted cardiology
# Hyperkalemia, give Lokelma
# Persistent Atrial fibrillation with mild intermittent bradycardia
Continue Eliquis
Reactive tachycardia with burst of uncontrolled rate in between.
c/w Cardizem, changed to long acting Cardizem
cont to monitor on tele for bradycardia.
# Essential hypertension
Stable
No hypotension noted
# Hyperlipidemia
Continue statin
# Diabetes
c/w metformin
s/p sliding scale, high scale
Seems to be controlled with ISS and metformin
Lantus added and continued for now.
POC 109 am. stable.
# Tobacco use
cessation advised
refused nicotine patch
# history of traumatic brain injury
# obesity
# constipation,
c/w bowel regimen with MiraLAX and Dulcolax
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 terminal operations supervisor prognosis guarded.
update sister over the phone on 07/09
PT/OT-SNF. Cm aware. Start dispo process. Await insurance authorization.
Total time spent to see the patient on the floor, examine the patient, review data and lab results, discuss treatment plan with patient, nursing staff around 45 minutes
Anticipated Discharge: Today
Subjective/Interval History
-
Date of Service: July 12, 2024
No chest pain
No sob
No abd pain
No cough
Objective Data
-
Labs:
Laboratory Results
07/12/24
08:10
WBC 10.9 H
Hgb 16.1
Hct 50.9
Plt Count 169
Sodium 141
Potassium 4.7
Chloride 93 L
Carbon Dioxide 37 H
BUN 32 H
Creatinine 0.8
Glucose 121 H
Calcium 9.5
Vital Signs:
Vital Signs
Temp Pulse Resp BP Pulse Ox
97.6 F 70 20 104/74 91
07/12/24 07:35 07/12/24 09:11 07/12/24 07:35 07/12/24 09:11 07/12/24 07:35
I&O
07/11/24 07/12/24 07/13/24
06:59 06:59 06:59
Intake Total 1640 / 1640 1257 / 1257
Output Total 1550 / 1550 1974
Balance 90 / 90 -718 / -718
[2024-07-12 11:40] LABS: Glucose - Point of Care 133 mg/dl (70-99)
--- NOTE | 2024-07-12 11:55 | CM ---
Spoke with sister Linda [phone]
Spoke with Bere [facility] accepted him.
Molly from [facility] faxed Bipap script and clinical.
Pt is on 5 liter oxygen also Pox 96%.
07/09/24 attempted to start auth in [employer] but was blocked.
[employer] started today Ref #[id number] . PT OT evals done today . Clinical faxed to [facility] [phone].
Awaiting auth
PLAN Awaiting auth for [facility]
[2024-07-12 16:47] LABS: Glucose - Point of Care 147 mg/dl (70-99)
[2024-07-12] MEDS: NOVOLOG FLEXPEN-HIGH RESISTANCE 1 UNITS SC (17:36)
[2024-07-12] MEDS: CRESTOR 10 MG PO (17:36)
[2024-07-12 21:59] LABS: Glucose - Point of Care 90 mg/dl (70-99)
[2024-07-12] MEDS: LANTUS 0.05 UNITS SC (22:20)
[2024-07-13 03:14] VITALS: BP 138/77
[2024-07-13 03:47] VITALS: PULSE 2
[2024-07-13 06:00] VITALS: BMI 31.8
[2024-07-13 07:16] VITALS: BP 139/65
[2024-07-13 08:03] LABS: Glucose - Point of Care 122 mg/dl (70-99)
[2024-07-13] MEDS: NOVOLOG FLEXPEN-HIGH RESISTANCE SC ×3 (08:07→16:53)
[2024-07-13] MEDS: SYMBICORT 160/4.5 MCG INHALER 2 PUFF INH (08:34)
[2024-07-13] MEDS: SPIRIVA RESPIMAT 2.5 MCG 2 PUFF INH (08:34)
[2024-07-13] MEDS: GLUCOPHAGE 500 MG PO ×2 (10:09→17:40)
[2024-07-13] MEDS: CARDIZEM CD 180 MG PO (10:09)
[2024-07-13] MEDS: DELTASONE 20 MG PO (10:09)
[2024-07-13] MEDS: LASIX 60 MG PO (10:09)
[2024-07-13] MEDS: PROSCAR 5 MG PO (10:10)
[2024-07-13] MEDS: MIRALAX PO (10:10)
[2024-07-13] MEDS: ELIQUIS 5 MG PO (10:10)
--- NOTE | 2024-07-13 10:36 | W.PN.HOSP.TC ---
Today's Communication/Plan
-
dc
Assessment / Plan
Assessment / Plan
Physical Exam
General: not in Respiratory Distress
HEENT: Atraumatic, midflow noted
Respiratory: Dec aeration b/l. NC 5L noted
Cardiac: S1/S2
GI: Soft and Non Tender
Genito-urinary: Clear Urine
Musculoskeletal: No Cyanosis
Skin: Warm; No Jaundice
Neuro: Alert, Oriented and Other (he followed simple commands. No tremors noted )
Psych: No Agitated
73 male admitted with respiratory distress
#Acute on chronic hypoxic and hypercapnic respiratory failure requiring BiPAP therapy
Combination of CHF / COPD exacerbation/ continued tobacco use.
He is on nasal O2 with nightly and PRN Bipap. Signed Bipap Rx to be used for home.
c/w Nebulizer
s/p IV steroid, IV Lasix, changed to oral Lasix and prednisone 20mg and then 10 mg then stop
ABG is reviewed.
Mucolytics as needed
Now on 5L NC -wean down further as tolerated
#Acute diastolic CHF
BNP 30507
Daily weight: Lost 80-10 Kg
C/w IV Lasix BID, change to oral 60 mg QD staring 07/04
Echo 10/2023 :�Normal left ventricular systolic function. EF 56% in 10/2023 . Diastolic function indeterminate due to atrial fibrillation.�
No chest pain, negative troponin
No plan to restart entersto due to soft BP/Hyperkalemia
Consulted cardiology
# Hyperkalemia, give Lokelma
# Persistent Atrial fibrillation with mild intermittent bradycardia
Continue Eliquis
Reactive tachycardia with burst of uncontrolled rate in between.
c/w Cardizem, changed to long acting Cardizem
cont to monitor on tele for bradycardia.
# Essential hypertension
Stable
No hypotension noted
# Hyperlipidemia
Continue statin
# Diabetes
c/w metformin
s/p sliding scale, high scale
Seems to be controlled with ISS and metformin
Lantus added and continued for now.
POC 109 am. stable.
# Tobacco use
cessation advised
refused nicotine patch
# history of traumatic brain injury
# obesity
# constipation,
c/w bowel regimen with MiraLAX and Dulcolax
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 detention prognosis guarded.
update sister over the phone on 07/09
PT/OT-SNF. Cm aware. Start dispo process. Await insurance authorization.
Total discharge time spent to see the patient on the floor, examine the patient, review data and lab results, discuss discharge plan with patient, nursing staff around 67 minutes
Anticipated Discharge: Today
Subjective/Interval History
-
Date of Service: July 13, 2024
No chest pain
No sob
No fevers
Objective Data
-
Vital Signs:
Vital Signs
Temp Pulse Resp BP Pulse Ox
98 F 61 16 139/65 96
07/13/24 07:16 07/13/24 10:09 07/13/24 08:53 07/13/24 10:09 07/13/24 08:53
I&O
07/12/24 07/13/24 07/14/24
06:59 06:59 06:59
Intake Total 1257 / 1257 960 / 960
Output Total 1974 / 1974 900 / 900
Balance -718 / -718 60 / 60
--- NOTE | 2024-07-13 11:15 | CM ---
Addendum entered by Ema Mccauley RN 07/13/24 15:52:
Called Maxi spoke Flower Caruso who said case was approved by emergency medical tech. ALSO [facility] CONFIRMED CASE WAS APPROVED FOR 7 DAYS 07/13 TO 07/19/24 nnd 07/20/24 FAX [phone] OR CALL JOSE [phone] donovan Haynes rep aware. Spoke with RN on
floor and ambulance rescheduled for 6:00pm . Sister Linda was called she is happy he is accepted at [facility] today. Sister has been in contact with his group [employer]
Original Note:
MD entered order for discharge
Spoke with Donovan Haynes [facility] accepted him.
Donovan Haynes faxed Bipap script..
Pt is on 5 liter oxygen also Pox 96%.
[employer] Ref #[id number] . Avail[employer] checked several times today . Pending . LM with Sujata German rep [phone] to establish auth .
Awaiting auth
[place]
report [phone]
fax [phone]
PLAN Awaiting auth for [facility]
[2024-07-13 12:01] LABS: Glucose - Point of Care 124 mg/dl (70-99)
[2024-07-13 15:24] VITALS: BP 134/76
--- NOTE | 2024-07-13 16:07 | PTCARENOTE ---
Called [facility] to give report and I left message for nurse to return my call.
[2024-07-13 16:41] LABS: Glucose - Point of Care 125 mg/dl (70-99)
[2024-07-13] MEDS: CRESTOR 10 MG PO (17:40)
--- NOTE | 2024-07-14 06:42 | W.DCSUMMARY ---
Discharge Summary
Discharge Data
Date of Admission: 06/28/24
Date of Discharge: 07/13/24
-
Pending Results: No
Hospital Course
73 years old male presented with shortness of breath and coughing. Patient had history of chronic obstructive disease and active tobacco use. Patient was found to have acute on chronic hypoxic and hypercapnic respiratory failure. He was placed on
BiPAP therapy and admitted to the intensive care unit. Patient was evaluated by pulmonary doctor. Patient received intravenous steroid and nebulizer treatment. He was also diagnosed with acute diastolic heart failure. He was giving intravenous
Lasix. Patient was counseled regarding tobacco use. Patient had history of traumatic brain injury and learning disability. He left in sober home. Subsequently, patient was able to stabilize on nasal oxygen but continued to require BiPAP therapy
at night. Pulmonary doctor recommended to continue BiPAP therapy at night and as needed. His oxygenation stabilized. He was weaned off steroids slowly. Motion Picture Scene Builder followed the patient. Recommended to hold Entresto for now due to borderline
hypotension and hyperkalemia. Patient did not have signs of infection. He was maintained on Eliquis for history of persistent atrial fibrillation. He had uncontrolled heart rate was started on Cardizem treatment with good result. Patient was
evaluated by physical therapy. agronomy research manager was involved in his discharge plan. His daughter and brother were also involved. He remained hemodynamically stable and was discharged to senior care facility. Patient was discharged in a stable
condition.
Discharge Plan
-
Patient Disposition: [facility]cf/SNF
Discharge Diagnosis/Procedures: -Acute on chronic hypoxic and hypercapnic respiratory failure requiring BiPAP therapy, continue with BiPAP at night. Is on oxygen during the day.
Continue with nebulizer treatment, taper prednisone.
History of tobacco use
Will need to follow with pulmonary doctor
-Acute diastolic heart failure was followed by cardiology, will need to f/w cardiology, recheck BMP in 3 days.
-Persistent atrial fibrillation, continue with Eliquis
-Diabetes
-Hyperlipidemia/primary hypertension
-History of traumatic brain injury
-Obesity/constipation
Diet: Diabetic, Carb Controlled
Blood Work: BMP in 3 days
Instructions: *PCP/Other Motion Picture Scene Builder Heart Failure Instructions
Referrals:
Niko Lal MD [Active] - in two to four weeks (Spirometry)
Júnior Burgess DO [Active] - in two to three weeks
Frederick Vázquez DO [Family Provider] -
Prescriptions:
New
polyethylene glycol 3350 [HealthyLax] 17 gram Powder In Packet
17 g PO DAILY Qty: 30 0RF
diltiazem HCl 180 mg Capsule,Extended Release 24hr
180 mg PO DAILY Qty: 30 0RF
furosemide 20 mg Tablet
60 mg PO DAILY Qty: 90 0RF
albuterol sulfate 90 mcg/actuation Hfa Aerosol Inhaler
2 puff inhalation R Q4HPRN PRN (Reason: SOB/wheezing) Qty: 30 0RF
Spiriva Respimat 2.5 mcg/actuation Mist
2 puff inhalation R DAILY Qty: 4 0RF
Insulin Glargine Lantus [Lantus] 5 UNITS
Subcutaneous Insulin Syringe [Syringe-Insulin] 0 UNIT
As Directed mls/hr SC HS
Ordered By: Demario Grace MD
Last Taken: 07/12/24 22:20 0.05 mls
budesonide-formoterol [Symbicort] 160-4.5 mcg/actuation Hfa Aerosol Inhaler
2 puff inhalation R BID Qty: 60 0RF
prednisone 10 mg tablet
10 mg PO DAILY Qty: 3 0RF
Continued
metformin 500 MG tablet
500 mg PO BID@0800,1700
acetaminophen 325 MG tablet
650 mg PO Q6HPRN PRN (Reason: mild pain) Qty: 30 0RF
finasteride 5 MG tablet
5 mg PO DAILY Qty: 30 0RF
rosuvastatin 10 MG tablet
10 mg PO QPM Qty: 30 0RF
Eliquis 5 mg Tablet
5 mg PO BID
therapeutic multivitamin Tablet
1 tab PO DAILY
Changed
cholecalciferol (vitamin D3) [Vitamin D3] 25 mcg (1,000 unit) Capsule
25 mcg PO DAILY Qty: 0 0RF
Discontinued
Trelegy Ellipta 200-62.5-25 mcg blister with device
1 inh INHALATION R DAILY
zinc sulfate 50 mg zinc (220 mg) Tablet
50 mg PO DAILY
Entresto 24-26 mg Tablet
1 tab PO BID
Discharge Orders:
Discharge Patient (As Directed); Ordered 07/13/24
Ordered By: Demario Grace
Discharge Date and Time
Discharge Date/Time: 07/13/24 18:57
Print Language: MONTENEGRIN
--- NOTE | 2024-07-14 14:34 | W.HF.CON ---
Heart Failure
- LV Function
Left ventricular function study result: LV Ejection fraction >40%
Ejection Fraction Percentage: 55-60
- ARNI
Patient already on ARNI: No
Heart Failure ARNI Not Indicated: LV Ejection Fraction >/= 40%
- ACEI/ARB
Patient already on ACEI/ARB: No
Heart Failure ACEI/ARB Not Indicated: LV Ejection Fraction > 40%
- Beta Sara
Patient already on Evidence Based Beta Sara: No
Heart Failure Evidence Based Beta Sara Not Indicated: LV Ejection Fraction > 40%
- Mineralocorticord Receptor Antagonist
Patient already on MRA: No
Heart Failure MRA Not Indicated: LV Ejection Fraction > 40%
- SGLT-2 Inhibitor
Patient already on SGLT-2 Inhibitor: No
Heart Failure SGLT-2 Inhibitor Not Indicated: LV Ejection Fraction >40%
- Afib Anticoagulation
Patient already on Anticoagulation for Afib: Yes
- NYHA CHF Classification
NYHA CHF Classification Level: Class III - Symptoms w/ min exertion, interferes w/ nml daily activity
- ACC/AHA Stage
ACC/AHA Stage: Stage C: Symptomatic Heart Failure
== END 2024-07-13 18:57 | DRG 291 ==
LOC: 4 EAST ACU 16:47
PROVIDERS: Hospitalist; Nurse Practitioner Family; Nurse Practitioner Gerontology; Nurse Practitioner Primary Care; Physician Assistant; ADMITTING PHYSICIAN Internal Medicine; CONSULT PHYSICIAN Internal Medicine; EMERGENCY PHYSICIAN Emergency Medicine; FAMILY PHYSICIAN Family Medicine; OTHER PHYSICIAN Internal Medicine Cardiovascular Disease
PROC: 5A09357 Assistance with Respiratory Ventilation, Less than 24 Consecutive Hours, Continuous Positive Airway Pressure (ICD-10-PCS; 2024-06-28)
DX: I11.0 Hypertensive heart disease with heart failure (principal); I50.33 Acute on chronic diastolic (congestive) heart failure; J96.21 Acute and chronic respiratory failure with hypoxia; J96.22 Acute and chronic respiratory failure with hypercapnia; J44.1 Chronic obstructive pulmonary disease with (acute) exacerbation; I48.19 Other persistent atrial fibrillation; E11.65 Type 2 diabetes mellitus with hyperglycemia; E87.5 Hyperkalemia; I44.7 Left bundle-branch block, unspecified; J43.9 Emphysema, unspecified; F17.210 Nicotine dependence, cigarettes, uncomplicated; N40.0 Benign prostatic hyperplasia without lower urinary tract symptoms; E78.5 Hyperlipidemia, unspecified; F10.10 Alcohol abuse, uncomplicated; M19.90 Unspecified osteoarthritis, unspecified site; H53.40 Unspecified visual field defects; I77.810 Thoracic aortic ectasia; F81.9 Developmental disorder of scholastic skills, unspecified; E66.9 Obesity, unspecified; K59.00 Constipation, unspecified; Z79.4 Long term (current) use of insulin; Z79.01 Long term (current) use of anticoagulants; Z87.820 Personal history of traumatic brain injury; Z11.52 Encounter for screening for COVID-19; Z88.1 Allergy status to other antibiotic agents; Z88.8 Allergy status to other drugs, medicaments and biological substances; Z79.84 Long term (current) use of oral hypoglycemic drugs; Z79.51 Long term (current) use of inhaled steroids; Z68.33 Body mass index [BMI] 33.0-33.9, adult; Z90.79 Acquired absence of other genital organ(s)
CPT/HCPCS: 71045; 71046; 80048; 80053; 82077; 82805; 82962; 83036; 83735; 83880; 84132; 84484; 85025; 85027; 85610; 85730; 87502; 87811; 93005; 93307; 94640; 94660; 96365; 96375; 97116; 97163; 97167; 97530; 97535; 99291; 99406; Q9957

== ENCOUNTER → 2025-04-13 06:59 | Outpatient (REF) | payer MEDICARE, SELFPAY | LOC: HWRAD 06:59 | PROVIDERS: ATTENDING PHYSICIAN Family Medicine | DX: J44.9 Chronic obstructive pulmonary disease, unspecified (principal) | CPT/HCPCS: 71046 ==